=== PATIENT | female | born 1945 | race Caucasian/White ===

== ENCOUNTER 2019-07-07 13:04 | Emergency (ER) | payer MEDICARE ==
[~2019-07-07] VITALS: Ht 162.6 cm; Wt 90.7 kg
[~2019-07-07 13:04] MED LIST: ASPI325 PO; CLOP75 PO; Crestor20 MG PO; ENAL10 PO; FISH1000; GABA300 PO; Glucophage1000 MG PO; HYDCHL12.5 PO; MULVIT PO; Micro-K10 MEQ PO; Nitrostat0.4 MG SL; PROBIOTIC1 EAC1; Toprol Xl50 MG PO
[2019-07-07] MEDS ORDERED: Pantoprazole So20 MG PO (14:18)
== END 2019-07-07 14:40 | disposition home or self-care (01) ==
LOC: ER 13:04
DX: S60.222A Contusion of left hand, initial encounter (principal); S00.03XA Contusion of scalp, initial encounter; S90.02XA Contusion of left ankle, initial encounter; S00.33XA Contusion of nose, initial encounter; I25.10 Atherosclerotic heart disease of native coronary artery without angina pectoris; Z87.891 Personal history of nicotine dependence; Z88.2 Allergy status to sulfonamides; Z88.8 Allergy status to other drugs, medicaments and biological substances; Z79.899 Other long term (current) drug therapy; Z79.84 Long term (current) use of oral hypoglycemic drugs; Z79.82 Long term (current) use of aspirin; W01.10XA Fall on same level from slipping, tripping and stumbling with subsequent striking against unspecified object, initial encounter
CPT/HCPCS: 70450; 73130; 99284-25

== ENCOUNTER 2019-10-10 09:25 | Day surgery (SDC) | payer MEDICARE ==
[~2019-10-10] VITALS: Ht 160 cm; Wt 90.7 kg
[~2019-10-10 09:25] MED LIST changes: -ASPI325 PO; +ASPI81CH PO; +Pantoprazole So20 MG PO
[2019-10-10] MEDS ORDERED: ALLEGRA ALLERG180 MG PO (10:03)
[2019-10-10] MEDS ORDERED: ATOR20 PO (10:03)
[2019-10-10] MEDS ORDERED: TRULICITY1.5 MG/0.5 (10:05)
[2019-10-10] MEDS ORDERED: DULO60 PO (10:06)
[2019-10-10] MEDS ORDERED: BASAGLAR K100 UNIT/1 SC (10:06)
--- NOTE | 2019-10-10 12:17 | NUR ---
1215 DR. TRINIDAD AT THE BEDSIDE AND SPOKE WITH PATIENT REGARDING CATH RESULTS AND CHANGES IN MEDICATIONS. ALL QUESTIONS ANSWERED.
[2019-10-10] MEDS ORDERED: HYDRA25 PO (12:42)
--- NOTE | 2019-10-10 14:23 | NUR ---
1330 BEGAN REMOVEING AIR FROM THE TR BAND, PATIENT TOLERATING WILL. REMAINS IN THE RECLINER CHAIR WITH AT THE BEDSIDE. 1330- 3 CC REMOVED 1342- 3 CC REMOVED 1352- 5 CC REMOVED 1400 CONTINUE TO MONITOR, NO BLEEDING NOTED.
--- NOTE | 2019-10-10 15:06 | NUR ---
PT VERBALIZED UNDERSTANDING OF D/C INSTRUCTIONS. TR BAND REMOVED FROM RIGHT WRIST, RED CLOTH DOT APPLIED. WHITE ARM BOARD ON RIGHT WRIST FOR SUPPORT. SITE APPEARED SOFT NON TENDER WITH NO ACTIVE BLEEDING, OOZING, OR PAIN NOTED. IV REMOVED FROM LFA WITH CATH INTACT, PRESSURE DRESSING APPLIED. PT WAS ABLE TO GET SELF DRESSED WITH NO NEEDED ASSISTANCE, PT DENIES NEED FOR W/C RIDE OUT TO PRIVATE VEHICLE. PT AMBULATES OUT OF DEPARTMENT WITH STEADY GAIT, AT SIDE TO DRIVE PT HOME. DISCHARGE PAPERWORK PROVIDED IN [facility]. NADN AT TIME OF DISCHARGE, ENCOURAGED TO FOLLOW UP SCHEDULED WITH PROVIDER.
== END 2019-10-10 15:11 | disposition home or self-care (01) ==
LOC: MHTC 09:25 → EDSTATUS 15:00 → ECHO 15:00 → MHTC 15:11
PROC: 4A023N7 Measurement of Cardiac Sampling and Pressure, Left Heart, Percutaneous Approach (ICD-10-PCS; principal; 2019-10-10)
PROC: B201YZZ Plain Radiography of Multiple Coronary Arteries using Other Contrast (ICD-10-PCS; principal; 2019-10-10)
PROC: B205YZZ Plain Radiography of Left Heart using Other Contrast (ICD-10-PCS; principal; 2019-10-10)
DX: I25.119 Atherosclerotic heart disease of native coronary artery with unspecified angina pectoris (principal); E11.51 Type 2 diabetes mellitus with diabetic peripheral angiopathy without gangrene; I10 Essential (primary) hypertension; E78.5 Hyperlipidemia, unspecified; G47.33 Obstructive sleep apnea (adult) (pediatric); E66.9 Obesity, unspecified; I65.21 Occlusion and stenosis of right carotid artery; I70.8 Atherosclerosis of other arteries; Z95.5 Presence of coronary angioplasty implant and graft; Z99.89 Dependence on other enabling machines and devices; Z79.899 Other long term (current) drug therapy; Z79.82 Long term (current) use of aspirin; Z79.4 Long term (current) use of insulin; Z87.891 Personal history of nicotine dependence; Z88.2 Allergy status to sulfonamides
CPT/HCPCS: 93005; 93010; 93458; 99152; 99153; C1769; C1894; J1644; J2250; J3010; J7030; Q9967

== ENCOUNTER 2020-06-29 13:45 | Emergency (ER) | payer MEDICARE ==
[~2020-06-29] VITALS: Ht 160 cm; Wt 90.7 kg
[~2020-06-29 13:45] MED LIST changes: +ALLEGRA ALLERG180 MG PO; -ASPI81CH PO; -GABA300 PO; -Glucophage1000 MG PO; +HYDRA25 PO; -Micro-K10 MEQ PO; -Nitrostat0.4 MG SL; -Pantoprazole So20 MG PO
[2020-06-29] MEDS ORDERED: ATORVASTATIN CA80 M1 PO (14:40)
[2020-06-29] MEDS ORDERED: DULO60 PO (14:41)
[2020-06-29] MEDS ORDERED: BASAGLAR K100 UNIT/1 SC (14:41)
[2020-06-29] MEDS ORDERED: GABA300 PO (14:42)
[2020-06-29] MEDS ORDERED: ENALAPRIL MALEA PO (14:42)
[2020-06-29] MEDS ORDERED: Pantoprazole So20 MG PO (14:43)
[2020-06-29] MEDS ORDERED: METF500 PO (14:43)
[2020-06-29] MEDS ORDERED: Micro-K10 MEQ PO (14:44)
[2020-06-29] MEDS ORDERED: PRAMIPEXOLE0.125 M1 PO (14:44)
[2020-06-29] MEDS ORDERED: TRULICITY1.5 MG/0.1 SC (14:45)
[2020-06-29] MEDS ORDERED: FUROSEMIDE20 MG PO (14:46)
[2020-06-29] MEDS ORDERED: GLIP5 PO (14:47)
[2020-06-29] MEDS ORDERED: JARDIANCE10 MG PO (14:48)
[2020-06-29] MEDS ORDERED: Nitrostat0.4 MG SL (14:49)
[2020-06-29] MEDS ORDERED: INSULIN LI100 UNIT/6 SC (14:49)
[2020-06-29] MEDS ORDERED: Aspir 8181 MG PO (14:51)
[2020-06-29] MEDS ORDERED: MAGNESIUM OXID500 MG PO (17:05)
== END 2020-06-29 17:11 | disposition home or self-care (01) ==
LOC: ER 13:45
DX: R07.89 Other chest pain (principal); E11.65 Type 2 diabetes mellitus with hyperglycemia; E83.42 Hypomagnesemia; I25.10 Atherosclerotic heart disease of native coronary artery without angina pectoris; I10 Essential (primary) hypertension; Z95.5 Presence of coronary angioplasty implant and graft; Z88.2 Allergy status to sulfonamides; Z88.8 Allergy status to other drugs, medicaments and biological substances; Z79.4 Long term (current) use of insulin; Z79.899 Other long term (current) drug therapy; Z87.891 Personal history of nicotine dependence
CPT/HCPCS: 36415; 82947; 93005; 93010; 93931; 99285-25; J1815

== ENCOUNTER 2020-08-24 21:05 | Inpatient (IN) | payer MEDICARE ==
[~2020-08-24] VITALS: Ht 165.1 cm; Wt 93.9 kg
[~2020-08-24 21:05] MED LIST changes: +ATORVASTATIN CA80 M1 PO; +Aspir 8181 MG PO; +DULO60 PO; +ENALAPRIL MALEA PO; +FUROSEMIDE20 MG PO; +GABA300 PO; +GLIP5 PO; +INSULIN LI100 UNIT/6 SC; +JARDIANCE10 MG PO; +MAGNESIUM OXID500 MG PO; +METF500 PO; +Micro-K10 MEQ PO; +TRULICITY1.5 MG/0.1 SC
[2020-08-24 21:38] LABS: BASOPHILS PERCENT AUTO 1 % (0-2); EOSINOPHILS ABSOLUTE AUTO 0.22 K/mm3 (0.00-0.68); EOSINOPHILS PERCENT AUTO 1 % (0-6); Hemoglobin 15.2 g/dL (11.5-16.0); IMMATURE GRAN ABSOLUTE AUTO 0.49 K/mm3 (0.00-0.10); IMMATURE GRAN PERCENT AUTO 2 % (0-1); LYMPHOCYTES ABSOLUTE AUTO 11.33 K/mm3 (0.84-5.20); LYMPHOCYTES PERCENT AUTO 43 % (21-46); MONOCYTES ABSOLUTE AUTO 1.38 K/mm3 (0.16-1.47); MONOCYTES PERCENT AUTO 5 % (4-13); Mean Corpuscular HGB 29.7 pg (26.0-34.0); Mean Corpuscular HGB Conc 29.8 g/dL (31.5-36.5); Mean Corpuscular Volume 100 fL (80-100); Mean Platelet Volume 11.9 fL (9.1-12.4); NEUTROPHILS ABSOLUTE AUTO 13.05 K/mm3 (1.96-9.15); NEUTROPHILS PERCENT AUTO 49 % (41-73); Platelet Count 267 K/mm3 (150-400); Red Blood Cell Count 5.12 M/mm3 (3.80-5.20); White Blood Cell Count 26.67 K/mm3 (4.00-11.30)
[2020-08-24 21:40] LABS: Chloride (POC) 104 mmol/L (98-108); Creatinine (POC) 1.1 mg/dL (0.6-1.0); Glucose (ISTAT POC) 536 mg/dL (70-99); Hemoglobin (POC) 16.7 g/dL (12.0-16.0); Potassium (POC) 4.9 mmol/L (3.5-5.5); Sodium (POC) 137 mmol/L (135-148); Total CO2 (POC) 24 mmol/L (21-32)
[2020-08-24 21:54] LABS: PCO2 Arterial 46.9 mmHg (35-45); PO2 Arterial 102 mmHg (80-100); pH Blood Arterial 7.25 (7.35-7.45)
[2020-08-24 21:59] LABS: Albumin, Blood 3.5 g/dL (3.4-5.0); Albumin/Globulin Ratio 0.7 (0.8-1.8); Bilirubin, Total 0.7 mg/dL (0.1-1.0); Bun/Creatinine Ratio 19.2 (12.0-20.0); Calcium, Blood 9.4 mg/dL (8.5-10.1); Creatinine, Blood 0.99 mg/dL (0.40-1.00); Globulin, Blood 4.7 g/dL (2.2-4.0); Potassium, Blood 4.6 mmol/L (3.5-5.5); Total Protein, Blood 8.2 g/dL (6.4-8.2); Troponin I 0.125 ng/mL (0.000-0.040)
[2020-08-24 22:04] LABS: BAND PERCENT MAN 4 % (0-8); BASOPHILS PERCENT MAN 0 % (0-2); EOSINOPHILS ABSOLUTE MAN 0.26 K/mm3 (0.00-0.68); EOSINOPHILS PERCENT MAN 1 % (0-6); LYMPHOCYTES ABSOLUTE MAN 9.06 K/mm3 (0.84-5.20); LYMPHOCYTES PERCENT MAN 34 % (21-46); MONOCYTES ABSOLUTE MAN 0.26 K/mm3 (0.16-1.47); MONOCYTES PERCENT MAN 1 % (4-13); MYELOCYTE ABSOLUTE MAN 0.26 K/mm3 (0.00-0.00); MYELOCYTE PERCENT MAN 1 % (0-0); SEG NEUTROPHILS PERCENT MAN 59 % (41-73); TOTAL CELLS COUNTED 100
[2020-08-24 22:20] LABS: Influenza A, PCR Negative (NEGATIVE); Influenza B, PCR Negative (NEGATIVE); Resp Syncytial Virus, PCR Negative (NEGATIVE); SARS-Cov-2 (COVID-19) PCR, MMC Negative (NEGATIVE)
[2020-08-24 22:41] LABS: Source, Urine Catheter
[2020-08-24 22:43] LABS: Bilirubin, Urine Neg (Neg); Blood, Urine 2+ (Neg); Glucose Qualitative, Urine 4+ (Neg); Ketones, Urine Neg (Neg); Leukocyte Esterase, Urine Neg (Neg); Nitrite, Urine Neg (Neg); Protein, Urine 3+ (Neg); Specific Gravity, Urine 1.015 (1.003-1.022); Urobilinogen, Urine NORM (Normal)
[2020-08-24 22:53] LABS: Amorphous Heavy (0-Heavy); Appearance, Urine Hazy (Clear); Bacteria Few /hpf; Color, Urine Yellow (P-Yellow); Hyaline Casts 25-50 /lpf (0-2); Squamous Epithelial Cells Mod /hpf (Few); White Blood Cells, Urine 0-2 /hpf (0-5)
[2020-08-24] MEDS ORDERED: AMLO10 PO (23:13)
[2020-08-24] MEDS ORDERED: ALLEGRA ALLERG180 MG PO (23:20)
[2020-08-24] MEDS ORDERED: BASAGLAR K100 UNIT/6 SC (23:24)
[2020-08-24] MEDS ORDERED: NITR.4SL SL (23:27)
[2020-08-24] MEDS ORDERED: PANT20 PO (23:28)
[2020-08-24] MEDS ORDERED: PRAMIPEXOLE0.125 M1 PO (23:31)
--- NOTE | 2020-08-25 01:05 | NUR ---
ADMIT RECEIVED FROM ER VIA GURNEY. AWAKE AND ALERT. ATTEMPTS TO TALK AND REACHES FOR ETT WHEN RESTRAINTS LOOSENED. NODS HEAD YES/NO APPROPRIATELY. FOLLOWS SIMPLE COMMANDS. INTUBATED- 8.0 ETT, 22 AT LIP. AC 16, TV 450, PEEP 5, FIO2 40%. RR 20s. MONITOR SHOWS SR WITH BBB, RATE 90s. LAST BP 84/59. OG CLAMPED AT THIS TIME. REAL PATENT AND DRAINING CLEAR YELLOW URINE. PERIPHERAL IVs NOTED X 2, PATENT. COLOR PALE AND SKIN IS COOL. SEE ADMIT ASSESSMENT FOR FULL ASSESSMENT.
--- NOTE | 2020-08-25 01:20 | NUR ---
SEDATION PT WITH INCREASED RESTLESS AND AGITATION. KICKING LEGS AND MOVING RESTLESSLY. BP IS NOW 120/70- PROPOFOL RESTARTED AT 15MCG/KG/MIN.
[2020-08-25 02:47] LABS: BASOPHILS ABSOLUTE AUTO 0.08 K/mm3 (0.00-0.23); BASOPHILS PERCENT AUTO 0 % (0-2); EOSINOPHILS PERCENT AUTO 0 % (0-6); Hematocrit 45.5 % (33.0-51.0); Hemoglobin 14.1 g/dL (11.5-16.0); IMMATURE GRAN ABSOLUTE AUTO 0.11 K/mm3 (0.00-0.10); IMMATURE GRAN PERCENT AUTO 1 % (0-1); LYMPHOCYTES ABSOLUTE AUTO 1.23 K/mm3 (0.84-5.20); LYMPHOCYTES PERCENT AUTO 6 % (21-46); MONOCYTES ABSOLUTE AUTO 1.45 K/mm3 (0.16-1.47); MONOCYTES PERCENT AUTO 7 % (4-13); Mean Corpuscular HGB 29.9 pg (26.0-34.0); Mean Corpuscular Volume 96 fL (80-100); Mean Platelet Volume 11.7 fL (9.1-12.4); NEUTROPHILS ABSOLUTE AUTO 17.22 K/mm3 (1.96-9.15); NEUTROPHILS PERCENT AUTO 86 % (41-73); Platelet Count 202 K/mm3 (150-400); RDW Coefficient Variation 15.1 % (11.7-14.2); RDW Standard Deviation 54.2 fL (35.1-46.3); Red Blood Cell Count 4.72 M/mm3 (3.80-5.20); White Blood Cell Count 20.09 K/mm3 (4.00-11.30)
[2020-08-25 03:19] LABS: Albumin, Blood 3.1 g/dL (3.4-5.0); Albumin/Globulin Ratio 0.7 (0.8-1.8); Bilirubin, Total 0.7 mg/dL (0.1-1.0); Calcium, Blood 9.1 mg/dL (8.5-10.1); Globulin, Blood 4.2 g/dL (2.2-4.0); Magnesium, Blood 2.3 mg/dL (1.6-2.4); Phosphorus, Blood 4.3 mg/dL (2.5-4.9); Total Protein, Blood 7.3 g/dL (6.4-8.2)
[2020-08-25 03:21] LABS: Troponin I 1.04 ng/mL (0.000-0.040)
--- NOTE | 2020-08-25 04:00 | NUR ---
AGITATION CALL TO DR. CARROLL REGARDING CONTINUED AGITATION DESPITE PROPOFOL AND VERSED. NEW ORDER RECEIVED FOR ATIVAN IV. ALSO NOTIFIED MD OF CRITICAL TROPONIN LEVEL.
[2020-08-25 05:46] LABS: PCO2 Arterial 43.4 mmHg (35-45); PO2 Arterial 104 mmHg (80-100); pH Blood Arterial 7.39 (7.35-7.45)
--- NOTE | 2020-08-25 06:39 | NUR ---
SHIFT SUMMARY NO ACUTE CHANGES. REMAINS INTUBATED- AC 16, TV 450, PEEP 5, FIO2 35%. RR 16-20s. SEDATED WITH PROPOFOL BETWEEN 15-30MCG/KG/MIN. NOW INFUSING AT 30MCG/KG/MIN. ALSO MEDICATED WITH VERSED 1MG IV X 2 DOSES AND ATIVAN 2MG IV X 1 DOSE DURING NOC FOR AGITATION/RESTLESSNESS. BILATERAL SOFT WRIST RESTRAINTS IN PLACE TO PROTECT TUBES/LINES. PT DOES REACH FOR ETT WHEN RESTRAINTS OFF OR LOOSENED. FOLLOWS SIMPLE COMMANDS. NODS HEAD YES/NO AT TIMES. OCCASIONALLY HYPOTENSIVE, BUT MAP =/> 60. OG CLAMPED AT THIS TIME. REAL PATENT AND DRAINING CLEAR YELLOW URINE. TMAX 99.5F PER REAL TEMP PROBE. WILL REPORT TO ONCOMING RN WHEN AVAILABLE.
--- NOTE | 2020-08-25 07:41 | NUR ---
ASSUMED CARE BEDSIDE REPORT RECIEVED. PT IS LAYING IN BED, INTUBATED, AND SEDATED. VENT SETTINGS AC 16, TV 450, PEEP 5, FIO2 35%. PT SEDATED WITH PROPOFOL AT 30 MCG/KG/MIN. PT FURROWS BROW TO VOICE AND GRIMMACES TO NOXIOUS STIMULI. PT WITHDRAWS ALL EXTREMITIES TO NOXIOUS STIMULI. PT MAEW. SBW RESTRAINTS IN PLACE. OGT IN PLACE CLAMPED AT THIS TIME. REAL TEMP PROBE IN PLACE DRAINING CLEAR YELLOW URINE. VITAL SIGNS STABLE AT THIS TIME. WILL CONTINUE TO MONITOR.
--- NOTE | 2020-08-25 17:40 | NUR ---
SHIFT SUMMARY NO ACUTE CHANGES THIS SHIFT. PT REMAINS INTUBATED AND SEDATED. VENT SETTINGS UNCHANGED AT AC 16, TV 450, PEEP 5, FIO2 35%. PT WITH MINIMAL ETT SECRETIONS. PT SEDATED WITH PROPOFOL AT 15 MCG/KG/MIN AND PRECEDEX AT 0.5 MCG/KG/MIN. PT WITH PERIODS OF RESTLESSNESS, BUT OTHERWISE CALM THROUGHOUT THE SHIFT. SBW RESTRAINTS REMAIN IN PLACE. OGT REMAINS IN PLACE, CLAMPED AT THIS TIME. POWERGLIDE PLACED TO PÉREZ IS SALINE LOCKED. REAL TEMP PROBE IN PLACE WITH YELLOW URINE OUTPUT NOTED. VITAL SIGNS STABLE, PT WITH SBP 70-100'S WITH MAP >60. DR JACKSON AWARE AND OK WITH BP'S. PT SPOUSE CAME TO VISIT FOR SHORT TIME THIS AFTERNOON. WILL CONTINUE TO MONITOR AND REPORT OFF TO ONCOMING RN.
--- NOTE | 2020-08-25 21:27 | NUR ---
ASSUMED CARE @ 1900. REPORT FROM BRETT ADAMS. PT INTUBATED, SEDATED. PROPOFOL GTT @ 15mcg/kg/min, PRECEDEX GTT @ 0.5mcg/kg/hr. VENT: AC 16/450, 5/30%. PT GRIMACES, STIRS, & FLEXES LEGS W/ TACTILE STIMULI. UNABLE TO OPEN EYES OR FOLLOW COMMANDS. LS CLEAR THROUGHOUT. ABD SOFT, NONTENDER +BT x4. REAL PATENT & DRAINING YELLOW URINE W/ SOME BROWN SEDIMENT. +1 EDEMA TO BLE. SKIN IS PINK, COOL, DRY. WILL TITRATE MEDS TO EFFECT & REPORT APPROPRIATE.
[2020-08-26 04:51] LABS: BASOPHILS ABSOLUTE AUTO 0.03 K/mm3 (0.00-0.23); BASOPHILS PERCENT AUTO 0 % (0-2); EOSINOPHILS ABSOLUTE AUTO 0.11 K/mm3 (0.00-0.68); EOSINOPHILS PERCENT AUTO 1 % (0-6); Hematocrit 39.4 % (33.0-51.0); Hemoglobin 12.6 g/dL (11.5-16.0); IMMATURE GRAN ABSOLUTE AUTO 0.04 K/mm3 (0.00-0.10); IMMATURE GRAN PERCENT AUTO 0 % (0-1); LYMPHOCYTES ABSOLUTE AUTO 2.03 K/mm3 (0.84-5.20); LYMPHOCYTES PERCENT AUTO 17 % (21-46); MONOCYTES ABSOLUTE AUTO 0.77 K/mm3 (0.16-1.47); MONOCYTES PERCENT AUTO 7 % (4-13); Mean Corpuscular HGB 29.9 pg (26.0-34.0); Mean Corpuscular Volume 94 fL (80-100); Mean Platelet Volume 11.5 fL (9.1-12.4); NEUTROPHILS ABSOLUTE AUTO 8.69 K/mm3 (1.96-9.15); NEUTROPHILS PERCENT AUTO 75 % (41-73); Platelet Count 156 K/mm3 (150-400); RDW Coefficient Variation 14.9 % (11.7-14.2); RDW Standard Deviation 51.6 fL (35.1-46.3); Red Blood Cell Count 4.21 M/mm3 (3.80-5.20); White Blood Cell Count 11.67 K/mm3 (4.00-11.30)
[2020-08-26 05:22] LABS: Albumin, Blood 3.1 g/dL (3.4-5.0); Anion Gap 7 mmol/L (6-16); Blood Urea Nitrogen 22 mg/dL (8-24); Bun/Creatinine Ratio 20.4 (12.0-20.0); CO2, Blood 28 mmol/L (21-32); Calcium, Blood 9.1 mg/dL (8.5-10.1); Chloride, Blood 107 mmol/L (98-108); Creatinine, Blood 1.08 mg/dL (0.40-1.00); Glomerular Filtration Rate 53 (60-); Glucose, Blood 177 mg/dL (70-99); Phosphorus, Blood 3.1 mg/dL (2.5-4.9); Potassium, Blood 3.5 mmol/L (3.5-5.5); Sodium, Blood 142 mmol/L (136-145)
--- NOTE | 2020-08-26 05:47 | NUR ---
SHIFT SUMMARY: PT REMAINS INTUBATED, SEDATED. VENT: AC 16/450 5/30%. PROPOFOL GTT @ 15mcg/kg/min, PRECEDEX GTT @ 0.6mcg/kg/min. RESPONDS TO TACTILE STIMULI, PULLING @ RESTRAINS & MOVING LEGS. DOES NOT OPEN EYES OR FOLLOW COMMANDS. SEDATION TITRATED UP SLIGHTLY D/T INC AGITATION, HOWEVER ATIVAN IVP WAS MOST SUCCESSFUL W/ PT COMFORT & VENT TOLERANCE. LS DIMINISHED THROUGHOUT. HR 70s. SBP 100-70s. PRESSURES CONTINUE TO BE SOFT. 850cc OF DARK YELLOW URINE W/ RED/BROWN SEDIMENT OUT THIS SHIFT. BEDBATH COMPLETE. NO ACUTE NEG CHANGES THIS SHIFT. WILL CONTINUE TO MONITOR UNTIL REPORT OFF TO ONCOMING RN.
--- NOTE | 2020-08-26 07:30 | NUR ---
REPORT FROM [facility]. PT INTUBATED AND SEDATED. VENT SETTINGS AC 16/450/5/30%. PROPOFOL GTT 15 MCG/KG/MIN, PRECEDEXT 0.6 MCG/KG/HR. PT WAKES c PAINFUL STIMULI. PULLS ON RESTRAINTS. THRASHS EXTREMITIES. DOES NOT FOLLOW COMMANDS. LUNGS CLEAR, DIMINISHED IN BASES. MODERATE AMOUNT OF THIN CLEAR SECRETIONS THROUGH ETT. COUGH/GAG/SWALLOW REFLEX PRESENT. OGT CLAMPED. ABD ROUND, SOFT, NON TENDER. BT X 4. REAL PATENT, DRAINING CLEAR YELLOW URINE TO GRAVITY. VSS. WILL CONTINUE TO MONITOR.
--- NOTE | 2020-08-26 10:35 | NUR ---
EXTUBATION PROPOFOL PLACED ON STANDBY. PT CHANGED TO SPONT VENT SETTINGS 10/5 30%. TOLERATED WELL. OCCASIONALLY ANXIOUS, PULLING ON RESTRAINTS. ABLE TO REDIRECT AND CALM. PRECEDEX PLACED ON STANDBY. PT EXTUBATED AT 1015. RESTRAINTS REMOVED. PT c WEAK COUGH. ORIENTED TO SELF. FOLLOWS SIMPLE COMMANDS. PLACED ON 2L VIA NC. WILL CONTINUE TO MONITOR.
--- NOTE | 2020-08-26 17:46 | NUR ---
SHIFT SUMMARY PT EXTUBATED THIS SHIFT. ON RA AT THIS TIME. O2 SATS >94%. LUNGS COARSE. STRONG, WET COUGH. PT SPEAKING IN FULL SENTANCES. P/W/D. ABLE TO MANAGE SECRETIONS. PASSED BEDSIDE SWALLOW EVAL. TOLERATED FULL LIQUID DINNER s DIFFICULTIES. PT A&OX 2. FOLLOWS SIMPLE COMMANDS. OCCASIONALLY ASKS REPETITVE QUESTIONS OR HAS DIFFICULTY FINDING WORDS. REAL PATENT, DRAINING TO GRAVITY, 800 ML CLEAR YELLOW URINE OUT THIS SHIFT. VSS. INCREASED PACS AFTER PRECEDEX STOPPED AND PT EXTUBATED. PT CHANGED TO PCU STATUS. WILL CONTINUE TO MONITOR UNTIL REPORT TO ONCOMING NURSE.
[2020-08-27 04:38] LABS: BASOPHILS ABSOLUTE AUTO 0.06 K/mm3 (0.00-0.23); BASOPHILS PERCENT AUTO 1 % (0-2); EOSINOPHILS ABSOLUTE AUTO 0.16 K/mm3 (0.00-0.68); EOSINOPHILS PERCENT AUTO 1 % (0-6); Hematocrit 45.7 % (33.0-51.0); Hemoglobin 14.2 g/dL (11.5-16.0); IMMATURE GRAN ABSOLUTE AUTO 0.05 K/mm3 (0.00-0.10); IMMATURE GRAN PERCENT AUTO 0 % (0-1); LYMPHOCYTES ABSOLUTE AUTO 3.06 K/mm3 (0.84-5.20); LYMPHOCYTES PERCENT AUTO 26 % (21-46); MONOCYTES ABSOLUTE AUTO 0.89 K/mm3 (0.16-1.47); MONOCYTES PERCENT AUTO 7 % (4-13); Mean Corpuscular HGB 29.7 pg (26.0-34.0); Mean Corpuscular HGB Conc 31.1 g/dL (31.5-36.5); Mean Corpuscular Volume 96 fL (80-100); Mean Platelet Volume 11.2 fL (9.1-12.4); NEUTROPHILS ABSOLUTE AUTO 7.76 K/mm3 (1.96-9.15); NEUTROPHILS PERCENT AUTO 65 % (41-73); Platelet Count 245 K/mm3 (150-400); RDW Coefficient Variation 15.1 % (11.7-14.2); RDW Standard Deviation 54.1 fL (35.1-46.3); Red Blood Cell Count 4.78 M/mm3 (3.80-5.20); White Blood Cell Count 11.98 K/mm3 (4.00-11.30)
[2020-08-27 04:58] LABS: Albumin, Blood 3.3 g/dL (3.4-5.0); Anion Gap 7 mmol/L (6-16); Blood Urea Nitrogen 19 mg/dL (8-24); Bun/Creatinine Ratio 20.8 (12.0-20.0); CO2, Blood 28 mmol/L (21-32); Calcium, Blood 9.9 mg/dL (8.5-10.1); Chloride, Blood 109 mmol/L (98-108); Creatinine, Blood 0.92 mg/dL (0.40-1.00); Glomerular Filtration Rate >60 (60-); Glucose, Blood 153 mg/dL (70-99); Phosphorus, Blood 3.5 mg/dL (2.5-4.9); Potassium, Blood 3.6 mmol/L (3.5-5.5); Sodium, Blood 144 mmol/L (136-145)
--- NOTE | 2020-08-27 06:34 | NUR ---
PT MENTATION HAS CLEARED THROUGHOUT SHIFT, INITIAL WORD SEARCHING AND REPITITION WAS NOTED HOWEVER THIS WAS DECREASED AT MIDNOC ASSESSMENT AND NO LONGER PRESENT BY 0400 ASSESSMENT THIS AM. SHE HAS DENIED NEEDS THROUGHOUT NOC AND REPORTED THAT HER BREATHING CONTINUES TO FEEL IMPROVED WITH SATS MAINTAINING CURRENTLY ON ROOM AIR. SHE IS ABLE TO TOLERATE REPOSITIONING HERSELF WELL WITH OCCASIONAL ASSIST WITH PILLOW PLACEMENT FOR COMFORT. SHE CONTINUES TO HAVE BASELINE SINUS RHYTHM WITH FREQUENT PACS NOTED, PRESSURES HAVE MAINTAINED STABLE THROUGHOUT NOC.
--- NOTE | 2020-08-27 08:00 | NUR ---
ASSUMED CARE RECEIVED REPORT FROM BRETT WILSON. PT IS SITTING UP IN BED WAITING FOR BREAKFAST, SHE IS ALERT, AND ORIENTED TO SELF, SURROUNDINGS, AND THE MONTH. SHE ISN'T SURE OF WHAT ALL HAPPENED SINCE SHES BEEN HERE. HR IN THE 90-low 100s, DENIES CHEST PAIN AND SOB. C/O HEADACHE. REAL CATHETER PATENT AND DRAINING TO GRAVITY. ON ROOM AIR, SPO2 ~92%. BED LOW AND LOCKED. PT ABLE TO MOVE AROUND IN BED - OKAY, JUST NEEDS HELP OCCASSIONALY WITH PILLOWS. CALL LIGHT WITHIN REACH.
--- NOTE | 2020-08-27 17:53 | NUR ---
Pt sitting in chair upon arrival. Pt denies pain, nausea, and dyspnea at this time. Pt reports at baseline experiencing significant SOB with ambulation. Pt's present during visit. Engaged in therapeutic discussion regarding AD/POLST. Discussed current POLST on file. Educated on life sustaining treatment including risk factors and implications. Educated on AD and each section to complete. Offered therapeutic listening and answered questions. Dr Grossman arrives and discusses plan of care and potential for D/C tomorrow. Assisted with asking questions that were brought up prior to MD arrival. Dr Grossman answers questions with Pt and spouse agreeable with plan. Pt and spouse expresses appreciation of visit and report no other concerns at this time. Provided Palliative Care contact information and instructed to call with any questions or concerns. Spoke with Bedside BRETT Bishop and discussed case. Palliative Care will remain available.
--- NOTE | 2020-08-27 18:45 | NUR ---
ASSUMED CARE RECEIVED REPORT FROM BRETT FELIZ. ASSUMED CARE OF PT. PT RESTING COMFORTABLY, NO S/S ACUTE DISTRESS NOTED. RESPS E/U. DENIES NEEDS AT THIS TIME. CALL LIGHT, POSSESSIONS IN REACH, BED IN LOW POSITION. WCTM.
--- NOTE | 2020-08-27 19:02 | NUR ---
Received report from [facility] ICU-RN. Patient arrived from ICU 13 to Med 327 @ approximately 1845 via w/c. Patient settled to room, call light near by, bed in lowest position. CPAP at bedside. Report handed off to MECHE Ford NOC.
--- NOTE | 2020-08-27 19:55 | NUR ---
UPDATE PT TRANSFERRING TO MEDICAL FLOOR, ROOM 327. PT IS ALERT AND ORIENTED X 4, OCCASSIONALLY HAVING DIFFICULTY REMEMBERING DOCTORS' AND STAFFS' NAMES, AND IS SOMETIMES HAVING TROUBLE FINDING THE RIGHT WORD, BUT THAT IS SELDOM. AND HERSELF ARE SLIGHLTY CONCERNED ABOUT WHY THIS IS. THIS RN PASSED THAT ALONG TO [facility] FLOOR RN. SHE HAS HAD A GOOD DAY TODAY, NO CHEST PAIN, NO SHORTNESS OF BREATH, NO NAUSEA, ETC... SHE GOT UP TO THE COMMODE TWICE TODAY, AND SAT IN THE CHAIR FOR HALF THE DAY. HER REAL WAS REMOVED, AND SHE VOIDED SINCE THEN. HER APPETITE WAS NOT GREAT, SHE ATE VERY MINIMAL. WE DISCUSSED HEART FAILURE MANAGEMENT TODAY, WE HAD A LONG TALK REGARDING: MEDICATIONS (LIKE SPIRONALACTONE- A NEW ONE FOR HER), AND MEDICATION ADHERENCE, DAILY WEIGHTS (WITH SAME GENERAL CLOTHING, AND AT SAME TIME EACH MORNING IF POSSIBLE), LIMITING SALT INTAKE, GETTING SOME ACTIVITY T/O DAY (AKA NOT SITTING FOR LONG PERIODS OF TIME), THE SIGNS AND SYMPTOMS OF HEART FAILURE EXACERBATIONS AND PULMONARY EDEMA, AND WE TALKED ABOUT STRESS MANAGMENT. SHE MAY NOT HAVE THE BEST SHORT TERM MEMORY, BUT SHE SEEMED TO RETAIN THIS INFORMATION WELL - I TESTED HER ON IT LATER IN THE DAY AND SHE DID WELL. PT HAS HAD A HEADACHE, THAT HAS BEEN SUFFICIENTLY TAKEN CARE BY 650 MG TYLENOL. PT ON ROOM AIR, VITALS STABLE, AND PT HAS HAD NO MAJOR COMPLAINTS T/O DAY. AT BEDSIDE DURING VISITING HOURS, HE HAS BEEN UPDATED ON PLAN OF CARE. SUZY WAS TALKED TO LATE MORNING TODAY AND WAS UPDATED. THE WILL TELL THE DAUGHTER, SUZY, ABOUT THE TRANSFER TO MEDICAL FLOOR. PT AND OT WERE CONSULTED TODAY, THE PT AND HER ARE CONCERNED ABOUT HER NOT RETURNING TO BASELINE STRENGTH PRIOR TO BEING DISCHARGED. PT AND OT HAVE BEEN TOLD TO COME IN THE MORNING TOMORROW, SO THEIR EVALUATION CAN BE PUT IN CONSIDERATION IF THEY HAPPEN TO BE DISCHARGED TOMORROW.
[2020-08-28 05:47] LABS: BASOPHILS ABSOLUTE AUTO 0.08 K/mm3 (0.00-0.23); BASOPHILS PERCENT AUTO 1 % (0-2); EOSINOPHILS PERCENT AUTO 3 % (0-6); Hematocrit 46.5 % (33.0-51.0); Hemoglobin 14.5 g/dL (11.5-16.0); IMMATURE GRAN ABSOLUTE AUTO 0.06 K/mm3 (0.00-0.10); IMMATURE GRAN PERCENT AUTO 1 % (0-1); LYMPHOCYTES ABSOLUTE AUTO 2.41 K/mm3 (0.84-5.20); LYMPHOCYTES PERCENT AUTO 21 % (21-46); MONOCYTES ABSOLUTE AUTO 0.91 K/mm3 (0.16-1.47); MONOCYTES PERCENT AUTO 8 % (4-13); Mean Corpuscular HGB 29.7 pg (26.0-34.0); Mean Corpuscular HGB Conc 31.2 g/dL (31.5-36.5); Mean Corpuscular Volume 95 fL (80-100); Mean Platelet Volume 10.8 fL (9.1-12.4); NEUTROPHILS ABSOLUTE AUTO 7.88 K/mm3 (1.96-9.15); NEUTROPHILS PERCENT AUTO 68 % (41-73); Platelet Count 245 K/mm3 (150-400); RDW Coefficient Variation 14.9 % (11.7-14.2); RDW Standard Deviation 52.8 fL (35.1-46.3); Red Blood Cell Count 4.89 M/mm3 (3.80-5.20); White Blood Cell Count 11.64 K/mm3 (4.00-11.30)
[2020-08-28 06:13] LABS: Albumin, Blood 3.1 g/dL (3.4-5.0); Anion Gap 5 mmol/L (6-16); Blood Urea Nitrogen 20 mg/dL (8-24); Bun/Creatinine Ratio 19.4 (12.0-20.0); CO2, Blood 29 mmol/L (21-32); Calcium, Blood 9.9 mg/dL (8.5-10.1); Chloride, Blood 107 mmol/L (98-108); Creatinine, Blood 1.03 mg/dL (0.40-1.00); Glomerular Filtration Rate 56 (60-); Glucose, Blood 214 mg/dL (70-99); Phosphorus, Blood 4.8 mg/dL (2.5-4.9); Potassium, Blood 4.3 mmol/L (3.5-5.5); Sodium, Blood 141 mmol/L (136-145)
--- NOTE | 2020-08-28 07:05 | NUR ---
SHIFT SUMMARY PT RESTING COMFORTABLY, NO S/S ACUTE DISTRESS NOTED. WAS MONITORED EVERY 1-2 HOURS WITH NEEDS MET. VS REVIEWED, WNL, 02 SATS STABLE ON CPAP T/O NIGHT, 92-94%. PT DENIES SOB, DYSPNEA. UP TO BSC W/O DIFFICULTY, TOLERATED WELL. DENIES PAIN OR NEEDS AT THIS TIME. CALL LIGHT, POSSESSIONS IN REACH, BED IN LOW POSITION. REPORT GIVEN TO BRETT MCDUFFIE.
[2020-08-28] MEDS ORDERED: METO25 PO (14:20)
--- NOTE | 2020-08-28 16:13 | NUR ---
PERIPHERAL IV AND POWERGLIDE REMMOVED INTACT. NO TELE. DISCHARGE REVIEWED WITH PT AND SPOUSE. STATES IS ALLERGIC TO METOPROLOL NOT GOING TO TAKE. CALLED DR RODGERS. JAZMYN TO D/C METOPROLOL. JAZMYN TO SEND HOME. VSS.
== END 2020-08-28 16:21 | disposition home health service (06) | DRG 208 ==
LOC: ER 21:05 → ICUW 23:10 → ER 08-25 00:54 → ICUW 08-25 01:05 → MEDS 08-27 19:12
PROVIDERS: Emergency Medicine; Internal Medicine Critical Care Medicine; ADMIT Internal Medicine
PROC: 0BH17EZ Insertion of Endotracheal Airway into Trachea, Via Natural or Artificial Opening (ICD-10-PCS; principal; 2020-08-24)
PROC: 5A1945Z Respiratory Ventilation, 24-96 Consecutive Hours (ICD-10-PCS; 2020-08-24)
DX: J96.01 Acute respiratory failure with hypoxia (principal); I50.23 Acute on chronic systolic (congestive) heart failure; J18.9 Pneumonia, unspecified organism; I21.A1 Myocardial infarction type 2; I13.0 Hypertensive heart and chronic kidney disease with heart failure and stage 1 through stage 4 chronic kidney disease, or unspecified chronic kidney disease; I42.0 Dilated cardiomyopathy; G93.40 Encephalopathy, unspecified; Z20.828 Contact with and (suspected) exposure to other viral communicable diseases; I25.10 Atherosclerotic heart disease of native coronary artery without angina pectoris; F32.9 Major depressive disorder, single episode, unspecified; G47.33 Obstructive sleep apnea (adult) (pediatric); E66.01 Morbid (severe) obesity due to excess calories; E78.5 Hyperlipidemia, unspecified; I35.0 Nonrheumatic aortic (valve) stenosis; I34.0 Nonrheumatic mitral (valve) insufficiency; I73.9 Peripheral vascular disease, unspecified; E11.22 Type 2 diabetes mellitus with diabetic chronic kidney disease; N18.30 Chronic kidney disease, stage 3 unspecified; Z95.5 Presence of coronary angioplasty implant and graft; K21.9 Gastro-esophageal reflux disease without esophagitis; Z87.891 Personal history of nicotine dependence; I95.9 Hypotension, unspecified; Z68.34 Body mass index [BMI] 34.0-34.9, adult; E11.65 Type 2 diabetes mellitus with hyperglycemia; K75.81 Nonalcoholic steatohepatitis (NASH)
CPT/HCPCS: 0241U; 31500; 31720; 36415; 36600; 51702; 70450; 71045; 71046; 71260; 80047; 80053; 80069; 81001; 82803; 82947; 83605; 83735; 83880; 84100; 84145; 84484; 85014; 85025; 87040; 87070; 87205; 93005; 93010; 93306; 94002; 94003; 94660; 94762; 94770; 96374-59; 96375-59; 97116; 97161; 97165; 99285-25; A9270; A9270-GY; C1751; C9113; J0330; J0456; J0696; J1650; J1940; J2060; J2250; J2405; J2704; J3010; J7030; J7050; P9046; Q9967

== ENCOUNTER 2020-09-01 11:17 | Inpatient (IN) | payer MEDICARE ==
[~2020-09-01] VITALS: Ht 160 cm; Wt 90.0 kg
[~2020-09-01 11:17] MED LIST changes: +AMLO10 PO; +BASAGLAR K100 UNIT/6 SC; +METO25 PO; +NITR.4SL SL; +PANT20 PO; +PRAMIPEXOLE0.125 M1 PO
[2020-09-01 12:00] LABS: BASOPHILS ABSOLUTE AUTO 0.07 K/mm3 (0.00-0.23); BASOPHILS PERCENT AUTO 1 % (0-2); EOSINOPHILS ABSOLUTE AUTO 0.21 K/mm3 (0.00-0.68); EOSINOPHILS PERCENT AUTO 1 % (0-6); Hematocrit 47.6 % (33.0-51.0); Hemoglobin 14.3 g/dL (11.5-16.0); IMMATURE GRAN ABSOLUTE AUTO 0.08 K/mm3 (0.00-0.10); IMMATURE GRAN PERCENT AUTO 1 % (0-1); LYMPHOCYTES ABSOLUTE AUTO 2.75 K/mm3 (0.84-5.20); LYMPHOCYTES PERCENT AUTO 18 % (21-46); MONOCYTES ABSOLUTE AUTO 1.25 K/mm3 (0.16-1.47); MONOCYTES PERCENT AUTO 8 % (4-13); Mean Corpuscular HGB 29.4 pg (26.0-34.0); Mean Corpuscular Volume 98 fL (80-100); Mean Platelet Volume 10.9 fL (9.1-12.4); NEUTROPHILS ABSOLUTE AUTO 10.55 K/mm3 (1.96-9.15); NEUTROPHILS PERCENT AUTO 71 % (41-73); Platelet Count 268 K/mm3 (150-400); RDW Coefficient Variation 15.3 % (11.7-14.2); RDW Standard Deviation 55.1 fL (35.1-46.3); Red Blood Cell Count 4.87 M/mm3 (3.80-5.20); White Blood Cell Count 14.91 K/mm3 (4.00-11.30)
[2020-09-01 12:13] LABS: Albumin, Blood 3.2 g/dL (3.4-5.0); Albumin/Globulin Ratio 0.7 (0.8-1.8); Bilirubin, Total 0.6 mg/dL (0.1-1.0); Bun/Creatinine Ratio 10.4 (12.0-20.0); Calcium, Blood 9.6 mg/dL (8.5-10.1); Creatinine, Blood 7.48 mg/dL (0.40-1.00); Globulin, Blood 4.6 g/dL (2.2-4.0); Potassium, Blood 5.9 mmol/L (3.5-5.5); Total Protein, Blood 7.8 g/dL (6.4-8.2); Troponin I 0.024 ng/mL (0.000-0.040)
[2020-09-01] MEDS ORDERED: METOPROLOL TART25 MG PO (13:46)
[2020-09-01] MEDS ORDERED: LISI5 PO (13:47)
[2020-09-01] MEDS ORDERED: FURO40 PO (13:47)
[2020-09-01] MEDS ORDERED: AMOCLA875 PO (13:47)
[2020-09-01] MEDS ORDERED: BASAGLAR K100 UNIT/1 SC (13:48)
[2020-09-01] MEDS ORDERED: ATORVASTATIN CA80 M1 PO (13:48)
[2020-09-01] MEDS ORDERED: SPIR25 PO (13:48)
[2020-09-01] MEDS ORDERED: ENAL10 PO (13:49)
[2020-09-01] MEDS ORDERED: GABA300 PO (13:49)
[2020-09-01] MEDS ORDERED: CYMBALTA60 MG PO (13:49)
[2020-09-01] MEDS ORDERED: METFORMIN HCL500 M2 PO (13:50)
[2020-09-01] MEDS ORDERED: PRAMIPEXOLE0.125 M1 PO (13:50)
[2020-09-01] MEDS ORDERED: Pantoprazole So20 MG PO (13:50)
[2020-09-01] MEDS ORDERED: Klor-Con 1010 MEQ PO (13:51)
[2020-09-01] MEDS ORDERED: HUMALOG KW100 UNIT/1 SC (13:52)
[2020-09-01] MEDS ORDERED: TRULICITY1.5 MG/0.1 SC (13:52)
[2020-09-01] MEDS ORDERED: Nitrostat0.4 MG SL (13:53)
[2020-09-01] MEDS ORDERED: ASPIR 8181 M1 PO (13:53)
[2020-09-01] MEDS ORDERED: AMLO5 PO (15:56)
[2020-09-01] MEDS ORDERED: ALLEGRA ALLERG180 MG PO (15:57)
--- NOTE | 2020-09-01 16:00 | NUR ---
ADMISSION TO ICU / DR MACIAS: REPORT RECIEVED FROM YUSUF Collins RN IN ED. PT ARRIVED TO ICU-02 AT APPROX 1515. SHE IS A&O TO ALL ON ARRIVAL & RECOGNIZES STAFF FROM HER PRIOR ADMISSION LAST WEEK. LS CLEAR T/O. PT SNORING SLIGHTLY WHILE RESTING & HAS DESATS NOTED TO 87%, PLACED ON 2L NC W/ SATS IMPROVED > 92%. PT DOES NOT WEAR HOME O2. MONITOR SHOWS ST W/ BBB & FREQUENT PACs. HR 110s ON ARRIVAL, HYPOTENSIVE W/ SBP 80s. IVF INITIATED PER EMAR. PT CURRENTLY DENIES NAUSEA & STS HAVING NO BM SINCE ARRIVAL TO HOSPITAL. PRIOR TO THIS SHE HAS BEEN HAVING N/V/D x3-4 DAYS. ABD & BILAT FLANKS ARE NONTENDER TO PALPATION. RENAL US W/ BLADDER HAS BEEN COMPLETED & SHOWS APPROX 14 ML URINE IN BLADDER. PT STS NO VOID FOR APPROX 4 DAYS. SKIN CONDITION OVERALL CDI, SLIGHT REDNESS TO COCCYX IS BLANCHABLE & PT ENCOURAGED TO REPOSITION W/ ASSIST. DR MACIAS AT BEDSIDE TO EVAL PT & IS AWARE OF RENAL/ BLADDER US RESULTS. SHE WOULD LIKE REPEAT RENAL FUNCTION PANEL TO BE COMPLETED AT 1800 & FOR THE RESULTS TO BE CALLED TO HER CELLPHONE. SHE WOULD ALSO LIKE A REAL TO BE PLACED ACACIA FOR STRICT I&O MONITORING. ORDERS PLACED.
[2020-09-01 16:36] LABS: Source, Urine Catheter
[2020-09-01 16:40] LABS: Appearance, Urine Cloudy (Clear); Bilirubin, Urine Neg (Neg); Blood, Urine 1+ (Neg); Color, Urine Yellow (P-Yellow); Glucose Qualitative, Urine Neg (Neg); Ketones, Urine Neg (Neg); Leukocyte Esterase, Urine 2+ (Neg); Nitrite, Urine Neg (Neg); Protein, Urine 1+ (Neg); Specific Gravity, Urine 1.025 (1.003-1.022); Urobilinogen, Urine NORM (Normal)
[2020-09-01 16:52] LABS: Bacteria Mod /hpf; Squamous Epithelial Cells Many /hpf (Few)
[2020-09-01 16:53] LABS: Amorphous Mod (0-Heavy); Hyaline Casts 0-2 /lpf (0-2)
--- NOTE | 2020-09-01 19:16 | NUR ---
SHIFT SUMMARY: NO ACUTE CHANGES SINCE PRIOR UPDATES. PT STS FEELING "A LITTLE BETTER" AT THIS TIME. HYPOTENSION NOW RESOLVED W/ SBP 110-120s, HR TRENDING DOWN NOW APPROX 90 BPM. NO GI COMPLAINTS. 10 ML URINE EMPTIED FROM REAL FOR A TOTAL OF 20 ML URINE OUT SINCE ARRIVAL TO ICU. LABS NOT YET BACK TO NOTIFY DR MACIAS, ONCOMING RN AWARE OF NEED TO CALL PROVIDER W/ RESULTS. REPORT HAS BEEN GIVEN TO GABI June RN TO ASSUME CARE.
[2020-09-01 19:33] LABS: Anion Gap 20 mmol/L (6-16); Blood Urea Nitrogen 78 mg/dL (8-24); Bun/Creatinine Ratio 10.2 (12.0-20.0); CO2, Blood 16 mmol/L (21-32); Calcium, Blood 9.2 mg/dL (8.5-10.1); Chloride, Blood 98 mmol/L (98-108); Creatinine, Blood 7.61 mg/dL (0.40-1.00); Glomerular Filtration Rate 6 (60-); Glucose, Blood 113 mg/dL (70-99); Phosphorus, Blood 8.6 mg/dL (2.5-4.9); Potassium, Blood 6.6 mmol/L (3.5-5.5); Sodium, Blood 134 mmol/L (136-145)
--- NOTE | 2020-09-01 22:00 | NUR ---
CARE ASSUMED 1900 PT A/O X 4 AND CURRENTLY ON 2 L VIA NC TO KEEP SPO2 > 90%. WHEN PT IS SLEEPING SHE SNORES AND SPO2 DECREASES TO 80'S. PT APPEARS DROWSY AND FALLS ASLEEP QUICKLY. REAL CATH IN PLACE WITH 0 MLS OF URINE IN BAG. DR. MACIAS CALLED IN REGARDS TO CHEM RESULTS, CRITICAL POTASSIUM OF 6.6 AND PHOSPHATE 8.6 REPORTED. NEW ORDERS RECIEVED, SEE EMAR. PT REMAINS IN NSR WITH BBB, HR 90'S TO 110'S. SBP 130'S-150'S. PT HAS BICARB AND NS INFUSING VIA LEFT AND RIGHT WRIST IV'S. PT DENIES PAIN AND NO GI COMPLANITS.
[2020-09-01 22:31] LABS: Albumin, Blood 2.7 g/dL (3.4-5.0); Anion Gap 13 mmol/L (6-16); Blood Urea Nitrogen 79 mg/dL (8-24); CO2, Blood 20 mmol/L (21-32); Calcium, Blood 10.4 mg/dL (8.5-10.1); Chloride, Blood 101 mmol/L (98-108); Creatinine, Blood 7.18 mg/dL (0.40-1.00); Glomerular Filtration Rate 6 (60-); Glucose, Blood 153 mg/dL (70-99); Potassium, Blood 5.4 mmol/L (3.5-5.5); Sodium, Blood 134 mmol/L (136-145)
[2020-09-01 22:33] LABS: Phosphorus, Blood 8.2 mg/dL (2.5-4.9)
--- NOTE | 2020-09-01 23:40 | NUR ---
UPDATE - DR. MACIAS CALLED FOR CRITICAL RESULTS DR. MACIAS CALLED WITH RENAL FUNCTION LAB RESULTS AND TO UPDATE ON PTS URINE OUTPUT. CRITICAL PHOSPHATE OF 8.2 AND LACTIC ACID OF 5.4 REPORTED. ORDERS RECIEVED TO DECREASE BICARB RATE TO 50ML/HR. PT CONTINUES TO BE DROWSY. URINE OUTPUT IS DARK RED/BLOOD TINGED, 75 MLS. PTS HR IS 110-120'S, SINUS TACHY. BP REMAINS THE SAME (SBP 130-150'S). PT PLACED ON CPAP, PT STATES USING A CPAP MACHINE AT HOME, SPO2 > 90%.
--- NOTE | 2020-09-02 00:36 | NUR ---
UPDATE PT SLEEPING IN BED WITH CPAP, TOLERATING WELL, O2 SATS 93%. PT APPEARS TO HAVE RESTLESS LEGS. CHANGING POSITIONS IN BED WITH MINIAL ASSISTANCE. 175 MLS OF DARK BRIDGET URINE IN BAG. PT IN NSR WITH BBB AND OCCASIONAL PVC'S, HR 100-120'S. SBP 130'S AND DBP 60'S.
[2020-09-02 01:58] LABS: Eosinophils-Raw #,Urine 0
[2020-09-02 03:22] LABS: BASOPHILS ABSOLUTE AUTO 0.04 K/mm3 (0.00-0.23); BASOPHILS PERCENT AUTO 0 % (0-2); EOSINOPHILS ABSOLUTE AUTO 0.14 K/mm3 (0.00-0.68); EOSINOPHILS PERCENT AUTO 1 % (0-6); Hematocrit 40.7 % (33.0-51.0); Hemoglobin 12.6 g/dL (11.5-16.0); IMMATURE GRAN ABSOLUTE AUTO 0.07 K/mm3 (0.00-0.10); IMMATURE GRAN PERCENT AUTO 1 % (0-1); LYMPHOCYTES ABSOLUTE AUTO 2.39 K/mm3 (0.84-5.20); LYMPHOCYTES PERCENT AUTO 20 % (21-46); MONOCYTES PERCENT AUTO 11 % (4-13); Mean Corpuscular HGB 29.4 pg (26.0-34.0); Mean Corpuscular Volume 95 fL (80-100); Mean Platelet Volume 10.6 fL (9.1-12.4); NEUTROPHILS ABSOLUTE AUTO 7.76 K/mm3 (1.96-9.15); NEUTROPHILS PERCENT AUTO 66 % (41-73); Platelet Count 234 K/mm3 (150-400); RDW Coefficient Variation 15.3 % (11.7-14.2); RDW Standard Deviation 52.7 fL (35.1-46.3); Red Blood Cell Count 4.28 M/mm3 (3.80-5.20)
[2020-09-02 03:48] LABS: Albumin, Blood 2.6 g/dL (3.4-5.0); Albumin/Globulin Ratio 0.6 (0.8-1.8); Bilirubin, Total 0.6 mg/dL (0.1-1.0); Bun/Creatinine Ratio 10.5 (12.0-20.0); Creatinine, Blood 7.7 mg/dL (0.40-1.00); Magnesium, Blood 2.5 mg/dL (1.6-2.4); Potassium, Blood 5.5 mmol/L (3.5-5.5); Total Protein, Blood 6.6 g/dL (6.4-8.2)
[2020-09-02 04:07] LABS: Phosphorus, Blood 8.7 mg/dL (2.5-4.9)
--- NOTE | 2020-09-02 07:25 | NUR ---
SHIFT SUMMARY PT REMAINS ON BICARB DRIP AT 50 ML/HR. DR. MACIAS CALLED IN REGARDS TO PTS LOW BLOOD SUGAR OF 61. PT GIVEN ENSURE AND JUICE TO DRINK WITH LITTLE EFFECT. DR. MACIAS TO PUT IN NEW ORDERS AND ASKED [employer] TO BE CONSULTED IN REGARDS TO BLOOD SUGARS. PT REMAINS ON CPAP, TOLERATED WELL T/O NIGHT. PT REMAINS A/O X 4 AND ABLE TO TURN SELF IN BED. PT REMAINS IN NSR TO SINUS TACH, 110-120'S. SBP 100-130'S. PT DENIES CP, NAUSEA, DIARRHEA. ABLE TO MAKE NEEDS KNOWN. REAL DRAINING TO GRAVITY WITH 400 MLS OF DARK BRIDGET URINE. IMPROVEMENT IN COLOR FROM DARK BLOOD TINGED URINE.
--- NOTE | 2020-09-02 07:35 | NUR ---
CARE ASSUMED CARE AND REPORT ASSUMED FROM [facility] WE[facility]. PT SLEEPING BUT EASILY AROUSES TO VERBAL STIMULI. A/O X 3, CALM AND COOPERATIVE. WAS WEARING CPAP WHILE SLEEPING. BLOOD SUGAR 115 AT START OF SHIFT. BICARB INFUSING AT 50 ML/HR PER ORDER. IRREGULAR RHYTHM, WITH BBB, HR 105-120. BP WNL. LASIX GIVEN THIS AM. REAL CATH SECURED AND PATENT; CLEAR, YELLOW URINE; WILL MONITOR. TEMP 99.3; WILL MONITOR. WILL CONTINUE TO MONITOR.
--- NOTE | 2020-09-02 11:12 | NUR ---
CHANGED ROOMS PT MOVED FROM ICU ROOM 2 TO ICU ROOM 10. TOLERATED MOVEMENT WELL.
--- NOTE | 2020-09-02 12:18 | NUR ---
REASSESSMENT PT HAS SLEPT MOST OF MORNING. WEARING CPAP OFF/ON WHEN SLEEPING. IRREGULAR RHYTHM WITH BBB, HR 95-120. LUNG SOUNDS CLEAR. AFEBRILE. PT RECEIVED LINEN CHANGE AND COMPLETE BEDBATH. LAB NOTIFIED FOR DRAW. PT INCONTINENT OF STOOL. SHE IS DROWSY AND WANTING TO SLEEP. WILL CONTINUE TO MONITOR.
[2020-09-02 13:06] LABS: Albumin, Blood 2.8 g/dL (3.4-5.0); Anion Gap 12 mmol/L (6-16); Blood Urea Nitrogen 80 mg/dL (8-24); Bun/Creatinine Ratio 10.7 (12.0-20.0); CO2, Blood 28 mmol/L (21-32); Chloride, Blood 95 mmol/L (98-108); Creatinine, Blood 7.46 mg/dL (0.40-1.00); Glomerular Filtration Rate 6 (60-); Glucose, Blood 210 mg/dL (70-99); Potassium, Blood 4.9 mmol/L (3.5-5.5); Sodium, Blood 135 mmol/L (136-145)
[2020-09-02 13:08] LABS: Phosphorus, Blood 8.3 mg/dL (2.5-4.9)
[2020-09-02 15:23] LABS: Source, Urine Catheter
[2020-09-02 15:31] LABS: Appearance, Urine Clear (Clear); Bilirubin, Urine Neg (Neg); Blood, Urine 4+ (Neg); Color, Urine Yellow (P-Yellow); Glucose Qualitative, Urine Neg (Neg); Ketones, Urine Neg (Neg); Leukocyte Esterase, Urine 1+ (Neg); Nitrite, Urine Neg (Neg); Protein, Urine 1+ (Neg); Urobilinogen, Urine NORM (Normal)
[2020-09-02 15:48] LABS: Bacteria Not Seen /hpf; Squamous Epithelial Cells Few /hpf (Few)
[2020-09-02 15:49] LABS: Yeast/Fungi Urine Rare /hpf
--- NOTE | 2020-09-02 16:17 | NUR ---
REASSESSMENT PT REMAINS IN BED, SLEEPING OFF/ON THROUGHOUT AFTERNOON. VISITING AT BEDSIDE. PT IS DROWSY BUT DOES RESPOND TO LOUD AROUSAL. REMAINS A/O X 3, BUT IS SLOW TO RESPOND. BICARB GTT INFUSING AT 50 ML/HR PER ORDER; TO BE STOPPED AFTER THIS BAG. LUNG SOUNDS REMAIN CLEAR THROUGHOUT; SPO2 94% ON RA. REFUSING TO WEAR CPAP THIS AFTERNOON FOR HER NAPS. REMAINS IN IRREGULAR RHYTHM, WITH BBB, HR 100-120. SBP 85-105 THIS AFTERNOON. PT HAS VOIDED APPROX 1600 ML SINCE 0600. MD MACIAS UPDATED ON 1200 RENAL PANEL. AFEBRILE. WILL CONTINUE TO MONITOR.
--- NOTE | 2020-09-02 17:29 | NUR ---
SHIFT SUMMARY PT SLEPT MOST OF DAY AND REMAINED IN BED. BEDBATH AND LINEN CHANGE COMPLETED. PT RECEIVED LASIX 80 MG IN AM. DIURESED 2400 ML URINE FROM REAL CATH. RENAL PANEL DRAWN AT 1200 AND RESULTS TO MD MACIAS; NO NEW ORDERS. PT HAD 1 INCONTINENT BOWEL MOVEMENT. ATE SMALL AMOUNTS OF FOOD AT MEALS. NO NAUSEA AND NO VOMITING. TOLERATING DRINKING FLUIDS. HAS REMAINED IN IRREGULAR RHYTHM WITH BBB, HR 95-120. SBP HAS SLOWLY TRENDED DOWN THROUGHOUT SHIFT, RANGING FROM 85-110. AT BEDSIDE THIS AFTERNOON. REPORT TO KEELEY WEST FOR REST OF SHIFT. PT SITTING UPRIGHT IN BED EATING DINNER AT THIS TIME.
--- NOTE | 2020-09-02 19:05 | NUR ---
ASSUMED CARE: REPORT TAKEN FROM BRETT MINA. PT LAYING SUPINE ON GURNEY. AWAKES TO VERBAL STIMULI, ABLE TO FOLLOW SIMPLE COMMANDS. ORIENTED TO SELF & SITUATION, UNSURE OF THE DAY, BELIEVES IT IS WEDNESDAY. PT CALM & COOPERATIVE. MONITOR INDICATES HR IRREGULARLY IRREGULAR, 120s-110bpm. SBP LOW 100s. SEE SHIFT ASSESSMENT. PT BOOSTED IN BED, DISPLAYS ABILITY TO REPOSITION SELF IN BED. CALL LIGHT W/IN REACH.
--- NOTE | 2020-09-02 20:12 | NUR ---
HYPOTENSION PTS BP TRENDING DOWN, DR DUMONT CALLED AFTER BP 63/48, PT REMAINS AROUSABLE TO VERBAL STIMULI, ORIENTED TO SELF, LOCATION, EVENT AND FOLLOWING DIRECTIONS, BUT IS VERY TIRED AND FALLS ASLEEP DURING ASSESSMENT. LUNG SOUNDS CLEAR. NEW ORDER FOR 500ml NS BOLUS.
--- NOTE | 2020-09-03 02:50 | NUR ---
HYPOTENSION: BP FOUND TO BE TRENDING DOWN SHORTLY AFTER NS BOLUS W/ MAPs 60-40. SPOKE W/ [facility] [place], VERBAL ORDERS GIVEN FOR 250 NS BOLUS. BP REMAINED UNCHANGED, DIFF OBTAINING READINGS. MANUAL BPs TAKEN W/ SBPs 60s-80s. [place] UPDATED ON PT STATUS, VERBAL ORDERS GIVEN FOR LEVOPHED DRIP TO BE TITRATED TO EFFECT. LFA 20g IV ASSESSED FOR PATENTCY, FLUSHES & DRAWS WELL. MED STARTED PERIPHERALLY PER [place] OK. WILL MONITOR SITE FREQUENTLY. -PT REMAINED ASYMPTOMATIC THROUGHOUT THIS EPISODE. PT AWAKES EASILY TO VERBAL STIMULI, FOLLOWS COMMANDS, ABLE TO SHIFT SELF UP IN BED. SKIN REMAINS PWD. PPP.
[2020-09-03 04:03] LABS: Hematocrit 40.7 % (33.0-51.0); Hemoglobin 12.8 g/dL (11.5-16.0)
[2020-09-03 04:25] LABS: Albumin, Blood 2.7 g/dL (3.4-5.0); Anion Gap 7 mmol/L (6-16); Blood Urea Nitrogen 73 mg/dL (8-24); Bun/Creatinine Ratio 10.9 (12.0-20.0); CO2, Blood 32 mmol/L (21-32); Calcium, Blood 8.5 mg/dL (8.5-10.1); Chloride, Blood 99 mmol/L (98-108); Creatinine, Blood 6.67 mg/dL (0.40-1.00); Glomerular Filtration Rate 6 (60-); Glucose, Blood 134 mg/dL (70-99); Magnesium, Blood 2.5 mg/dL (1.6-2.4); Phosphorus, Blood 6.5 mg/dL (2.5-4.9); Potassium, Blood 4.3 mmol/L (3.5-5.5); Sodium, Blood 138 mmol/L (136-145)
--- NOTE | 2020-09-03 06:13 | NUR ---
SHIFT SUMMARY: PT SLEEPS, AWAKES EASILY TO VERBAL STIMULI & ABLE TO FOLLOW COMMANDS, QUICKLY RETURNS TO SLEEP. PT SLEPT FOR THE MAJORITY OF THE NIGHT W/ CPAP, TOLERATED WELL. SATS REMAINED >90%. SEVERAL EPISODES OF HYPOTENSION LAST NIGHT. PT RECEIVED x2 BOLUSES W/ NO SUSTAINED IMPROVEMENT. HOSPITALIST [place] AWARE & PT RECEIVED LEVOPHED FOR APPROX 2hrs UNTIL MAP SUSTAINED >65. LEVOPHED CONTINUES TO BE ON STANDBY & BP STABLE W/ MAP OF 93. WILL CONTINUE TO MONITOR UNTIL REPORT OFF TO ONCOMING RN.
--- NOTE | 2020-09-03 09:41 | NUR ---
AM NOTE... ASSUMED CARE OF PT APROX 0700. PT WAKES EASILY TO VERBAL STIMULI BUT FALLS BACK ASLEEP QUICKLY. PT DENIES ANY CHEST PAIN/PRESURE N/V OR SOB AT THIS TIME. PT IS ON 2L NC WITH O2 SATS >90% PT USES CPAP WHEN SLEEPING. L/S CLEAR T/O DIM IN THE BASES. PT IS IN SR/ST W/BBB AND PACS. PT WAS ON LEVOPHED DURING NOC SHIFT D/T HYPOTENSION, LEVOPHED WAS STOPPED AT 0500 PER NOC SHIFT RN REPORT PT'S BP HAVE BEEN ON THE SOFT SIDE BUT MAPS HAVE BEEN >60. NO EDEMA NOTED NOTED ON ASSESSMENT. CALL LIGHT IN REACH WILL CONTINUE TO MONITOR.
--- NOTE | 2020-09-03 13:37 | NUR ---
PT UPDATE... LEVOPHED WAS STARTED PER DR. BAIRD AT 1200 TO KEEP MAP >60. LEVOPHED WAS STARTED AT 3MCG/KG/MIN. DR. BOLAND CONSULTED FOR THE PT FOR HER HYPOTENSION AND EF OF 20%. PER DR. BOLAND ATTEMPT TO TITRATE THE LEVOPHED OFF SOON POSSIBLE. WILL CONTINUE TO MONITOR.
--- NOTE | 2020-09-03 14:30 | NUR ---
Echocardiogram completed.
--- NOTE | 2020-09-03 14:50 | NUR ---
PT UPDATE.... PT'S AT THE BEDSIDE, HE WAS FULLY UPDATED ON THE EVENTS OF TODAY AND THE PLAN OF CARE. DURING THIS TIME THE PT'S TOLD THIS RN THAT HER BP IS ALWAYS LOW ON THE LEFT ARM AND "NORMAL" ON HER RIGHT SIDE. THIS RN HAS BEEN TAKING HER BP ALL SHIFT FROM THE RIGHT ARM. CURRENTLY THE BP ON THE PT'S RIGHT ARM IS 113/56, THE BP ON THE LEFT SIDE WAS 57/37. THIS WILL BE PASSED ON TO THE ONCOMING RN TO MAKE THEM AWARE. WILL CONTINUE TO MONITOR.
--- NOTE | 2020-09-03 17:52 | NUR ---
SHIFT SUMMARY... PT HAS BEEN OFF OF LEVOPHED SINCE 1530, PER DR. BOLAND PT GOT A 500MLS BOLUS AND HE WANTS 50MLS PER HOUR FOR 12 HOURS THEN STOP. PT'S BP HAS BEEN SOFT BUT MAPS HAVE BEEN >60 SINCE THE 500MLS BOLUS. PT'S OTHER VS STABLE AT THIS TIME. PT'S HAS BEEN AT THE BEDSIDE SINCE 1400. PT HAD 1 EPISODE OF INCONT OF THE BOWELS AND LINEN CHANGE WAS DONE. PT GOT UP TO A CHAIR FOR DINNER WITH 1P ASSIST AND SAT UP FOR APROX 45 MINS THEN GOT BACK INTO BED. PT CONTINUES TO BE IN SINUS TACH W/ BBB AND PACS. PT'S VERBALIZED HIS CONCERNS ABOUT THE PT'S POOR APPETITE, PROVIDER IS AWARE. CALL LIGHT IN REACH WILL CONTINUE TO MONITOR UNTIL REPORT IS GIVEN TO ONCOMING RN.
--- NOTE | 2020-09-03 19:05 | NUR ---
ASSUMED CARE: PT SITTING UP IN SEMI-FOWLERS, WATCHING TV. A&O, PLEASANTLY INTERACTIVE. HR IRREGULAR, 120s-90s. SBP LOW 100s, MAP >65. LEVOPHED GTT REMAINS ON STANDBY. LS HAVE MILD INSPIRATORY WHEEZES IN THE BASES. REAL PATENT, DRAINING TO GRAVITY W/ ORANGE OUTPUT. PT HAS SEVERAL BEVERAGES ON TABLE, ENCOURAGED TO DRINK TOLERATED. CALL LIGHT W/ IN REACH.
[2020-09-04 03:11] LABS: BASOPHILS ABSOLUTE AUTO 0.04 K/mm3 (0.00-0.23); BASOPHILS PERCENT AUTO 0 % (0-2); EOSINOPHILS ABSOLUTE AUTO 0.19 K/mm3 (0.00-0.68); EOSINOPHILS PERCENT AUTO 2 % (0-6); Hematocrit 37.5 % (33.0-51.0); Hemoglobin 11.9 g/dL (11.5-16.0); IMMATURE GRAN ABSOLUTE AUTO 0.03 K/mm3 (0.00-0.10); IMMATURE GRAN PERCENT AUTO 0 % (0-1); LYMPHOCYTES ABSOLUTE AUTO 1.79 K/mm3 (0.84-5.20); LYMPHOCYTES PERCENT AUTO 18 % (21-46); MONOCYTES ABSOLUTE AUTO 0.84 K/mm3 (0.16-1.47); MONOCYTES PERCENT AUTO 9 % (4-13); Mean Corpuscular HGB 30.1 pg (26.0-34.0); Mean Corpuscular HGB Conc 31.7 g/dL (31.5-36.5); Mean Corpuscular Volume 95 fL (80-100); Mean Platelet Volume 10.5 fL (9.1-12.4); NEUTROPHILS ABSOLUTE AUTO 6.87 K/mm3 (1.96-9.15); NEUTROPHILS PERCENT AUTO 71 % (41-73); Platelet Count 203 K/mm3 (150-400); RDW Coefficient Variation 15.1 % (11.7-14.2); RDW Standard Deviation 52.9 fL (35.1-46.3); Red Blood Cell Count 3.95 M/mm3 (3.80-5.20); White Blood Cell Count 9.76 K/mm3 (4.00-11.30)
[2020-09-04 03:26] LABS: Albumin, Blood 2.7 g/dL (3.4-5.0); Anion Gap 6 mmol/L (6-16); Blood Urea Nitrogen 47 mg/dL (8-24); Bun/Creatinine Ratio 11.5 (12.0-20.0); CO2, Blood 31 mmol/L (21-32); Calcium, Blood 8.7 mg/dL (8.5-10.1); Chloride, Blood 105 mmol/L (98-108); Creatinine, Blood 4.07 mg/dL (0.40-1.00); Glomerular Filtration Rate 11 (60-); Glucose, Blood 144 mg/dL (70-99); Phosphorus, Blood 4.2 mg/dL (2.5-4.9); Potassium, Blood 4.1 mmol/L (3.5-5.5); Sodium, Blood 142 mmol/L (136-145)
--- NOTE | 2020-09-04 06:43 | NUR ---
SHIFT SUMMARY: PT SLEPT INTERMITTENLY LAST NOC; AWAKENING TO SHIFT LEG POSITIONS D/T RLS. NO ACUTE CHANGES IN MENTATION. BP REMAINS STABLE W/ MAP >65. LEVOPHED ON STANDBY SINCE 1529 YESTERDAY. 1500ml DARK ORANGE, RED URINE OUTPUT. NO ACUTE CHANGES THIS SHIFT. WILL MONITOR UNTIL REPORT OFF TO ONCOMING RN.
--- NOTE | 2020-09-04 07:00 | NUR ---
PT RECEIVED FROM [facility]. IN BED, VERBALLY ENGAGING. STATES SHE IS FEELING GOOD, HER DIET PEPSI IS "HEALING". DENIES ANY NEED FOR ANYTHING, NO COMPLAINTS. SALINE LOCK BILATERAL WRISTS. MONITOR IN SINUS RHYTHM WITH BBB AND PAC'S.
--- NOTE | 2020-09-04 09:00 | NUR ---
PT STATES, "I HAVEN'T TOLD ANYONE ABOUT THIS, BUT I AM HAVING DOUBLE VISION" WHEN QUESTIONED ABOUT IT, SHE STATES IT HAS BEEN ONGOING FOR A COUPLE OF DAYS, AND HER HAD ALSO TAKEN HER IN TO THE DOCTOR FOR C/O DOUBLE VISION A COUPLE OF WEEKS BACK. SHE STATED THAT THEY DIDN'T OFFER ANY TREATMENT.
--- NOTE | 2020-09-04 13:20 | NUR ---
PT STATES SHE HAS NOTICED HOW TIRED SHE IS AFTER JUST A LITTLE BIT OF ACTIVITY. REASSURED. REAL DISCONTINUED PER ORDERS, TOLERATED WELL. WITH 900 CC'S OUT. PT UP TO THE SIDE OF THE BED FOR HER LUNCH. HELPING REPOSITION HERSELF AND MOVE HERSELF IN THE BED. PT TO MOVE TO THE PCU WHEN THEY ARE AVAILABLE.
--- NOTE | 2020-09-04 15:26 | NUR ---
RECEVIED REPORT FROM BRETT CARRILLO IN ICU. PT TO ROOM AT 1458 VIA WHEELCHAIR. PT UP IN RECLINE. VSS. PT REPORTS SRINIVASAN 5/10 PAIN, WILL MEDICATE PER EMAR. PT A&Ox4; CALM AND COOPERATIVE WITH CARE. PT DENIES SOB, CHEST PAIN, NAUSEA, AND DIZZINESS/LIGHTHEADED. LS COARSE WITH DIM BASES. BS HYPOACTIVE x4 QUAD, NONTENDER. PER ANEL IN TELE HR SINUS TACH 120;S WITH BBB AND PAC. NO OTHER ACUTE CHAGNES. WILL CONTINUE TO MONITOR.
--- NOTE | 2020-09-04 17:34 | NUR ---
SHIFT SUMMARY NO CHANGES SINCE TRANSFER TO BED. VSS. TYLENOL ADMINISTERED FOR HEADACHE, WITH RELIEFE NOTED. WILL CONTINUE TO MONITOR UNTIL REPORT GIVEN TO ONCOMING RN.
--- NOTE | 2020-09-05 07:54 | NUR ---
SHIFT SUMMARY PATIENT PLEASENT AND COOPERATIVE THROUGHOUT THE NIGHT, PATIENT VERY CHEERFUL. PATIENT APPEARED TO SLEEP WELL LAST NIGHT. PATIENT USED HER CPAP FOR MOST OF THE NIGHT. PATIENT APPEARED TO BE ABLE TO TURN SELF IN BED. PATIENT UP TO THE BATHROOM WITH ONE ASSIST AND THE FWW SEVERAL TIMES. REPORT GIVEN TO ONCOMING RN.
[2020-09-05 09:01] LABS: BASOPHILS ABSOLUTE AUTO 0.04 K/mm3 (0.00-0.23); BASOPHILS PERCENT AUTO 0 % (0-2); EOSINOPHILS ABSOLUTE AUTO 0.34 K/mm3 (0.00-0.68); EOSINOPHILS PERCENT AUTO 3 % (0-6); Hematocrit 40.8 % (33.0-51.0); IMMATURE GRAN ABSOLUTE AUTO 0.05 K/mm3 (0.00-0.10); IMMATURE GRAN PERCENT AUTO 1 % (0-1); LYMPHOCYTES ABSOLUTE AUTO 2.17 K/mm3 (0.84-5.20); LYMPHOCYTES PERCENT AUTO 22 % (21-46); MONOCYTES ABSOLUTE AUTO 0.64 K/mm3 (0.16-1.47); MONOCYTES PERCENT AUTO 6 % (4-13); Mean Corpuscular HGB Conc 31.9 g/dL (31.5-36.5); Mean Corpuscular Volume 94 fL (80-100); Mean Platelet Volume 10.6 fL (9.1-12.4); NEUTROPHILS ABSOLUTE AUTO 6.81 K/mm3 (1.96-9.15); NEUTROPHILS PERCENT AUTO 68 % (41-73); Platelet Count 213 K/mm3 (150-400); RDW Coefficient Variation 14.9 % (11.7-14.2); RDW Standard Deviation 51.7 fL (35.1-46.3); Red Blood Cell Count 4.33 M/mm3 (3.80-5.20); White Blood Cell Count 10.05 K/mm3 (4.00-11.30)
[2020-09-05 09:33] LABS: Albumin, Blood 2.9 g/dL (3.4-5.0); Anion Gap 5 mmol/L (6-16); Blood Urea Nitrogen 31 mg/dL (8-24); Bun/Creatinine Ratio 13.4 (12.0-20.0); CO2, Blood 28 mmol/L (21-32); Calcium, Blood 9.5 mg/dL (8.5-10.1); Chloride, Blood 108 mmol/L (98-108); Creatinine, Blood 2.32 mg/dL (0.40-1.00); Glomerular Filtration Rate 22 (60-); Glucose, Blood 206 mg/dL (70-99); Phosphorus, Blood 3.3 mg/dL (2.5-4.9); Potassium, Blood 4.1 mmol/L (3.5-5.5); Sodium, Blood 141 mmol/L (136-145)
--- NOTE | 2020-09-05 14:51 | NUR ---
PT HAD A CHANGE ON TELEMETERY OF CHANGE TO BBB WITH INCREASED RATE TO 100'S-120'S. DURING EPISODE PT WAS ASYMPTOMATIC, VITALS STABLE. DR LEMON MADE AWARE AND ORDERS RECEIVED TO PROCEDE WITH DISCHARGE.
[2020-09-05] MEDS ORDERED: Aspir 8181 MG PO (15:43)
--- NOTE | 2020-09-05 16:25 | NUR ---
discharge instructions gone over with pt. instructed pt on new medications and medicatoins to stop taking. belongings and discharge papers given to pt. pt escorted out via wheelchair by pct.
== END 2020-09-05 16:25 | disposition home or self-care (01) | DRG 682 ==
LOC: ER 11:17 → ICUW 13:38 → ICUE 13:38 → ICUW 09-02 11:28 → ICUE 09-02 17:32 → PCU 09-04 14:13
PROVIDERS: Emergency Medicine; Family Medicine; Internal Medicine; Student in an Organized Health Care Education/Training Program; ADMIT Family Medicine
PROC: 5A09357 Assistance with Respiratory Ventilation, Less than 24 Consecutive Hours, Continuous Positive Airway Pressure (ICD-10-PCS; principal; 2020-09-01)
DX: N17.0 Acute kidney failure with tubular necrosis (principal); I50.23 Acute on chronic systolic (congestive) heart failure; I42.0 Dilated cardiomyopathy; I13.0 Hypertensive heart and chronic kidney disease with heart failure and stage 1 through stage 4 chronic kidney disease, or unspecified chronic kidney disease; I25.10 Atherosclerotic heart disease of native coronary artery without angina pectoris; Z87.891 Personal history of nicotine dependence; Z68.34 Body mass index [BMI] 34.0-34.9, adult; E11.21 Type 2 diabetes mellitus with diabetic nephropathy; I44.7 Left bundle-branch block, unspecified; N18.30 Chronic kidney disease, stage 3 unspecified; E87.5 Hyperkalemia; I35.0 Nonrheumatic aortic (valve) stenosis; E78.5 Hyperlipidemia, unspecified; Z79.82 Long term (current) use of aspirin; I65.29 Occlusion and stenosis of unspecified carotid artery; K75.81 Nonalcoholic steatohepatitis (NASH); F32.9 Major depressive disorder, single episode, unspecified; Z98.61 Coronary angioplasty status; I34.0 Nonrheumatic mitral (valve) insufficiency; Z79.4 Long term (current) use of insulin; E83.39 Other disorders of phosphorus metabolism
CPT/HCPCS: 36415; 51703; 76770; 80053; 80069; 81001; 82550; 82947; 83605; 83690; 83735; 84100; 84484; 85014; 85018; 85025; 87086; 87205; 93005; 93010; 93308; 93321; 94660; 94762; 96361; 96374; 96375; 97110; 97116; 97161; 97166; 97530; 97535; 99285-25; A9270; A9270-GY; J1650; J1815; J1940; J2405; J3010; J7030; J7040; J7050; J7060; J7070

== ENCOUNTER 2020-10-16 05:45 | Day surgery (SDC) | payer MEDICARE ==
[~2020-10-16] VITALS: Ht 160 cm; Wt 94.0 kg
[~2020-10-16 05:45] MED LIST changes: +AMLO5 PO; +AMOCLA875 PO; +ASPIR 8181 M1 PO; +BASAGLAR K100 UNIT/1 SC; +CENTRUM SILVER1 EAC2 PO; +CETI5 PO; +CYMBALTA60 MG PO; +FURO40 PO; +HUMALOG KW100 UNIT/1 SC; +Klor-Con 1010 MEQ PO; +LISI5 PO; +MAGONATE54 MG/5 ML PO; +METFORMIN HCL500 M2 PO; +METOPROLOL TART25 MG PO; +Nitrostat0.4 MG SL; +Pantoprazole So20 MG PO; +RANO500T PO; +ROSU5 PO; +SPIR25 PO
[2020-10-16] MEDS ORDERED: ATOR80 PO (06:26)
[2020-10-16] MEDS ORDERED: TRULICITY4.5 MG/0.5 SC (06:27)
--- NOTE | 2020-10-16 08:05 | NUR ---
PT TO RECOVERY ROOM POST PROCEDURE. PT AWAKE AND CONVERSING APPROPRIATELY; DENIES CHEST PAIN POST PROCEDURE. MONITOR SR WITH IVCD 80'S, B/P 103/65, AFEBRILE, SPO2 95% RA. R RADIAL SITE NO SWELLING/HEMATOMA, TR BAND IN PLACE; RUE POSITIVE PLUETH. PT TAKING SIPS OF FLUIDS WITHOUT ISSUE.
--- NOTE | 2020-10-16 09:00 | NUR ---
RRAD TR BAND FULLY DEFLATED, REMAINS ON WRIST, WITH ARM BOARD FOR SUPPORT. NO ACTIVE BLEEDING, OOZING, OR PAIN NOTED. PT CALLED TO INFORM HIM OF PLAN FOR DISCHARGE, AWAITING CALL BACK.
--- NOTE | 2020-10-16 09:50 | NUR ---
PT AMB TO BATHROOM, GAIT STEADY-SITE UNCHANGED WITH ACTIVITY. PT DRESSED SELF WITHOUT ISSUE, SITE UNCHANGED.
--- NOTE | 2020-10-16 09:55 | NUR ---
TR BAND REMOVED CLOTH DOT AND WRIST IMMOBILIZER PLACED. PT INSTRUCTED ON SITE MANAGEMENT AND WHAT TO DO IF SITE BLEEDS; VERBALIZED GOOD UNDERSTANDING.
--- NOTE | 2020-10-16 10:03 | NUR ---
PT RECEIVED DISCHARGE INSTRUCTIONS, MED LIST AND AFTER CARE INSTRUCTIONS; VERBALIZED GOOD UNDERSTANDING. PT LEFT FACILITY VIA W/C, CONDITION STABLE.
== END 2020-10-16 10:03 | disposition home or self-care (01) ==
LOC: MHTC 05:45
DX: I35.0 Nonrheumatic aortic (valve) stenosis (principal); I25.10 Atherosclerotic heart disease of native coronary artery without angina pectoris; I10 Essential (primary) hypertension; E11.9 Type 2 diabetes mellitus without complications; E78.5 Hyperlipidemia, unspecified; E66.9 Obesity, unspecified; Z88.2 Allergy status to sulfonamides; Z88.8 Allergy status to other drugs, medicaments and biological substances; Z87.891 Personal history of nicotine dependence; Z79.4 Long term (current) use of insulin; Z86.79 Personal history of other diseases of the circulatory system
CPT/HCPCS: 76937; 93454; 99152; C1769; C1894; J1644; J2250; J3010; J7030; J7050; Q9967

== ENCOUNTER 2020-11-18 21:01 | Emergency (ER) | payer MEDICARE ==
[~2020-11-18] VITALS: Ht 160 cm; Wt 90.7 kg
[~2020-11-18 21:01] MED LIST changes: +ATOR80 PO; +TRULICITY4.5 MG/0.5 SC
[2020-11-18 22:30] LABS: BASOPHILS ABSOLUTE AUTO 0.06 K/mm3 (0.00-0.23); BASOPHILS PERCENT AUTO 1 % (0-2); EOSINOPHILS ABSOLUTE AUTO 0.23 K/mm3 (0.00-0.68); EOSINOPHILS PERCENT AUTO 2 % (0-6); Hematocrit 48.2 % (33.0-51.0); IMMATURE GRAN ABSOLUTE AUTO 0.06 K/mm3 (0.00-0.10); IMMATURE GRAN PERCENT AUTO 1 % (0-1); LYMPHOCYTES ABSOLUTE AUTO 3.28 K/mm3 (0.84-5.20); LYMPHOCYTES PERCENT AUTO 26 % (21-46); MONOCYTES ABSOLUTE AUTO 1.02 K/mm3 (0.16-1.47); MONOCYTES PERCENT AUTO 8 % (4-13); Mean Corpuscular HGB 30.4 pg (26.0-34.0); Mean Corpuscular HGB Conc 33.2 g/dL (31.5-36.5); Mean Corpuscular Volume 92 fL (80-100); Mean Platelet Volume 10.6 fL (9.1-12.4); NEUTROPHILS ABSOLUTE AUTO 7.81 K/mm3 (1.96-9.15); NEUTROPHILS PERCENT AUTO 63 % (41-73); Platelet Count 222 K/mm3 (150-400); RDW Standard Deviation 51.4 fL (35.1-46.3); Red Blood Cell Count 5.27 M/mm3 (3.80-5.20); White Blood Cell Count 12.46 K/mm3 (4.00-11.30)
[2020-11-18 22:49] LABS: Alanine Aminotransfer (ALT/SGP 50 U/L (12-78); Albumin, Blood 3.6 g/dL (3.4-5.0); Albumin/Globulin Ratio 0.9 (0.8-1.8); Alk Phos 263 U/L (50-136); Anion Gap 6 mmol/L (6-16); Aspartate Aminotrans (AST/SGOT 21 U/L (12-37); Bilirubin, Total 0.5 mg/dL (0.1-1.0); Blood Urea Nitrogen 24 mg/dL (8-24); Bun/Creatinine Ratio 25.3 (12.0-20.0); CO2, Blood 30 mmol/L (21-32); Calcium, Blood 9.7 mg/dL (8.5-10.1); Chloride, Blood 99 mmol/L (98-108); Creatinine, Blood 0.95 mg/dL (0.40-1.00); Globulin, Blood 4.2 g/dL (2.2-4.0); Glomerular Filtration Rate >60 (60-); Glucose, Blood 346 mg/dL (70-99); Potassium, Blood 4.4 mmol/L (3.5-5.5); Sodium, Blood 135 mmol/L (136-145); Total Protein, Blood 7.8 g/dL (6.4-8.2)
== END 2020-11-19 01:39 | disposition home or self-care (01) ==
LOC: ER 21:01
PROVIDERS: Physician Assistant
DX: E11.65 Type 2 diabetes mellitus with hyperglycemia (principal); I11.0 Hypertensive heart disease with heart failure; N18.30 Chronic kidney disease, stage 3 unspecified; I50.9 Heart failure, unspecified; Z88.2 Allergy status to sulfonamides; Z88.8 Allergy status to other drugs, medicaments and biological substances
CPT/HCPCS: 36415; 80048; 80053; 82947; 85025; 85610; 99283; J7030

== ENCOUNTER → 2021-12-22 | Outpatient (CLI) | payer MEDICARE ==
[~2021-12-22] MED LIST changes: +FARXIGA10 MG PO; +FURO20 PO; +INSULANI; +NEOPOLHCSU LEFTEAR; +SERT50 PO; +TRULICITY3 MG/0.5 M
[2021-12-22 14:45] LABS: BASOPHILS ABSOLUTE AUTO 0.05 K/mm3 (0.00-0.23); BASOPHILS PERCENT AUTO 1 % (0-2); EOSINOPHILS ABSOLUTE AUTO 0.11 K/mm3 (0.00-0.68); EOSINOPHILS PERCENT AUTO 1 % (0-6); Hemoglobin 15.4 g/dL (11.5-16.0); IMMATURE GRAN ABSOLUTE AUTO 0.04 K/mm3 (0.00-0.10); IMMATURE GRAN PERCENT AUTO 1 % (0-1); LYMPHOCYTES ABSOLUTE AUTO 1.73 K/mm3 (0.84-5.20); LYMPHOCYTES PERCENT AUTO 22 % (21-46); MONOCYTES ABSOLUTE AUTO 0.51 K/mm3 (0.16-1.47); MONOCYTES PERCENT AUTO 7 % (4-13); Mean Corpuscular HGB 29.9 pg (26.0-34.0); Mean Corpuscular HGB Conc 31.4 g/dL (31.5-36.5); Mean Corpuscular Volume 95 fL (80-100); Mean Platelet Volume 10.7 fL (9.1-12.4); NEUTROPHILS PERCENT AUTO 69 % (41-73); Platelet Count 198 K/mm3 (150-400); RDW Standard Deviation 59.7 fL (35.1-46.3); Red Blood Cell Count 5.15 M/mm3 (3.80-5.20); White Blood Cell Count 7.74 K/mm3 (4.00-11.30)
[2021-12-22 15:40] LABS: Alanine Aminotransfer (ALT/SGP 109 U/L (12-78); Albumin, Blood 3.4 g/dL (3.4-5.0); Albumin/Globulin Ratio 0.8 (0.8-1.8); Alk Phos 263 U/L (50-136); Anion Gap 7 mmol/L (6-16); Aspartate Aminotrans (AST/SGOT 64 U/L (12-37); Bilirubin, Total 0.7 mg/dL (0.1-1.0); Blood Urea Nitrogen 22 mg/dL (8-24); Bun/Creatinine Ratio 27.1 (12.0-20.0); CO2, Blood 26 mmol/L (21-32); Calcium, Blood 9.8 mg/dL (8.5-10.1); Chloride, Blood 107 mmol/L (98-108); Creatinine, Blood 0.81 mg/dL (0.40-1.00); Globulin, Blood 4.2 g/dL (2.2-4.0); Glomerular Filtration Rate >60 (60-); Glucose, Blood 258 mg/dL (70-99); Potassium, Blood 4.7 mmol/L (3.5-5.5); Sodium, Blood 140 mmol/L (136-145); Total Protein, Blood 7.6 g/dL (6.4-8.2)
== END ==
LOC: LAB SHORT 14:40
PROVIDERS: Physician Assistant Medical
DX: R07.9 Chest pain, unspecified (principal); R06.09 Other forms of dyspnea
CPT/HCPCS: 80053; 83880; 84484; 85025

== ENCOUNTER 2022-01-10 10:59 | Inpatient (IN) | payer MEDICARE ==
[~2022-01-10] VITALS: Ht 160 cm; Wt 85.5 kg
[2022-01-10 11:52] LABS: BASOPHILS ABSOLUTE AUTO 0.03 K/mm3 (0.00-0.23); BASOPHILS PERCENT AUTO 0 % (0-2); EOSINOPHILS ABSOLUTE AUTO 0.03 K/mm3 (0.00-0.68); EOSINOPHILS PERCENT AUTO 0 % (0-6); Hematocrit 51.3 % (33.0-51.0); IMMATURE GRAN ABSOLUTE AUTO 0.04 K/mm3 (0.00-0.10); IMMATURE GRAN PERCENT AUTO 1 % (0-1); LYMPHOCYTES ABSOLUTE AUTO 1.34 K/mm3 (0.84-5.20); LYMPHOCYTES PERCENT AUTO 16 % (21-46); MONOCYTES ABSOLUTE AUTO 0.57 K/mm3 (0.16-1.47); MONOCYTES PERCENT AUTO 7 % (4-13); Mean Corpuscular HGB 29.6 pg (26.0-34.0); Mean Corpuscular HGB Conc 31.2 g/dL (31.5-36.5); Mean Corpuscular Volume 95 fL (80-100); Mean Platelet Volume 10.4 fL (9.1-12.4); NEUTROPHILS ABSOLUTE AUTO 6.44 K/mm3 (1.96-9.15); NEUTROPHILS PERCENT AUTO 76 % (41-73); Platelet Count 155 K/mm3 (150-400); RDW Standard Deviation 59.6 fL (35.1-46.3); Red Blood Cell Count 5.41 M/mm3 (3.80-5.20); White Blood Cell Count 8.45 K/mm3 (4.00-11.30)
[2022-01-10 12:13] LABS: Alanine Aminotransfer (ALT/SGP 61 U/L (12-78); Albumin, Blood 3.5 g/dL (3.4-5.0); Albumin/Globulin Ratio 0.9 (0.8-1.8); Alk Phos 242 U/L (50-136); Anion Gap 8 mmol/L (6-16); Aspartate Aminotrans (AST/SGOT 44 U/L (12-37); Bilirubin, Total 0.7 mg/dL (0.1-1.0); Blood Urea Nitrogen 23 mg/dL (8-24); Bun/Creatinine Ratio 26.5 (12.0-20.0); CO2, Blood 26 mmol/L (21-32); Calcium, Blood 9.4 mg/dL (8.5-10.1); Chloride, Blood 106 mmol/L (98-108); Creatinine, Blood 0.87 mg/dL (0.40-1.00); Glomerular Filtration Rate >60 (60-); Glucose, Blood 340 mg/dL (70-99); Potassium, Blood 4.1 mmol/L (3.5-5.5); Sodium, Blood 140 mmol/L (136-145); Total Protein, Blood 7.5 g/dL (6.4-8.2)
[2022-01-10 12:54] LABS: Influenza A, PCR NEGATIVE (NEGATIVE); Influenza B, PCR NEGATIVE (NEGATIVE); Resp Syncytial Virus, PCR NEGATIVE (NEGATIVE); SARS-Cov-2 (COVID-19) PCR, MMC NEGATIVE (NEGATIVE)
[2022-01-10] MEDS ORDERED: PRED20 PO (13:27)
[2022-01-10] MEDS ORDERED: ALBU90OI INH (13:27)
[2022-01-10 15:49] LABS: Source, Urine Foley catheter
[2022-01-10 15:52] LABS: Bilirubin, Urine Neg (Neg); Blood, Urine Neg (Neg); Color, Urine Yellow (P-Yellow); Glucose Qualitative, Urine 4+ (Neg); Ketones, Urine 1+ (Neg); Leukocyte Esterase, Urine Neg (Neg); Nitrite, Urine Neg (Neg); Protein, Urine 2+ (Neg); Specific Gravity, Urine 1.025 (1.003-1.022); Urobilinogen, Urine NORM (Normal)
[2022-01-10 16:07] LABS: Appearance, Urine Hazy (Clear); Yeast/Fungi Urine Many /hpf
[2022-01-10 16:09] LABS: Bacteria Mod /hpf; Red Blood Cells, Urine Rare /hpf (0-2); Squamous Epithelial Cells Rare /hpf (Few); White Blood Cells, Urine Rare /hpf (0-5)
[2022-01-10] MEDS ORDERED: ASPI81CH PO (17:39)
[2022-01-10] MEDS ORDERED: ATORVASTATIN CA80 M1 PO (17:40)
[2022-01-10] MEDS ORDERED: FARXIGA10 MG PO (17:41)
[2022-01-10] MEDS ORDERED: TRULICITY3 MG/0.5 M SC (17:42)
[2022-01-10] MEDS ORDERED: ENALAPRIL MALEA10 M2 PO (17:43)
[2022-01-10] MEDS ORDERED: ALLEGRA ALLERG180 MG PO (17:45)
[2022-01-10] MEDS ORDERED: FURO20 PO (17:48)
[2022-01-10] MEDS ORDERED: GABA300 PO (17:49)
[2022-01-10] MEDS ORDERED: Glucophage 500 mg PO (17:50)
[2022-01-10] MEDS ORDERED: KLOR-CON 1010 ME1 PO (17:51)
[2022-01-10] MEDS ORDERED: MIRAPEX0.125 MG PO (17:53)
--- NOTE | 2022-01-10 18:26 | NUR ---
SUMMARY PT ADMITTED FROM THE ER FOR CHF, PT ABLE TO STAND AND TRANSFER SELF FROM [facility] TO THE BED, PT ALERT AND ORIENTED, ON 2L NC, PT REPORTS NO OXYGEN AT HOME, SHE DOES WEAR A CPAP AT HOME, RT DID BRING A CPAP TO THE ROOM, PT DENIES ANY CHEST PAIN, REAL CATH DRAINING CLEAR YELLOW URINE, VSS, WILL CONT TO MONITOR
--- NOTE | 2022-01-10 21:25 | NUR ---
CONTACTED DR ARMAS REGARDING PT CBG OF 374. INFORMED HER OF PT TAKING METFORMIN, LONG ACTING INSULIN, AND NOVOLOG. NO OTHER ORDERS AT THIS TIME. CBG TO BE TAKEN IN THE AM.
--- NOTE | 2022-01-11 04:03 | NUR ---
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 PT IS A DNR. SHE HAS BEEN USING 2L BY NC DURING THE DAY AND SLEEPING WITH CPAP AT NIGHT. PT NORMALLY NOT ON OXYGEN AT HOME. SHE HAS HAD DECREASED SOB AND REPORTS IMPROVEMENT WITH HER BREATHING. SLIGHT EXPIRATORY WHEEZE HEARD IN ALL LUNG HDZ. REAL PATENT AND DRAINING LARGE AMOUNT OF CLEAR YELLOW URINE. SHE IS ALERT AND ORIENTED X4. PLAN TO DC TODAY IF BREATHING HAS IMPROVED.
[2022-01-11 07:24] LABS: BASOPHILS ABSOLUTE AUTO 0.02 K/mm3 (0.00-0.23); BASOPHILS PERCENT AUTO 0 % (0-2); EOSINOPHILS ABSOLUTE AUTO 0.01 K/mm3 (0.00-0.68); EOSINOPHILS PERCENT AUTO 0 % (0-6); Hematocrit 48.3 % (33.0-51.0); Hemoglobin 15.2 g/dL (11.5-16.0); IMMATURE GRAN ABSOLUTE AUTO 0.03 K/mm3 (0.00-0.10); IMMATURE GRAN PERCENT AUTO 0 % (0-1); LYMPHOCYTES ABSOLUTE AUTO 1.32 K/mm3 (0.84-5.20); LYMPHOCYTES PERCENT AUTO 15 % (21-46); MONOCYTES ABSOLUTE AUTO 0.65 K/mm3 (0.16-1.47); MONOCYTES PERCENT AUTO 8 % (4-13); Mean Corpuscular HGB Conc 31.5 g/dL (31.5-36.5); Mean Corpuscular Volume 95 fL (80-100); NEUTROPHILS ABSOLUTE AUTO 6.62 K/mm3 (1.96-9.15); NEUTROPHILS PERCENT AUTO 77 % (41-73); Platelet Count 161 K/mm3 (150-400); RDW Coefficient Variation 16.9 % (11.7-14.2); RDW Standard Deviation 59.7 fL (35.1-46.3); Red Blood Cell Count 5.07 M/mm3 (3.80-5.20); White Blood Cell Count 8.65 K/mm3 (4.00-11.30)
[2022-01-11 07:27] LABS: Albumin, Blood 3.2 g/dL (3.4-5.0); Anion Gap 6 mmol/L (6-16); Blood Urea Nitrogen 27 mg/dL (8-24); Bun/Creatinine Ratio 28.1 (12.0-20.0); CO2, Blood 27 mmol/L (21-32); Calcium, Blood 8.9 mg/dL (8.5-10.1); Chloride, Blood 106 mmol/L (98-108); Creatinine, Blood 0.96 mg/dL (0.40-1.00); Glomerular Filtration Rate 57 (60-); Glucose, Blood 257 mg/dL (70-99); Magnesium, Blood 2.1 mg/dL (1.6-2.4); Phosphorus, Blood 3.8 mg/dL (2.5-4.9); Potassium, Blood 4.3 mmol/L (3.5-5.5); Sodium, Blood 139 mmol/L (136-145)
[2022-01-11 09:34] LABS: Base Excess Venous -0.5 mmol/L; Bicarbonate Venous 23.5 mmol/L (24.0-30.0); PO2 Venous 98.4 mmHg (38-42); pH Blood Venous 7.35 (7.34-7.37)
--- NOTE | 2022-01-11 10:36 | NUR ---
RESPIRATORY DISTRESS ROUNDED ON PT AT APPROXIMATELY 0830 AND FOUND HER ATTEMPTING TO GET UP BY HERSELFT REPORTING SHE HAD TO HAVE A BM. PT WAS ON CPAP/BIOX/TELE SO ASSISTED PT TO BSC THOUGH PT WAS WEAK ON HER FEET/UNSTABLE WITH SOME STOOL COMING OUT MID TRANSFER. PT WAS VISUALY STRUGGLING TO BREATH, O2 TURNED UP AND INSTRUCTED PT TO TAKE A FEW FOCUSED DEEP BREATHS IN WHICH AFTER DOING SO SHE REPORTED SOME IMPROVEMENT. DR AT BEDSIDE AND EVALUATED HER LUNGS/BREATHING. CLEANED UP HER BED/FLOOR WHILE MONITORING HER BREATHING AND OXYGEN LEVELS WITH ASSISTANCE OF ANOTHER RN. GOT PT CLEANED UP AND BACK IN BED WITH 2 PERSON ASSIST, PERFORMED ORDERED EKG, LAB ONEAL VBG, O2 BLEED IN CRANKED UP TO 15L. PT REPORTED FEELING NAUSEATED AND STARTED DRY HEAVING, NEW ORDER FOR ZOFRAN FROM WHICH WAS GIVEN IMMEDIATELY. PT REPORTED FEELING LIKE SHE WAS GOING TO HAVE ANOTHER BM SO SHE WAS ASSISTED ONTO A BEDPAN D/T HER INSTABILITY DURING THE PREVIOUS BSC TRANSFER AND HER CURRENT RESPIRATORY STATUS. PT SAT UP ON EDGE OF BED WITH MULTIPLE RN'S AT BEDSIDE. PT SATS STARTED TO IMPROVE, HR HAD ALSO BEEN TACHY IN LOW TO MID 140'S WHICH WAS ALSO STARTING TO IMPROVE. PT REPORTED STARTING TO FEEL BETTER WELL. THIS RN STAYED IN PT ROOM UNTIL SHE WAS STABILIZED. PT ABLE TO GO DOWN TO 6L NC AT AROUND 0935 AND WAS GIVEN HER MORNING MEDS BY STUDENT RN. PT ABLE TO TAKE ALL HER MEDS WITH EVEN UNLABORED BREATHING. ATTENDING CONSULTED CARDIOLOGY AND UPDATED PT ON PLAN OF CARE MOVING FORWARD, ALSO CONFIRMED CODE STATUS WITH PATIENT OF DNR. NEW DNR BAND PLACED ON PT WRIST. AT BEDSIDE, PT IN NO ACUTE DISTRESS. WILL CTM.
--- NOTE | 2022-01-11 18:00 | NUR ---
SHIFT SUMMARY AT THE BEGINNING OF SHIFT, PT EXPRESSED A WISH TO STAND AND AMBULATE TO THE BATHROOM WITH ASSISTANCE. UPON MILD EXERTION, PT EXPERIENCED SUDDEN AND SEVERE INCREASE IN DYSPNEA, REQUIRING INTERVENTION FROM DR MARQUEZ AND RESPIRATORY THERAPY. PT WAS GIVEN 15LPM O2 VIA CPAP WHICH HELPED PT'S OXYGEN SATURATION INCREASE AND HEART RATE DECREASE. PT WAS ABLE TO ESTABLISH A BASELILNE AT 6LPM O2 VIA NC, MAINTAINING SPO2 IN THE 90S BUT QUICKLY DESATURATES UPON ANY FORM OF EXERTION. SEE RN NOTE BY CHRISTINE PIERCE FOR MORE DETAILS. PER CARDIOLOGY, PT IS AWAITING TRANSFER PLACEMENT FOR A VALVE REPLACEMENT. BLOOD GLUCOSE CHECKED AND MEDICATIONS ADMINISTERED ORDERED THROUGHOUT THE SHIFT. PT NOTED TO HAVE A MINIMAL APPETITE. PT IS RESTING IN HER ROOM W/ PRESENT AT THIS TIME.
--- NOTE | 2022-01-11 18:11 | NUR ---
STUDENT RN REVIEWED ALL DOCUMENTATION MADE BY STUDENT RN AND AGREE WITH ALL HIS CHARTING.
--- NOTE | 2022-01-12 05:19 | NUR ---
SHIFT SUMMARY: PATIENT REMAINS ON 6L VIA NC. WITH LABORED WORK OF BREATHING AND TACYPNEA. AFTER EVENING MEDPASS PATINET PLACED ON CPAP WITH 6L BLEED IN. WORK OF BREATHING IMPROVED ALTHOUGH REMAINS WITH ACCESSORY MUSCLE USE. RT AT BEDSIDE TO EVALUATE. COARSE WHEEZES T/O. PATIENT ATTEMPTED TO EXIT BED TWICE ON NOC SHIFT, SHE WAS EASILY REDIRECTED WHEN REMINDED OF RESPRIATORY STATUS. TELE= ST 100-120S HR ELEVATES WHEN REPOSITIONG SELF IN BED. REAL IN PLACE CLEAR URINE DRAINING. HAD REMAINED ON BED REST DUE TO FRAGILE RESPRIATORY STATUS.
--- NOTE | 2022-01-12 08:00 | NUR ---
Pt laying in bed with cpap in place with 6liter bleed in, is on 6 liters n/c when off cpap, spouce at bedside, he was concerned about her having metoprolol because of how he responded to it, Dr. Rivera answered those concerns, pt is a/ox 2-3, cooperative with care, follows commands well, denies pain, lungs are course with exp wheezing t/o, resp even and unlabored, has a productive cough of yellow sputum, hrr, tele in place running sr to st per monitor, see strip, trace edema noted to b/l le, pp faint, cap refill <3sec, vs stable, afebrile, iv site is clear and patent, s.l. btx4, abd round soft nontender, abraham cath draining clear yellow urine, skin c/w/d, vlad byers, call light in reach.
--- NOTE | 2022-01-12 15:04 | NUR ---
Pt has been tx to pcu 2 via bed with all belongings. RT in attendence, to manage o2 and take cpap, spouce in attendence. report was given to Carroll WEST. medications went with her.
--- NOTE | 2022-01-12 16:58 | NUR ---
TRANSFER/ASSUMPTION OF CARE/END OF SHIFT PATIENT ARRIVED TO PCU ON 6L VIA NC AND SWITCHED OVER TO BIPAP 15 6 LITER BLEED IN. SR TO [facility]. PLAN FOR TAVR WITH COBRA TRANSFER CD AND PACKET FILLED OUT DR. Wills IS WORKING ON PEER TO PEER. ALERT AND ORIENTED, ABLE TO MAKE NEEDS KNOWN AND USES CALL LIGHT APPROPRIATELY THIS SHOULF BE DAY NUMBER TWO. LUNG SOUNDS ARE COARSE, WITH EXP WHEEZES/ CRACKLES. THROUGHOUT. EF IS 30-35. REAL CATHETER IN PLACE. PATIENT IS CLAMMY, AFEBRILE, NOW HAS TWO IV'S ONE IN THE RIGHT UPPER ARM, AND RIGHT HAND. PER PROVIDER STILL CONTINUE GLUCOPHAGE. BNP ON ADMISSION 437. January COVID -. WILL CONTINUE TO MONITOR UNTIL SHIFT CHANGE.
--- NOTE | 2022-01-12 18:16 | NUR ---
SPOKE WITH ONCOMING RN AT [facility]ARD[facility] ICU ROOM 2 AT [phone]. ONCOMING NURSE HAD COMPLETE UNDERSTANDING AND CONCERN. CNA INSTRUCTOR LEADING EFFORT TO ARRANGE AIR TRANSPORT ONCOMING PHYSICIAN DR. BETHEA (PACKAGING COORDINATOR) REQUESTED SUCH. REACH DENIED DUE TO WEATHER BUT IS TRYING TO OUTSOURCE TO OTHER FACUCILITIES. WILL NEED TO CALL WHEN ETA OF TRANSPORT TO BED CONTROL AT THE SAME NUMBER ABOVE.
--- NOTE | 2022-01-12 19:30 | NUR ---
ASSUMPTION OF CARE CRISTIAN KERNS AND JC RN ASSUMED CARE OF PATIENT AT 1900. REPORT TAKEN FROM PRABHJOT WEST. PATIENT'S VSS. ON BIPAP 20/03 WITH 4L O2 BLEED IN. DENIES SOB/CP. AT BEDSIDE. DISCUSSED PLAN TO TRANSFER VIA REACH HELICOPTER TO [facility] FOR VALVE REPLACEMENT. PATIENT AND AGREE TO PLAN. WILL CONTINUE TO MONITOR FOR CHANGES PRIOR TO TRANSFER.
--- NOTE | 2022-01-12 23:04 | NUR ---
PT TRANSFER ONCE CONFIRMATION THAT PT WAS TO BE TRANFERRED [facility]IA [facility] TO [facility], REPORT GIVEN TO RECIEVING NURSE BRETT AMBROSE. PT TO BE TRANSPORTED TO ICU, ROOM 2. REPORT GIVEN TO BRETT CALVILLO AT BEDSIDE. RAJINDER RN PROVIDED WITH COBRA PACKET. PT'S PROVIDED WITH DIRECTIONS TO HOSPITAL AND PHONE NUMBER TO ICU. THIS RN AND CRISTIANSTUDENT RN ASSISTED IN TRANSPORT OF PT TO HELICOPTER. PT HAS ALL BELONGINGS.
== END 2022-01-12 22:18 | disposition short-term general hospital (02) | DRG 291 ==
LOC: ER 10:59 → MEDS 11:00 → ER 14:37 → EDBEDREQ 17:19 → MEDS 17:39 → PCU 01-12 15:40
PROVIDERS: Emergency Medicine; ADMIT Family Medicine
PROC: 5A09357 Assistance with Respiratory Ventilation, Less than 24 Consecutive Hours, Continuous Positive Airway Pressure (ICD-10-PCS; principal; 2022-01-11)
DX: I11.0 Hypertensive heart disease with heart failure (principal); I50.23 Acute on chronic systolic (congestive) heart failure; Z66 Do not resuscitate; I25.10 Atherosclerotic heart disease of native coronary artery without angina pectoris; E11.9 Type 2 diabetes mellitus without complications; E66.9 Obesity, unspecified; Z20.822 Contact with and (suspected) exposure to COVID-19; E11.51 Type 2 diabetes mellitus with diabetic peripheral angiopathy without gangrene; I65.21 Occlusion and stenosis of right carotid artery; G47.33 Obstructive sleep apnea (adult) (pediatric); F32.A Depression, unspecified; G25.81 Restless legs syndrome; F41.9 Anxiety disorder, unspecified; I08.0 Rheumatic disorders of both mitral and aortic valves; E78.5 Hyperlipidemia, unspecified; Z68.35 Body mass index [BMI] 35.0-35.9, adult; Z87.891 Personal history of nicotine dependence; Z90.49 Acquired absence of other specified parts of digestive tract; Z98.890 Other specified postprocedural states; Z88.2 Allergy status to sulfonamides; Z88.8 Allergy status to other drugs, medicaments and biological substances; Z79.4 Long term (current) use of insulin; Z79.82 Long term (current) use of aspirin; Z79.899 Other long term (current) drug therapy
CPT/HCPCS: 0241U; 36415; 51702; 71045; 80053; 80069; 81001; 82803; 82947; 83036; 83735; 83880; 84145; 84484; 85025; 87086; 93005; 93010; 94640; 94644; 94645; 94660; 94664; 94762; 96361; 96372; 96374; 96375; 96376; 99285-25; A9270; G0378; J1650; J1815; J1940; J2405; J2930; J7030

== ENCOUNTER 2023-02-20 19:47 | Inpatient (IN) | payer OTHER, MEDICARE ==
[~2023-02-20] VITALS: Ht 160 cm; Wt 92.7 kg
[~2023-02-20 19:47] MED LIST changes: +ALBU90OI INH; +ASPI81CH PO; +ENALAPRIL MALEA10 M2 PO; +KLOR-CON 1010 ME1 PO; +MIRAPEX0.125 MG PO; +PRED20 PO; +TRULICITY3 MG/0.5 M SC
[2023-02-20 21:11] LABS: BASOPHILS ABSOLUTE AUTO 0.06 K/mm3 (0.00-0.23); BASOPHILS PERCENT AUTO 0 % (0-2); EOSINOPHILS ABSOLUTE AUTO 0.31 K/mm3 (0.00-0.68); EOSINOPHILS PERCENT AUTO 2 % (0-6); Hematocrit 49.5 % (33.0-51.0); Hemoglobin 15.6 g/dL (11.5-16.0); IMMATURE GRAN ABSOLUTE AUTO 0.16 K/mm3 (0.00-0.10); IMMATURE GRAN PERCENT AUTO 1 % (0-1); LYMPHOCYTES ABSOLUTE AUTO 3.35 K/mm3 (0.84-5.20); LYMPHOCYTES PERCENT AUTO 25 % (21-46); MONOCYTES PERCENT AUTO 6 % (4-13); Mean Corpuscular HGB 29.8 pg (26.0-34.0); Mean Corpuscular HGB Conc 31.5 g/dL (31.5-36.5); Mean Corpuscular Volume 95 fL (80-100); Mean Platelet Volume 11.1 fL (9.1-12.4); NEUTROPHILS PERCENT AUTO 65 % (41-73); Platelet Count 205 K/mm3 (150-400); RDW Coefficient Variation 14.6 % (11.7-14.2); RDW Standard Deviation 50.7 fL (35.1-46.3); Red Blood Cell Count 5.24 M/mm3 (3.80-5.20); White Blood Cell Count 13.48 K/mm3 (4.00-11.30)
[2023-02-20 21:20] LABS: Calcium, Ionized (POC) 1.24 mmol/L (1.10-1.46); Chloride (POC) 103 mmol/L (98-108); Creatinine (POC) 1.2 mg/dL (0.6-1.0); Glucose (ISTAT POC) 237 mg/dL (70-99); Hemoglobin (POC) 15.3 g/dL (12.0-16.0); Potassium (POC) 4.6 mmol/L (3.5-5.5); Sodium (POC) 139 mmol/L (135-148); Total CO2 (POC) 28 mmol/L (21-32)
[2023-02-20 21:23] LABS: Alanine Aminotransfer (ALT/SGP 47 U/L (12-78); Albumin, Blood 3.6 g/dL (3.4-5.0); Alk Phos 196 U/L (50-136); Anion Gap 7 mmol/L (6-16); Aspartate Aminotrans (AST/SGOT 33 U/L (12-37); Bilirubin, Total 0.4 mg/dL (0.1-1.0); Blood Urea Nitrogen 27 mg/dL (8-24); CO2, Blood 27 mmol/L (21-32); Calcium, Blood 9.6 mg/dL (8.5-10.1); Chloride, Blood 108 mmol/L (98-108); Creatinine, Blood 1.04 mg/dL (0.40-1.00); Globulin, Blood 3.6 g/dL (2.2-4.0); Glomerular Filtration Rate 56 (60-); Glucose, Blood 214 mg/dL (70-99); Potassium, Blood 4.7 mmol/L (3.5-5.5); Sodium, Blood 142 mmol/L (136-145); Total Protein, Blood 7.2 g/dL (6.4-8.2)
[2023-02-20 21:23] LABS: Base Excess Venous 2.7 mmol/L; Bicarbonate Venous 24.6 mmol/L (24.0-30.0); PCO2 Venous 61.1 mmHg (38-42); pH Blood Venous 7.29 (7.34-7.37)
[2023-02-20 22:37] LABS: Ethanol (Alcohol), Blood, Med <3 mg/dL
[2023-02-21] VITALS (11 sets, daily range): BP systolic 82–160; BP diastolic 55–85
[2023-02-21 00:25] LABS: International Normalized Ratio 1.07; Prothrombin Time Results 11.2 Sec (9.7-11.5)
--- NOTE | 2023-02-21 02:30 | NUR ---
HOSPITALIST NOTIFIED STUDY ABROAD ADVISOR REPORTED ST ELEVATION, PT REPORTING CP 3/10 BUT SHE WAS UNSURE IF IT WAS THE RIB PAIN RADIATING TO THE FRONT, STAT EKG WAS DONE, 1 TAB PO NITRO GIVEN, EKG RESULTS REPORTED TO , NO SIGNIFICANT CHANGES NOTED, NO FURTHER ORDERS GIVEN. PT'S PAIN ELEVATED TO A 5/10, RELIEVED BY 1 NITRO TAB, WCTM AT THIS TIME, CHARGE NURSE NOTIFIED. CALL LIGHT IN REACH
--- NOTE | 2023-02-21 02:46 | NUR ---
TELE/CHEST PAIN PER PRIMARY NURSE ANTONIO Yates, PT REPORTS 2-11/13 CP & STATES SHE NORMALLY TAKES NITRO @HOME. TELE REPORTS SINCE [address] ELEVATION SINCE TELE WAS PLACED, OTHERWISE NSR HR 91. INFORMED DR CARROLL OF CP & ST ELEVATION. HE ORDERED REPEAT EKG & NITRO.
[2023-02-21 05:02] LABS: BASOPHILS ABSOLUTE AUTO 0.05 K/mm3 (0.00-0.23); BASOPHILS PERCENT AUTO 0 % (0-2); EOSINOPHILS ABSOLUTE AUTO 0.01 K/mm3 (0.00-0.68); EOSINOPHILS PERCENT AUTO 0 % (0-6); Hematocrit 42.3 % (33.0-51.0); Hemoglobin 13.5 g/dL (11.5-16.0); IMMATURE GRAN PERCENT AUTO 1 % (0-1); LYMPHOCYTES PERCENT AUTO 11 % (21-46); MONOCYTES PERCENT AUTO 8 % (4-13); Mean Corpuscular HGB 30.3 pg (26.0-34.0); Mean Corpuscular HGB Conc 31.9 g/dL (31.5-36.5); Mean Corpuscular Volume 95 fL (80-100); Mean Platelet Volume 10.7 fL (9.1-12.4); NEUTROPHILS ABSOLUTE AUTO 12.14 K/mm3 (1.96-9.15); NEUTROPHILS PERCENT AUTO 80 % (41-73); Platelet Count 155 K/mm3 (150-400); RDW Coefficient Variation 14.6 % (11.7-14.2); RDW Standard Deviation 51.6 fL (35.1-46.3); Red Blood Cell Count 4.46 M/mm3 (3.80-5.20)
[2023-02-21 05:43] LABS: Albumin, Blood 3.2 g/dL (3.4-5.0); Albumin/Globulin Ratio 1.1 (0.8-1.8); Bilirubin, Total 0.4 mg/dL (0.1-1.0); Bun/Creatinine Ratio 25.4 (12.0-20.0); Calcium, Blood 9.2 mg/dL (8.5-10.1); Creatinine, Blood 1.38 mg/dL (0.40-1.00); Potassium, Blood 5.1 mmol/L (3.5-5.5); Total Protein, Blood 6.2 g/dL (6.4-8.2)
--- NOTE | 2023-02-21 07:26 | NUR ---
SHIFT SUMMARY PT REMAINS A&O X4, ON 2L O2 VIA NC, SPO2 >95%, LUNG SOUNDS UNCHANGED FROM INITIAL ASSESSMENT, BRUISING TO THE BACK HAS DARKENED BUT HAS NOT GROWN PAST TRACED BORDERS, FIRM TO TOUCH, SWELLING HAS INCREASED SIGNIFICANTLY, REPORT GIVEN AT BEDSIDE WITH DAY RN, SWELLING/BRUISING SHOWN, PAIN MANAGED PER EMAR PRN WITH IV MORPHINE, PLEASE SEE NOTE REGARDING EKG/CP, PT HAS DENIED CP/PRESSURE SINCE, VSS, NPO, CALL LIGHT IN REACH
[2023-02-21 08:54] LABS: BASOPHILS ABSOLUTE AUTO 0.05 K/mm3 (0.00-0.23); BASOPHILS PERCENT AUTO 0 % (0-2); EOSINOPHILS ABSOLUTE AUTO 0.03 K/mm3 (0.00-0.68); EOSINOPHILS PERCENT AUTO 0 % (0-6); Hematocrit 42.2 % (33.0-51.0); Hemoglobin 13.4 g/dL (11.5-16.0); IMMATURE GRAN ABSOLUTE AUTO 0.06 K/mm3 (0.00-0.10); IMMATURE GRAN PERCENT AUTO 1 % (0-1); LYMPHOCYTES ABSOLUTE AUTO 1.79 K/mm3 (0.84-5.20); LYMPHOCYTES PERCENT AUTO 14 % (21-46); MONOCYTES ABSOLUTE AUTO 1.12 K/mm3 (0.16-1.47); MONOCYTES PERCENT AUTO 9 % (4-13); Mean Corpuscular HGB 29.8 pg (26.0-34.0); Mean Corpuscular HGB Conc 31.8 g/dL (31.5-36.5); Mean Corpuscular Volume 94 fL (80-100); Mean Platelet Volume 10.8 fL (9.1-12.4); NEUTROPHILS ABSOLUTE AUTO 9.81 K/mm3 (1.96-9.15); NEUTROPHILS PERCENT AUTO 76 % (41-73); Platelet Count 158 K/mm3 (150-400); RDW Coefficient Variation 14.7 % (11.7-14.2); RDW Standard Deviation 51.1 fL (35.1-46.3); Red Blood Cell Count 4.49 M/mm3 (3.80-5.20); White Blood Cell Count 12.86 K/mm3 (4.00-11.30)
[2023-02-21 10:32] LABS: Source, Urine Clean Catch
[2023-02-21 10:39] LABS: Appearance, Urine Hazy (Clear); Bilirubin, Urine Neg (Neg); Blood, Urine Neg (Neg); Color, Urine Yellow (P-Yellow); Glucose Qualitative, Urine 4+ (Neg); Ketones, Urine Neg (Neg); Leukocyte Esterase, Urine 3+ (Neg); Nitrite, Urine Neg (Neg); Protein, Urine Neg (Neg); Urobilinogen, Urine NORM (Normal)
[2023-02-21 10:48] LABS: Bacteria Many /hpf; Squamous Epithelial Cells Mod /hpf (Few); White Blood Cells, Urine 25-50 /hpf (0-5)
[2023-02-21 10:50] LABS: Red Blood Cells, Urine 0-2 /hpf (0-2); Transitional Epithelial Cells Rare /hpf (0-Rare); Yeast/Fungi Urine Rare /hpf
--- NOTE | 2023-02-21 15:05 | NUR ---
SHIFT SUMMARY: LEFT SIDE RIB FX PATIENT IS A&OX4. PATIENT IS ON 2L NC WITH >90% OXYGEN SATS. VS OTHERWISE ARE WNL. PAIN IS MANAGED WITH PO PERCOCET AT THIS TIME. PATIENT HAS A BRUISE ON HER LEFT SIDE WITH IT OUTLINED IN MARKER BUT NO INCREASE IN BRUISING SINCE THIS MORNING. PATIENT ALSO HAS SWELLING ABOVE THE BRUISE BUT AFTER ANOTHER CHEST X-RAY IT SHOWED SWELLING OF TISSUE NO INTERNAL BLEEDING NOTED. PATIENT DENIES SOB OR CHEST PAIN THROUGHOUT SHIFT. SHE IS A SBA TO THE [id number]. SHE IS TOLERATING PO INTAKE AND IS VOIDING. SHE IS LAYING IN BED WITH AT BEDSIDE AND CALL LIGHT IN REACH.
--- NOTE | 2023-02-21 21:32 | NUR ---
CALL TO HOSPITALIST INFORMED DR STORY OF PT ST ELEVATION INCREASE PER DATA WAREHOUSE SPECIALIST. PT REPORTS NO CHEST PAIN OR SOB. VITALS STABLE. V/O FOR REPEAT EKG. WILL CONTINUE TO MONITOR FOR CHANGES.
--- NOTE | 2023-02-22 01:08 | NUR ---
CALL TO HOSPITALIST CALL PLACED TO HOSPITALIST TO INFORM OF ST ELEVATIONS, INCREASE IN TROPONIN, AND RECENT EKG. PER DR. BREANNA GARCÍA TO ORDER REPEAT TROPONIN LABS.
[2023-02-22 01:49] LABS: Albumin, Blood 3.2 g/dL (3.4-5.0); Bilirubin, Total 0.6 mg/dL (0.1-1.0); Bun/Creatinine Ratio 30.5 (12.0-20.0); Calcium, Blood 8.9 mg/dL (8.5-10.1); Creatinine, Blood 1.05 mg/dL (0.40-1.00); Globulin, Blood 3.2 g/dL (2.2-4.0); Potassium, Blood 4.7 mmol/L (3.5-5.5); Total Protein, Blood 6.4 g/dL (6.4-8.2)
[2023-02-22 01:58] LABS: BASOPHILS ABSOLUTE AUTO 0.03 K/mm3 (0.00-0.23); BASOPHILS PERCENT AUTO 0 % (0-2); EOSINOPHILS ABSOLUTE AUTO 0.11 K/mm3 (0.00-0.68); EOSINOPHILS PERCENT AUTO 1 % (0-6); Hematocrit 39.5 % (33.0-51.0); Hemoglobin 12.9 g/dL (11.5-16.0); IMMATURE GRAN ABSOLUTE AUTO 0.15 K/mm3 (0.00-0.10); IMMATURE GRAN PERCENT AUTO 1 % (0-1); LYMPHOCYTES ABSOLUTE AUTO 1.82 K/mm3 (0.84-5.20); LYMPHOCYTES PERCENT AUTO 14 % (21-46); MONOCYTES ABSOLUTE AUTO 1.12 K/mm3 (0.16-1.47); MONOCYTES PERCENT AUTO 8 % (4-13); Mean Corpuscular HGB 30.3 pg (26.0-34.0); Mean Corpuscular HGB Conc 32.7 g/dL (31.5-36.5); Mean Corpuscular Volume 93 fL (80-100); Mean Platelet Volume 10.7 fL (9.1-12.4); NEUTROPHILS ABSOLUTE AUTO 10.11 K/mm3 (1.96-9.15); NEUTROPHILS PERCENT AUTO 76 % (41-73); Platelet Count 152 K/mm3 (150-400); RDW Coefficient Variation 14.9 % (11.7-14.2); RDW Standard Deviation 50.9 fL (35.1-46.3); Red Blood Cell Count 4.26 M/mm3 (3.80-5.20); White Blood Cell Count 13.34 K/mm3 (4.00-11.30)
[2023-02-22 05:32] VITALS: BP 147/74
--- NOTE | 2023-02-22 06:11 | NUR ---
SHIFT SUMMARY PT ADMIT FOR L SIDE RIB FX W/ SWELLING, BRUISING, AND LUMP TO SOFT TISSURE ON LEFT. PT ON 2L O2 NC, NO CURRENT HOME O2. HX OF CARDIAC VALVE REPLACEMENTS AND STENTS. TELE IN PLACE /. PER SENIOR TAX MANAGER ST ELEVATION INCREASED T/O NIGHT. PCP NOTIFIED, V/O FOR REPEAT EKG, TROPONIN W/ INCREASED RESULTS. PT DENIES CP, SOB, N/V, N/T OTHER THAN LEFT FLANK PAIN R/T FALL/ RIB FX. PT MEDICATED W/ NITRO X1 PRIOR TO PAIN MEDS W/ NO RELIEF. MINIMAL RELIEF FROM PERCOCET 5MG, THEN SUPPLEMENTED W/ 0.5MG DILAUDID W/ SHORT TERM RELIEF, FOLLOWED BY NEXT ADMIN OF 2-5MG PERCOCET W/ MOST RELIEF. PT REPORTS THIS MORNING FEELING "MUCH BETTER" SBA TO BATHROOM, UP TO CHAIR THIS MORNING, USING INCENTIVE SPIR. PLANS FOR POSS DC TODAY.
[2023-02-22 07:16] VITALS: BP 134/78
[2023-02-22] MEDS ORDERED: AMOCLA875 PO (12:15)
[2023-02-22] MEDS ORDERED: NAPR500 PO (12:16)
[2023-02-22] MEDS ORDERED: Percocet 5-3251 EACH PO (12:17)
--- NOTE | 2023-02-22 14:57 | NUR ---
AMBULATING DOWN THE BURNETT W/ RT FOR HOME O2 EVAL.
[2023-02-22 15:25] VITALS: BP 102/74
--- NOTE | 2023-02-22 15:48 | NUR ---
DC'D HOME,DC INSTRUCTIONS GIVEN BY BRETT COLEY, PT DC'D WITH MIGDALIA SIDDIQUIC WILL BE DELIVERED TO PT'S HOME.
--- NOTE | 2023-02-22 16:00 | NUR ---
DISCHARGE NOTE: PATIENT AND WERE EDUCATED ON DISCHARGE INSTRUCTIONS. BOTH VERBALIZED UNDERSTANDING OF INSTRUCTIONS AND HAD NO FURTHER QUESTIONS AT THIS TIME. DR. BAILON IS SENDING PATIENTS HARD PERSCRIPTIONS TO [facility]. IV WAS TAKEN OUT AND WNL. PAIN IS MANAGED WITH ORAL PAIN MEDS. PATIENT HAS HER PERSONAL FWW WITH HER. PATIENT IS ON RA WITH >90% OXYGEN SATS AND DENIES SOB OR CHEST PAIN. OTHER VS ARE WNL. SHE IS TOLERATING PO INTAKE AND IS VOIDING. ENCOURAGED PATIENT TO USE INCENTIVE SPIROMETER AT HOME OFTEN. SHE IS DRESSED AND HAS PERSONAL ITEMS IN THE ROOM GATHERED. SHE IS BEING WHEELCHAIRED OUT TO HER HUSBANDS CAR TO BE TAKEN HOME.
== END 2023-02-22 16:03 | disposition home or self-care (01) | DRG 183 ==
LOC: ER 19:47 → SURS 23:48
PROVIDERS: Emergency Medicine; Family Medicine; ADMIT Internal Medicine
DX: S22.42XA Multiple fractures of ribs, left side, initial encounter for closed fracture (principal); J96.01 Acute respiratory failure with hypoxia; E87.29 Other acidosis; I13.0 Hypertensive heart and chronic kidney disease with heart failure and stage 1 through stage 4 chronic kidney disease, or unspecified chronic kidney disease; I50.20 Unspecified systolic (congestive) heart failure; E66.9 Obesity, unspecified; Z51.5 Encounter for palliative care; Z66 Do not resuscitate; E11.22 Type 2 diabetes mellitus with diabetic chronic kidney disease; E11.65 Type 2 diabetes mellitus with hyperglycemia; G25.81 Restless legs syndrome; F41.9 Anxiety disorder, unspecified; J44.9 Chronic obstructive pulmonary disease, unspecified; N18.30 Chronic kidney disease, stage 3 unspecified; I25.10 Atherosclerotic heart disease of native coronary artery without angina pectoris; M54.50 Low back pain, unspecified; G89.29 Other chronic pain; G47.33 Obstructive sleep apnea (adult) (pediatric); K21.9 Gastro-esophageal reflux disease without esophagitis; I35.0 Nonrheumatic aortic (valve) stenosis; K75.81 Nonalcoholic steatohepatitis (NASH); W01.0XXA Fall on same level from slipping, tripping and stumbling without subsequent striking against object, initial encounter; Y92.009 Unspecified place in unspecified non-institutional (private) residence as the place of occurrence of the external cause; D72.829 Elevated white blood cell count, unspecified; Z88.2 Allergy status to sulfonamides; Z88.8 Allergy status to other drugs, medicaments and biological substances; Z79.82 Long term (current) use of aspirin; Z79.899 Other long term (current) drug therapy; Z79.4 Long term (current) use of insulin; Z79.51 Long term (current) use of inhaled steroids; Z95.5 Presence of coronary angioplasty implant and graft; Z90.49 Acquired absence of other specified parts of digestive tract; Z98.890 Other specified postprocedural states; Z99.81 Dependence on supplemental oxygen; Z68.35 Body mass index [BMI] 35.0-35.9, adult
CPT/HCPCS: 36415; 71045; 71046; 71260; 80047; 80053; 81001; 82803; 82947; 83036; 83880; 84145; 84484; 85014; 85025; 85610; 87086; 93005; 93010; 94760; 94761; 96374-59; 96375; 96376; 97116; 97161; 97166; 97530; 97535; 99285-25; A9270; C9113; G0480; J1170; J1815; J1885; J2270; Q9967

== ENCOUNTER 2023-02-26 10:35 | Inpatient (IN) | payer MEDICARE ==
[~2023-02-26] VITALS: Ht 170.2 cm; Wt 98.7 kg
[2023-02-26] VITALS (9 sets, daily range): BP systolic 67–111; BP diastolic 36–99
[~2023-02-26 10:35] MED LIST changes: -INSULANI; +INSULANI SC; +MAGNESIUM COMP300 MG PO; -MAGONATE54 MG/5 ML PO; +NAPR500 PO; +Percocet 5-3251 EACH PO
[2023-02-26 11:25] LABS: Hematocrit 32.3 % (33.0-51.0); Hemoglobin 10.4 g/dL (11.5-16.0); Mean Corpuscular HGB 29.7 pg (26.0-34.0); Mean Corpuscular HGB Conc 32.2 g/dL (31.5-36.5); Mean Corpuscular Volume 92 fL (80-100); Mean Platelet Volume 10.5 fL (9.1-12.4); NRBC ABSOLUTE 0.04 K/mm3 (0.00-0.02); NRBC Auto 0.3 /100 WBC (0.0-0.2); Platelet Count 218 K/mm3 (150-400); RDW Coefficient Variation 15.9 % (11.7-14.2); White Blood Cell Count 14.95 K/mm3 (4.00-11.30)
[2023-02-26 11:49] LABS: Albumin, Blood 2.1 g/dL (3.4-5.0); Albumin/Globulin Ratio 0.5 (0.8-1.8); Bilirubin, Total 1.4 mg/dL (0.1-1.0); Bun/Creatinine Ratio 40.6 (12.0-20.0); Calcium, Blood 8.5 mg/dL (8.5-10.1); Creatinine, Blood 1.8 mg/dL (0.40-1.00); Magnesium, Blood 2.9 mg/dL (1.6-2.4); Total Protein, Blood 6.1 g/dL (6.4-8.2)
[2023-02-26 11:51] LABS: BAND PERCENT MAN 20 % (0-8); BASOPHILS ABSOLUTE MAN 0.14 K/mm3 (0.00-0.23); BASOPHILS PERCENT MAN 1 % (0-2); EOSINOPHILS ABSOLUTE MAN 0.14 K/mm3 (0.00-0.68); EOSINOPHILS PERCENT MAN 1 % (0-6); LYMPHOCYTES ABSOLUTE MAN 1.49 K/mm3 (0.84-5.20); LYMPHOCYTES PERCENT MAN 10 % (21-46); MONOCYTES ABSOLUTE MAN 1.04 K/mm3 (0.16-1.47); MONOCYTES PERCENT MAN 7 % (4-13); SEG NEUTROPHILS PERCENT MAN 61 % (41-73); TOTAL CELLS COUNTED 100
[2023-02-26 22:24] LABS: PCO2 Arterial 45.2 mmHg (35-45); PO2 Arterial 64.3 mmHg (80-100)
[2023-02-26 22:25] LABS: pH Blood Arterial 7.25 (7.35-7.45)
[2023-02-26 22:44] LABS: pH Blood Venous 7.29 (7.34-7.37)
[2023-02-26 22:45] LABS: Base Excess Venous -8.7 mmol/L; PCO2 Venous 36.9 mmHg (38-42)
[2023-02-26] MEDS ORDERED: ENAL10 PO (22:59)
[2023-02-27] VITALS (63 sets, daily range): BP systolic 57–164; BP diastolic 39–135
--- NOTE | 2023-02-27 00:23 | NUR ---
PT ARRIVED ON UNIT AROUND 2124. REPORT RECEIVED AT BEDSIDE. PT VERY LETHARGIC AND DROWSY. OREINTED TO SELF ONLY. ACCORDING TO PATIENTS AT BEDSIDE PATIENT IS NORMALLY ALERT, ORIENTED, AND INDEPENDENT AND DRIVING. STATED SHE HAD BEEN INSTRUCTED TO STOP WEARING HER CPAP THE LAST SEVERAL DAYS DUE TO HER LUNGS AND SHE GRADUALY HAS BECOME MORE CONFUSED, WEAK, AND LETHARGIC OVER THE PAST 3 DAYS. PT VERY DIAPHORETIC REQURING A WHOLE BED CHANGE, BUT COLD TO THE TOUCH, BG OBTAINED OF 261. REDNESS UNDER R BREAST NOTED, BLANCHABLE REDNESS ON COCCYX, AND A LARGE ABDOMINAL HEMATOMA NOTED ON L SIDE EXTENDING ONTO HER BACK. PT UNABLE TO KEEP EYES OPEN AND FINISH STATEMENTS. PT ON OXYGEN 5L NC. BP 84/60, HR 130. NO TELEMETRY ORDERED. PT ALREADY RECEIVED 2L VIA BOLUSES IN THE ED AND MAINTENANCE FLUIDS AT 100ML/HR WITH A HISTORY OF CHF. NOTIFIED JENNIFER ADAMS OF CONCERNS FOR LOW BP WITH POSSIBLE FLUID OVERLOAD, MENTAL STATUS IS A DRASTIC CHANGE FROM BASELINE AND REQUESTED AN ABG, PT HAVING HIGH HR WITH NO TELEMETRY ORDERED. ORDERS OBTAINED TO TRANSFER PT TO ICU, STAT ABG, STAT LACTIC ACID, AND TO START LEVOPHED FOR A GOAL MAP OF 65. DR. NESBITT EVALUATED PATIENT AT BEDSIDE. SBP REMAINS IN LOW 80'S WITH NO IMPROVEMENT. DR. NESBITT ALSO ORDERED A CHEST XRAY AND INSTRUCTED TO STOP MAINTENANCE IVF. IVF STOPPED, CHEST XRAY, ABG AND LACTIC ACID COLLECTED PRIOR TO PATIENT TRANSFER. BP 80/51 PRIOR TO TRANSFERRING PATIENT, REPORT CALLED. CRITICAL LAB OF PH 7.[address] NESBITT NOTIFIED.
[2023-02-27 02:03] LABS: Hematocrit 29.5 % (33.0-51.0); Hemoglobin 9.4 g/dL (11.5-16.0); Mean Corpuscular HGB 30.3 pg (26.0-34.0); Mean Corpuscular HGB Conc 31.9 g/dL (31.5-36.5); Mean Corpuscular Volume 95 fL (80-100); Mean Platelet Volume 10.4 fL (9.1-12.4); NRBC ABSOLUTE 0.05 K/mm3 (0.00-0.02); NRBC Auto 0.3 /100 WBC (0.0-0.2); Platelet Count 208 K/mm3 (150-400); RDW Coefficient Variation 16.2 % (11.7-14.2); RDW Standard Deviation 56.4 fL (35.1-46.3); White Blood Cell Count 15.23 K/mm3 (4.00-11.30)
[2023-02-27 02:25] LABS: BAND PERCENT MAN 5 % (0-8); BASOPHILS PERCENT MAN 0 % (0-2); EOSINOPHILS PERCENT MAN 0 % (0-6); LYMPHOCYTES ABSOLUTE MAN 1.82 K/mm3 (0.84-5.20); LYMPHOCYTES PERCENT MAN 12 % (21-46); METAMYELOCYTE ABSOLUTE MAN 0.15 K/mm3 (0.00-0.00); METAMYELOCYTE PERCENT MAN 1 % (0-0); MONOCYTES ABSOLUTE MAN 1.67 K/mm3 (0.16-1.47); MONOCYTES PERCENT MAN 11 % (4-13); NEUTROPHILS ABSOLUTE MAN 11.57 K/mm3 (1.96-9.15); SEG NEUTROPHILS PERCENT MAN 71 % (41-73); TOTAL CELLS COUNTED 100
--- NOTE | 2023-02-27 06:33 | NUR ---
PATIENT ARRIVED FROM MEDICAL FLOOR AT 2235. PATIENT IS DROWSY BUT A&O X4. AT BEDSIDE. PATIENT ON 5L NC SWITCHED TO 7L SIMPLE MASK OVER NIGHT D/T MOUTH BREATHING. LEVO STARTED D/T HYPOTENSION, MAP GOAL >65. PATIENT WITH VERY LARGE HEMATOMA/BRUISING TO ABD AND BACK ON LEFT SIDE. MORPHINE FOR PAIN NEEDED Q2.
[2023-02-27 08:27] LABS: Albumin, Blood 1.8 g/dL (3.4-5.0); Albumin/Globulin Ratio 0.4 (0.8-1.8); Bilirubin, Total 0.8 mg/dL (0.1-1.0); Bun/Creatinine Ratio 40.2 (12.0-20.0); Calcium, Blood 7.9 mg/dL (8.5-10.1); Creatinine, Blood 1.64 mg/dL (0.40-1.00); Globulin, Blood 4.3 g/dL (2.2-4.0); Potassium, Blood 4.7 mmol/L (3.5-5.5); Total Protein, Blood 6.1 g/dL (6.4-8.2)
--- NOTE | 2023-02-27 10:26 | NUR ---
ASSUMED CARE OF FREDDIE AT 0700 FROM DANI AT BEDSIDE REPORT. FREDDIE HAS BEEN A/O AND ABLE COMMUNICATE HER NEEDS ADEQUATELY. SHE IS ON OXYMIZER @ 6L SO SHE CAN DRINK HER FLUIDS. SHE IS COMPLAINING OF INABILITY TO VOID. PUREWICK IS IN PLACE, NO URINE OUT SINCE NOC SHIFT. RETURN IS TEA COLORED. PT IS ENCOURAGED TO DRINK FLUIDS. SHE IS TAUGHT THE INCENTIVE SPIROMETER AND ENCOURAGED TO SLOW HER BREATHING AND TAUGHT ABOUT LUNG INFLATION AND NECESSITY FOR CLEARING PNEU- MONIA.
[2023-02-27 16:05] LABS: Hematocrit 28.6 % (33.0-51.0)
[2023-02-27 18:16] LABS: Source, Urine Foley catheter
[2023-02-27 18:20] LABS: Appearance, Urine Hazy (Clear); Bilirubin, Urine Neg (Neg); Blood, Urine Neg (Neg); Color, Urine Amber (P-Yellow); Glucose Qualitative, Urine 4+ (Neg); Ketones, Urine Neg (Neg); Leukocyte Esterase, Urine 1+ (Neg); Nitrite, Urine Neg (Neg); Protein, Urine 2+ (Neg); Urobilinogen, Urine NORM (Normal)
[2023-02-27 18:30] LABS: Bacteria Mod /hpf; Hyaline Casts 0-2 /lpf (0-2); Red Blood Cells, Urine 0-2 /hpf (0-2); Squamous Epithelial Cells Few /hpf (Few)
[2023-02-27 18:31] LABS: Amorphous Light (0-Heavy); Renal Epithelial Rare /hpf (0-Rare); Transitional Epithelial Cells Mod /hpf (0-Rare)
--- NOTE | 2023-02-27 18:37 | NUR ---
FREDDIE HAS CONTINUED TO HAVE LABORED BREATHING WITH COARSE BREATH SOUNDS. SHE IS UNABLE TO TAKE A FULL BREATH IT CAUSES HER PAIN. SHE HAS A WEAK COUGH WITH MINIMAL TO SCANT RETURN, WITH CLAIMS "I CAN'T GET ANYTHING UP!" PUREWICK HAS BEEN IN PLACE ALL DAY AND FREDDIE HAS SAID SHE HAS FELT LIKE SHE CANNOT URINATE. WAS IN TO ROUND ON HER AND AGREED TO BLADDER SCAN AND REAL IF NECESSARY. PT WAS SCANNED, THE TWO IMAGES REPORTED ZERO. STRAIGHT CATH WITH 700 RETURN, REAL CATHETER IS NOW IN PLACE. MORE ACCURATE I/O'S FOR HER. HER NOREPINEPHRINE IS CURRENTLY ON SB. HER MAP IS 73. SHE IS ON OXYMIZER WHILE VISITING WITH HER . SATS 99%. PT WITH NO APPETITE, ENCOURAGEMENT GIVEN. IV FLUIDS CONTINUE @ 150ML/HR.
--- NOTE | 2023-02-27 22:32 | NUR ---
ASSUMED CARE ASSUMED CARE AT 1900. PT A/O X 4, ANSWERING QUESTIONS APPROPRIATELY. RESTLESS IN BED, SWINGING LEGS OVER SIDE RAIL. FORGETFUL, NEEDS FREQUENT DIRECTION. LEVOPHED ON SB SINCE DAYSHIFT. NS AT 150ML/HR. DR JACKSON AT BEDSIDE AND ORDERED FLUIDS TO BE DECREASED TO 40ML/HR. VSS. MAP GREATER THEN 65. ON CPAP 14/8 3L. PT C/O PAIN IN RIBS. CALL TO HOSP AND PAIN MEDICATION SWITCHED FROM IV TO PO D/T PT BECOMING VERY NAUSEOUS WITH MORPHINE. PT TOLERATED PO MEDICATIONS WELL. PT CONTINUED TO C/O OF PAIN. HOSP CALLED AND ORDERS RECEIVED. REAL PATENT AND DRAINING TO GRAVITY. TEA COLORED. BED ALARM ON AND CALL LIGHT IN REACH.
[2023-02-28] VITALS (45 sets, daily range): BP systolic 92–157; BP diastolic 51–103
--- NOTE | 2023-02-28 02:25 | NUR ---
UPDATE PT VERY RESTLESS IN BED, PULLING OF CPAP AND YELLING "HELP ME". PT ABLE TO CORRECTLY ANSWER ORIENTATION QUESTIONS, BUT SHE HAD TO BE ASKED SEVERAL TIMES SHE WOULD FORGET THE QUESTION. WHEN PT ASKED IF SHE WAS IN PAIN, SHE STATED YES AND IT WAS "PRESSURE ON MY CHEST". EKG DONE. HOSP CALLED. ORDER TO D/C PO PAIN MEDS.
[2023-02-28 04:20] LABS: Hematocrit 28.1 % (33.0-51.0); Hemoglobin 8.7 g/dL (11.5-16.0); Mean Corpuscular HGB 29.6 pg (26.0-34.0); Mean Corpuscular Volume 96 fL (80-100); Mean Platelet Volume 10.5 fL (9.1-12.4); NRBC ABSOLUTE 0.04 K/mm3 (0.00-0.02); NRBC Auto 0.2 /100 WBC (0.0-0.2); Platelet Count 214 K/mm3 (150-400); RDW Coefficient Variation 16.2 % (11.7-14.2); RDW Standard Deviation 56.7 fL (35.1-46.3); Red Blood Cell Count 2.94 M/mm3 (3.80-5.20); White Blood Cell Count 18.32 K/mm3 (4.00-11.30)
[2023-02-28 05:06] LABS: Albumin, Blood 2.5 g/dL (3.4-5.0); Anion Gap 11 mmol/L (6-16); Blood Urea Nitrogen 87 mg/dL (8-24); Bun/Creatinine Ratio 46.5 (12.0-20.0); CO2, Blood 18 mmol/L (21-32); Calcium, Blood 8.6 mg/dL (8.5-10.1); Chloride, Blood 103 mmol/L (98-108); Creatinine, Blood 1.87 mg/dL (0.40-1.00); Glomerular Filtration Rate 28 (60-); Glucose, Blood 211 mg/dL (70-99); Phosphorus, Blood 5.4 mg/dL (2.5-4.9); Potassium, Blood 4.7 mmol/L (3.5-5.5); Sodium, Blood 132 mmol/L (136-145)
[2023-02-28 05:43] LABS: BAND PERCENT MAN 6 % (0-8); BASOPHILS PERCENT MAN 0 % (0-2); EOSINOPHILS PERCENT MAN 0 % (0-6); LYMPHOCYTES ABSOLUTE MAN 1.09 K/mm3 (0.84-5.20); LYMPHOCYTES PERCENT MAN 6 % (21-46); METAMYELOCYTE ABSOLUTE MAN 0.91 K/mm3 (0.00-0.00); METAMYELOCYTE PERCENT MAN 5 % (0-0); MONOCYTES ABSOLUTE MAN 0.18 K/mm3 (0.16-1.47); MONOCYTES PERCENT MAN 1 % (4-13); MYELOCYTE ABSOLUTE MAN 0.18 K/mm3 (0.00-0.00); MYELOCYTE PERCENT MAN 1 % (0-0); NEUTROPHILS ABSOLUTE MAN 15.75 K/mm3 (1.96-9.15); PROMYELOCYTE ABSOLUTE MAN 0.18 K/mm3 (0.00-0.00); PROMYELOCYTE PERCENT MAN 1 % (0-0); SEG NEUTROPHILS PERCENT MAN 80 % (41-73); TOTAL CELLS COUNTED 100
--- NOTE | 2023-02-28 06:04 | NUR ---
SHIFT SUMMARY NO ACUTE EVENTS T/O NIGHT. PT C/O OF PAIN IN RIBS/ABD/CHEST T/O NIGHT AND MEDICATED PER EMAR. VSS. PT WORE CPAP MOST OF THE NIGHT. PT ABLE TO COUGH UP THICK YELLOW SPUTUM. LUNG SOUNDS REMAIN VERY COARSE. REAL PATENT AND DRAINING TO GRAVITY. NO BM THIS SHIFT. WILL REPORT OFF TO ONCOMING NURSE.
--- NOTE | 2023-02-28 15:13 | NUR ---
FREDDIE HAD AN EPISODE OF EMESIS, QUITE LARGE AMOUNT, VOLATILE WHILE WEARIG THE CPAP MASK. THE MASK WAS IMMEDIATELY REMOVED AND YANKAUER SUCTION WAS USED, SHE LOST SATS TO MID 70'S. AN ENTIRE BED BATH AND LINEN CHANGE WAS DONE, ALSO SHE WAS GIVEN ONDANSETRON IV. SHE IS NOW RESTING ON HER RIGHT SIDE, CPAP BACK ON. SHE WAS SOUNDING VERY WET DURING HER EPISODE, SHE WAS ABLE TO COUGH AND CLEAR QUITE A BIT.
--- NOTE | 2023-02-28 18:24 | NUR ---
FREDDIE HAS BEEN VERY SLEEPY MOST OF TODAY. SHE HAS SWITCHED BETWEEN CPAP AND NC @ 4L. HER LUNGS HAVE BEEN CONGESTED T/O THE DAY, INTERMITTENTLY WHEEZING. SHE HAD THE EPISODE OF VOMITING NOTED EARLIER. SHE HAS BEEN ABLE TO COUGH UP QUITE A BIT OF GREEN/BROWN THICK TENACIOUS RETURN. SPECIMEN SENT TO LAB. SHE HAS BEEN DOWNGRADED TO PCU STATUS, SHE CONTINUES TO COMPLAIN OF PAIN AND IS MEDICATED REGULARLY. CONTINUE TO TRY TO WEAN TO ORAL PAIN MEDICATION WHEN TOLERATED. BP REMAINS STABLE, NO PRESSOR SUPPORT REQUIRED. REAL CONTINUES WITH GOOD URINE OUTPUT.
[2023-02-28 20:25] LABS: Vancomycin, Trough 15.7 ug/mL (5.0-10.0)
--- NOTE | 2023-02-28 22:46 | NUR ---
ASSUMED CARE ASSUMED CARE AT 1900. PT A/O X 4 BUT LETHARGIC AND DROWSY. PT DENIED N/V AT BEGINNING OF SHIFT, PREMEDICATED WITH ZOFRAN PRIOR TO HS MEDICATION D/T PT N/V EPISODES T/O DAY. VSS. SR/ST W/ BBB 90-100'S. NS AT 40ML/HR. PT WORE CPAP APPROX [phone]. PT THEN BEGAN TO C/O NAUSEA. PLACED ON NC, SAT UPRIGHT, AND COLD WASHCLOTH APPLIED. APPROX 10 MINS LATER PT HAD 13 BEAT RUN OF SVT. PT DENIED CHEST PAIN. DR JACKSON CALLED. NO NEW ORDERS. REAL PATENT AND DRAINING TO GRAVITY.
[2023-03-01] VITALS (21 sets, daily range): BP systolic 65–148; BP diastolic 48–102
[2023-03-01 03:18] LABS: Hematocrit 29.5 % (33.0-51.0); Hemoglobin 9.4 g/dL (11.5-16.0); Mean Corpuscular HGB Conc 31.9 g/dL (31.5-36.5); Mean Corpuscular Volume 94 fL (80-100); Mean Platelet Volume 9.9 fL (9.1-12.4); NRBC ABSOLUTE 0.03 K/mm3 (0.00-0.02); NRBC Auto 0.2 /100 WBC (0.0-0.2); Platelet Count 215 K/mm3 (150-400); RDW Coefficient Variation 16.4 % (11.7-14.2); RDW Standard Deviation 56.3 fL (35.1-46.3); Red Blood Cell Count 3.13 M/mm3 (3.80-5.20); White Blood Cell Count 19.16 K/mm3 (4.00-11.30)
[2023-03-01 03:36] LABS: Albumin, Blood 2.1 g/dL (3.4-5.0); Anion Gap 8 mmol/L (6-16); Blood Urea Nitrogen 62 mg/dL (8-24); Bun/Creatinine Ratio 47.3 (12.0-20.0); CO2, Blood 22 mmol/L (21-32); Calcium, Blood 8.6 mg/dL (8.5-10.1); Chloride, Blood 109 mmol/L (98-108); Creatinine, Blood 1.31 mg/dL (0.40-1.00); Glomerular Filtration Rate 42 (60-); Glucose, Blood 165 mg/dL (70-99); Phosphorus, Blood 3.1 mg/dL (2.5-4.9); Potassium, Blood 4.8 mmol/L (3.5-5.5); Sodium, Blood 139 mmol/L (136-145)
[2023-03-01 03:54] LABS: BAND PERCENT MAN 7 % (0-8); BASOPHILS PERCENT MAN 0 % (0-2); EOSINOPHILS ABSOLUTE MAN 0.76 K/mm3 (0.00-0.68); EOSINOPHILS PERCENT MAN 4 % (0-6); LYMPHOCYTES ABSOLUTE MAN 1.53 K/mm3 (0.84-5.20); LYMPHOCYTES PERCENT MAN 8 % (21-46); METAMYELOCYTE ABSOLUTE MAN 0.76 K/mm3 (0.00-0.00); METAMYELOCYTE PERCENT MAN 4 % (0-0); MONOCYTES ABSOLUTE MAN 1.72 K/mm3 (0.16-1.47); MONOCYTES PERCENT MAN 9 % (4-13); MYELOCYTE ABSOLUTE MAN 0.57 K/mm3 (0.00-0.00); MYELOCYTE PERCENT MAN 3 % (0-0); NEUTROPHILS ABSOLUTE MAN 13.79 K/mm3 (1.96-9.15); SEG NEUTROPHILS PERCENT MAN 65 % (41-73); TOTAL CELLS COUNTED 100
--- NOTE | 2023-03-01 05:27 | NUR ---
SHIFT SUMMARY NO ACUTE EVENTS T/O NIGHT. PT MORE ALERT THIS AM, ABLE TO HAVE FULL CONVERSATION. C/O PAIN IN LEFT SIDE. MEDICATED WITH PRN PAIN MEDS TWICE THIS SHIFT. MEDICATED WITH ZOFRAN TWICE THIS SHIFT. NO EPISODES OF EMESIS THIS SHIFT. VSS. WORE CPAP MOST OF THE NIGHT EXCEPT WHEN NAUSEATED. 3.5L NC OTHERWISE. PT COUGH STRONGER THIS SHIFT THEN PREVIOUS NIGHT. ABLE TO COUGH UP THICK BROWN/FRANCES SPUTUM. REAL PATENT AND DRAINING TO GRAVITY.
--- NOTE | 2023-03-01 07:02 | NUR ---
Assumed care. Report received from nightshift RN. Pt sleeping in bed, on 02 via NC at 3 L/min. NS infusing at 40 ml/hr. Randall catheter in place. No acute needs at this time, continue to monitor.
--- NOTE | 2023-03-01 18:41 | NUR ---
Shift summary. Pt up to recliner this shift until approximately 1300. Pt alert and oriented all shift, able to work with PT/OT although she is weak and deconditioned. Pt c/o pain in left side, medicated per EMAR. No acute events this shift. See chart for further details. Will continue to monitor and report off to nightshift RN.
[2023-03-02] VITALS (62 sets, daily range): BP systolic 56–125; BP diastolic 42–90
[2023-03-02 04:32] LABS: Hemoglobin 9.3 g/dL (11.5-16.0); Mean Corpuscular HGB 29.8 pg (26.0-34.0); Mean Corpuscular Volume 96 fL (80-100); NRBC ABSOLUTE 0.04 K/mm3 (0.00-0.02); NRBC Auto 0.2 /100 WBC (0.0-0.2); Platelet Count 247 K/mm3 (150-400); RDW Coefficient Variation 16.6 % (11.7-14.2); RDW Standard Deviation 57.8 fL (35.1-46.3); Red Blood Cell Count 3.12 M/mm3 (3.80-5.20); White Blood Cell Count 21.45 K/mm3 (4.00-11.30)
[2023-03-02 04:55] LABS: Anion Gap 3 mmol/L (6-16); Blood Urea Nitrogen 57 mg/dL (8-24); Bun/Creatinine Ratio 52.8 (12.0-20.0); CO2, Blood 23 mmol/L (21-32); Calcium, Blood 8.8 mg/dL (8.5-10.1); Chloride, Blood 112 mmol/L (98-108); Creatinine, Blood 1.08 mg/dL (0.40-1.00); Glomerular Filtration Rate 53 (60-); Glucose, Blood 155 mg/dL (70-99); Phosphorus, Blood 2.9 mg/dL (2.5-4.9); Potassium, Blood 5.3 mmol/L (3.5-5.5); Sodium, Blood 138 mmol/L (136-145)
[2023-03-02 05:18] LABS: BAND PERCENT MAN 7 % (0-8); BASOPHILS PERCENT MAN 0 % (0-2); EOSINOPHILS ABSOLUTE MAN 0.64 K/mm3 (0.00-0.68); EOSINOPHILS PERCENT MAN 3 % (0-6); LYMPHOCYTES ABSOLUTE MAN 1.28 K/mm3 (0.84-5.20); LYMPHOCYTES PERCENT MAN 6 % (21-46); METAMYELOCYTE ABSOLUTE MAN 0.85 K/mm3 (0.00-0.00); METAMYELOCYTE PERCENT MAN 4 % (0-0); MONOCYTES ABSOLUTE MAN 1.28 K/mm3 (0.16-1.47); MONOCYTES PERCENT MAN 6 % (4-13); MYELOCYTE ABSOLUTE MAN 1.28 K/mm3 (0.00-0.00); MYELOCYTE PERCENT MAN 6 % (0-0); NEUTROPHILS ABSOLUTE MAN 16.08 K/mm3 (1.96-9.15); SEG NEUTROPHILS PERCENT MAN 68 % (41-73); TOTAL CELLS COUNTED 100
--- NOTE | 2023-03-02 06:54 | NUR ---
SHIFT SUMMARY PATIENT ALERT AND ORIENTED X4. TRANSFERRED TO PCU 18 FROM ICU 3 THIS MORNING. MEDICATED PER EMAR FOR PAIN FROM HER RIB FRACTURES. PATIENT ON 2 LITERS O2 VIA NC WITH SPO2 >90%. PATIENT DENIES SHORTNESS OF BREATH. VITAL SIGNS STABLE WITH SBP IN 110'S. NO ACUTE ISSUES NOTED OVERNIGHT. WILL CONTINUE TO MONITOR. CALL LIGHT WITHIN REACH.
--- NOTE | 2023-03-02 11:24 | NUR ---
AM NOTE/TRANSFER SUMMARY: ASSUMED CARE OF PT THIS AM APPROX 0715 AFTER RECEIVING REPORT FROM BRETT TANNER. INITIAL VS HYPOTENSIVE, PROVIDER NOTIFIED W/ORDERS FOR FLUID BOLUS AND MAINTENANCE RATE CARRIED OUT, NO IMPROVEMENT TO BLOOD PRESSURE. PT ALSO BECOMES MORE SOB WITH INCREASED WOB T/OUT THE AM, EVENTUALLY PLACED ON BIPAP VIA V30, RESPIRATIONS BECAME LESS LABORED W/O2 SATS >93%. PT CONTINUED HYPOTENSIVE AND WAS TRANSFERED TO ICU. REPORT GIVEN TO BRETT LOAIZA IN ICU TO ASSUME CARE OF PT. PT TRANSFERED AT APPROX 1010 TO ICU.
[2023-03-02 14:13] LABS: Hematocrit 30.5 % (33.0-51.0); Hemoglobin 9.4 g/dL (11.5-16.0)
--- NOTE | 2023-03-02 16:33 | NUR ---
INCREASED PAIN PATIENT COMPLAINING OF INCREASED LT RIB AND ABD PAIN DESPITE MEDICATING WITH 50MCG FENTANYL IV AND HYDROCODONE 5MG/325MG PO. CALL MADE TO DR. LEMON AND ORDER RECEIVED FOR ONE ADDITIONAL DOSE OF HYDROCODONE 5MG/325MG PO AND INCREASING HYDROCODONE TO 10MG/325MG PO Q6H.
--- NOTE | 2023-03-02 17:00 | NUR ---
IPAD PATIENT TOOK IPAD AND PLANNING ASSISTANT HOME DUE TO PATIENT NOT USING IT.
--- NOTE | 2023-03-02 18:29 | NUR ---
SHIFT SUMMARY PATIENT REMAINS ON BIPAP 19/04 WITH 3LPM BLEED IN. SPO2 HIGH 90'S. A&O X 4. DIFFICULT TO CONTROL PAIN, SEE PREVIOS PAIN NOTE. PATIENT HAD MULTIPLE MAROON BM AND GOOD URINE OUTPUT. LASIX 20MG IV X 1 GIVEN. NO OTHER EVENTS THIS SHIFT.
[2023-03-02 20:43] LABS: Hematocrit 29.1 % (33.0-51.0); Hemoglobin 9.1 g/dL (11.5-16.0)
[2023-03-02 21:09] LABS: Vancomycin, Trough 15.7 ug/mL (5.0-10.0)
--- NOTE | 2023-03-02 22:00 | NUR ---
PATIENT VALUABLES PATIENT TRANSFER TO ICU 14 WITH BELONGINGS. ONLY PERSONAL ITEMS FOUND IN ROOM WAS GLASSES AND DENTURES. CALL PLACED TO PCU TO SEE IF THEY HAD HER IPAD AND NUTRITION TECH THAT WERE MOVED WITH PATIENT WHEN SHE WENT FROM ICU 3 TO PCU 18. ITEMS NOT FOUND MESSAGE LEFT WITH PATIENTS TO SEE IF HE TOOK THEM HOME.
--- NOTE | 2023-03-02 22:18 | NUR ---
PATIENT SLEEPING WITH BIPAP 19/04 WITH 3L BLEED IN. AWAKENS TO SLIGHT STIMULI. VERBALIZED CONTINUED PAIN TO HER LEFT SIDE. PATIENT MOVED TO ICU 14 ON 3L/NC PATIENT C/O NAUSEA AND INCREASE IN LEFT SIDE PAIN AFTER CHANGING ROOMS. MEDICATED PER EMAR. TAKING ONLY 2 BITES OF PUDDING WITH PILLS. ICE PACK PLACED TO LEFT SIDE AND BIPAP REPLACED WHEN NAUSEA RESOLVED. ATTEMPT TO CALL PATIENTS TO NOTIFY OF CHANGE IN ROOM, MESSAGE LEFT ON VOICE MAIL
[2023-03-03] VITALS (21 sets, daily range): BP systolic 84–136; BP diastolic 50–94
[2023-03-03 05:27] LABS: Hematocrit 28.4 % (33.0-51.0); Hemoglobin 8.8 g/dL (11.5-16.0); Mean Corpuscular HGB 29.8 pg (26.0-34.0); Mean Corpuscular Volume 96 fL (80-100); Mean Platelet Volume 10.1 fL (9.1-12.4); NRBC ABSOLUTE 0.04 K/mm3 (0.00-0.02); NRBC Auto 0.3 /100 WBC (0.0-0.2); Platelet Count 212 K/mm3 (150-400); RDW Coefficient Variation 16.8 % (11.7-14.2); Red Blood Cell Count 2.95 M/mm3 (3.80-5.20); White Blood Cell Count 15.73 K/mm3 (4.00-11.30)
[2023-03-03 06:06] LABS: Bun/Creatinine Ratio 50.2 (12.0-20.0); Calcium, Blood 8.8 mg/dL (8.5-10.1); Creatinine, Blood 0.94 mg/dL (0.40-1.00); Potassium, Blood 5.4 mmol/L (3.5-5.5)
--- NOTE | 2023-03-03 06:16 | NUR ---
PATIENT AWAKE MOIST COUGH WITH SMALL AMT OF WHITE SPUTUM SUCTIONED FROM MOUTH. C/O INCREASED LEFT SIDE PAIN. BIOX DOWN TO 80% BIPAP MASK ADJUSTED OXYGEN INCREASED TO FLUSH AND PATIENT REPOSITIONED. RT CALLED. FENTANYL IV GIVEN. PATIENT NOW ON BIPAP 19/04 10L BLEED IN.
--- NOTE | 2023-03-03 06:38 | NUR ---
SUMMARY PATIENT SLEEPING WITH BIPAP 19/[address] OXYGEN INCREASED TO 10L BLEED IN EARLY THIS MORNING. PATIENT CONTINUES TO HAVE PAIN TO LEFT SIDE, BECOMING SOMNOLENT WITH PAIN MEDICATIONS. ICE PACK PLACED TO LEFT SIDE TWICE DURING THE NIGHT WITH SOME RELIEF. C/O NAUSEA WHEN INCREASED PAIN. ZOFRAN GIVEN X1 LAST NIGHT. VOIDING ONCE ON BEDPAN YELLOW URINE, NO BM DURING THE NIGHT, PASSING FLATUS.
--- NOTE | 2023-03-03 09:49 | NUR ---
ASSUMED CARE I ASSUMED CARE OF THIS PATIENT AT 0700. PATIENT SLEEPING AT THE TIME OF REPORT WITH NO FAMILY AT BEDSIDE. PATIENT IS NOW AWAKE WITH AT BEDSIDE VISITING. ANTIBIOTIC INF CURRENTLY TO LEILA COWART. BIPAP IN PLACE 14/8 W/ 3LPM BLEED IN. SPO2 GREATER THAN 90%. SHORT BIPAP BREAK THIS AM FOR MEDICATION ADMINISTRATION WHICH PATIENT DID NOT TOLERATE WELL. COMPLAINED OF DYSPNEA AND SPO2 DROPPED TO 88% ON ROOM AIR. 3LPM VIA NC APPLIED AND SPO2 IMPROVED TO MID TO HIGH 90'S STILL WITH COMPLAINTS OF DYSPNEA. BIPAP PLACED BACK ON PATIENT AFTER MEDICATION ADMINISTRATION. ATTENDS IN PLACE. REPORT COMPLETED WITH BRETT VALENCIA.
--- NOTE | 2023-03-03 15:02 | NUR ---
DC HEPARIN PATIENT HAD MAROON/TARRY BM. CALL MADE TO DR. LEMON AND ORDER RECEIVED TO LUDMILA HEPARIN.
--- NOTE | 2023-03-03 17:03 | NUR ---
SHIFT SUMMARY PATIENT FENTANYL DC'D AND DILAUDID STARTED FOR BETTER PAIN CONTROL. ENCOURAGED PATIENT TO DEEP BREATHE AND COUGH T/O SHIFT. PATIENT WAS UP TO CHAIR FOR LUNCH AND APPROXIMATELY 2 HOURS AFTER THAT. PATIENT PARTICIPATED IN PT. PG REMAINS SL. SAIRA RESTARTED THIS AFTERNOON. CALL MADE TO DR. LEMON AND HEPARIN DC'D WITH SCD'S PLACED INSTEAD. INTERMITTENT PERIODS OF CONFUSION AND DIFFICULTY TO VERBALIZE THOUGHTS, BUT REMAINED ORIENTED X 4.
[2023-03-04] VITALS (13 sets, daily range): BP systolic 100–138; BP diastolic 46–88
[2023-03-04 03:57] LABS: Hematocrit 27.4 % (33.0-51.0); Hemoglobin 8.4 g/dL (11.5-16.0); Mean Corpuscular HGB 29.7 pg (26.0-34.0); Mean Corpuscular HGB Conc 30.7 g/dL (31.5-36.5); Mean Corpuscular Volume 97 fL (80-100); NRBC ABSOLUTE 0.03 K/mm3 (0.00-0.02); NRBC Auto 0.2 /100 WBC (0.0-0.2); Platelet Count 220 K/mm3 (150-400); RDW Coefficient Variation 16.8 % (11.7-14.2); RDW Standard Deviation 58.4 fL (35.1-46.3); Red Blood Cell Count 2.83 M/mm3 (3.80-5.20); White Blood Cell Count 16.54 K/mm3 (4.00-11.30)
[2023-03-04 04:51] LABS: Bun/Creatinine Ratio 42.4 (12.0-20.0); Calcium, Blood 8.6 mg/dL (8.5-10.1); Creatinine, Blood 0.97 mg/dL (0.40-1.00); Potassium, Blood 5.5 mmol/L (3.5-5.5)
--- NOTE | 2023-03-04 05:13 | NUR ---
PATIENT IS A&O X4. PERIODS OF LETHARGY. PATIENT IS WEAK AND WITHDRAWN. PATIENT NOT WANTING TO PERFORM ADL'S ON HER OWN. HR AND BLOOD PRESSURE HAVE REMAINED STABLE. PATIENT ON AIRVO 45L 30% SATURATIONS >92% LUNGS SOUND COURSE/DIM. PATIENT WITH SEVERE BRUISING TO L SIDE TORSO. INCONTINET OF BOWEL/URINE.
--- NOTE | 2023-03-04 07:30 | NUR ---
ASSUMED CARE: PT RESTING IN BED, AIRVO IN PLACE AT 45L, 30% FIO2. SENIOR CIVIL ENGINEER AND RN ASSISTING WITH LIFT UP TO CHAIR FOR BREAKFAST. NSR WITH BBB IN 90S. ASKING WHEN PAIN MEDICATION IS DUE. DENIES FURTHER NEEDS OR CONCERNS AT THIS TIME.
--- NOTE | 2023-03-04 11:02 | NUR ---
PT GOT BACK TO BED AFTER BREAKFAST. ADMINISTERED ORAL PAIN MEDICATION. PT WAS MOANING AN HOUR LATER AND STATED SHE WAS IN SO MUCH PAIN AND JUST WANTED IT TO BE OVER. UPON CLARIFYING, PT STATED SHE JUST WANTED TO . DR LEMON AND DR العراقي AWARE AND DISCUSSED WITH HER THAT HER DIAGNOSIS IS SOMETHING SHE CAN GET BETTER FROM AND IT WILL JUST TAKE TIME. DR LEMON ADJUSTED PT'S PAIN MANAGEMENT AND ENCOURAGED HER TO CONTINUE WORKING WITH THERAPY AND AMBULATING TO PREVENT DEBILITATION. RT AWARE OF ORDER FOR PERCUSSION.
--- NOTE | 2023-03-04 11:44 | NUR ---
Spiritual Care Consult: ordered by Dr. Indra Jones Pt. is awake in bed and welcomes my visit. Spouse is present. Pt. and spouse had just finished meeting with the CM. Facilitated a life review and sought to focus on Pts. emotional concerns about her prognosis. Pt. is engaged and aware. Pt. verbalized that she "did want to get better." This hotel maid encouraged the spouse that he is and should be the Pts. primary advocate. Both Pt. and spouse displayed evidence of being motivated to progress with treatments at one of our local SNFs. Pt. and spouse verbalize gratitude for the spiritual care visit and welcomed this hotel maid to return.
--- NOTE | 2023-03-04 14:41 | NUR ---
WHILE WORKING WITH PHYSICAL THERAPY PT HAD BOWEL MOVEMENT THAT WAS MAROON AND TARRY. DISCUSSED WITH DR العراقي WHO STATED WE ARE MONITORING LABS FOR NOW. H AND H REMAINS STABLE.
--- NOTE | 2023-03-04 17:48 | NUR ---
Spoke with Primary BRETT Coon and discussed case. Pt resting in bed and on AIRVO. Pt spouse Robinson at bedside. Pt reports 9/10 pain in her ribs. She denies nausea at this time. Some mild anxiety noted. Brief discussion regarding code status. Attempted to educate on life sustaining treatments with spouse appearing apprehensive with discussion and states she wants CPR. Listened as spouse also requesting that Pt not be D/C from the hospital until "the pneumonia is completing gone". Primary BRETT Coon in to offer Pt's dinner and pain medication. Ended visit. Palliative Care will remain available
--- NOTE | 2023-03-04 18:32 | NUR ---
SHIFT SUMMARY: PT REMAINS IN NSR WITH BBB IN THE 90S. AIRVO IN PLACE AT 45L, 35% FIO2. UP IN CHAIR X2 THIS SHIFT. FREQUENTLY REQUIRING ENCOURAGEMENT TO DO ACTIVITIES ON HER OWN. IS AT BEDSIDE AND TRIES TO BE VERY HELPFUL. PALLIATIVE CARE DISCUSSED CODE STATUS AND WISHES FOR PT TO REMAIN FULL CODE. KRISTA DISCUSSED PLAN WITH PT AND INFORMED HER THAT HER SITUATION IS TREATABLE BUT IS A LONG ROAD FOR RECOVERY. PLAN IS FOR SNF WHEN STABLE FOR DC.
--- NOTE | 2023-03-04 21:07 | NUR ---
ASSUMED CARE AT 1900 PATIENT IS ALERT AND ORIENTED X4. 02 SATS 98%ON AIRVO, CPAP WHILE SLEEPING. PATIENT COUGHING UP GREEN SPUTUM WITH RED STREAKS. HR SR 91. BP STABLE. 1 PERSON ASSIST WITH REPOSITIONING. CALL LIGHT IN REACH
[2023-03-05] VITALS (24 sets, daily range): BP systolic 83–141; BP diastolic 45–94
[2023-03-05 03:43] LABS: Hematocrit 29.5 % (33.0-51.0); Hemoglobin 9.2 g/dL (11.5-16.0); Mean Corpuscular HGB Conc 31.2 g/dL (31.5-36.5); Mean Corpuscular Volume 96 fL (80-100); Mean Platelet Volume 9.8 fL (9.1-12.4); NRBC ABSOLUTE 0.08 K/mm3 (0.00-0.02); NRBC Auto 0.4 /100 WBC (0.0-0.2); Platelet Count 262 K/mm3 (150-400); RDW Coefficient Variation 16.9 % (11.7-14.2); RDW Standard Deviation 57.3 fL (35.1-46.3); Red Blood Cell Count 3.07 M/mm3 (3.80-5.20); White Blood Cell Count 17.84 K/mm3 (4.00-11.30)
[2023-03-05 04:12] LABS: Bun/Creatinine Ratio 38.6 (12.0-20.0); Calcium, Blood 8.7 mg/dL (8.5-10.1); Creatinine, Blood 0.75 mg/dL (0.40-1.00); Phosphorus, Blood 2.5 mg/dL (2.5-4.9); Potassium, Blood 5.4 mmol/L (3.5-5.5)
--- NOTE | 2023-03-05 06:07 | NUR ---
SHIFT SUMMARY PATIENT IS ALERT AND ORIENTED X4, CAN BE FORGETFUL AT TIMES. 02 SATS 97% ON AIRVO 45L 30% FI02. PATIENT DID WEAR BIPAP WHILE SLEEPING. COUGHING UP THICK GREEN SECRETIONS. HR SR 90s, BP STABLE THROUGH THE NIGHT. MEDICATED FOR LEFT RIB/ABDOMINAL PAIN PRN PER EMAR. ENCOURAGED PATIENT TO HELP WITH CARE AND REPOSITIONING. INCONTINENT, ATTENDS IN PLACE. NO BOWEL MOVEMENT THIS SHIFT. CALL LIGHT IN REACH.
--- NOTE | 2023-03-05 10:17 | NUR ---
PATIENT AND FAMILY EDUCATED RE: IGNITION SOURCES AND RISK OF INJURY WHILE OXYGEN IS IN USE. PATIENT AND FAMILY VERBALIZED UNDERSTANDING OF INSTRUCTIONS AND HAD NO FURTHER QUESTIONS AT THIS TIME.
--- NOTE | 2023-03-05 10:58 | NUR ---
AT 1000 PT WANTED TO USE BEDPAN TO VOID. PT BECAME SOB AND HAVING SHARP CP MIDSTERNUM WITH NAUSEA. EKG DONE, DILAUDID AND ZOFRAN GIVEN. CALLED DR. ARAUJO. TROPONIN PENDING. ONE DOSE OF SL NITRO GIVEN WITHOUT MUCH RELIEF. CXR DONE, DR. AGUILAR REVIEWING. PT HAS BEEN ON AND OFF BIPAP, AIRVO, AND NC ALL MORNING TRYING TO GET COMFORTABLE. SPO2 IN THE 90'S NO MATTER WHICH FORM OF O2 SHE IS ON.
--- NOTE | 2023-03-05 17:43 | NUR ---
SUMMARY PT A/O X4. HAS PAIN IN RIBS FROM FRACTURES. HAD AN EPISODE OF CP TODAY THAT EVENTUALLY RESOLVED. PT HAS BEEN ON 4L NC FOR MOST OF THE DAY WITHOUT SOB. LS COARSE AND PT IS COUGHING UP LARGE AMT OF GREEN SPUTUM. USING FLUTTER VALVE INDEP. SAT AT THE SIDE OF BED TODAY WITH MINIMAL ASSIST. DR. AGUILAR ATTEMPTED THORACENTESIS BUT UNSUCCESSFUL. PT RESTING IN BED NO SIGN OF DISTRESS.
--- NOTE | 2023-03-05 20:30 | NUR ---
ASSUMED CARE AT 1900 PATIENT IS ALERT AND ORIENTED X4. PAIN 8/10 IN RIBS, MEDICATED PRN PER EMAR. 02 SATS 98% ON 4L VIA NC, LS COARSE, LEFT SIDE MORE DIMINISHED. HR SR 95, BP STABLE. PATIENT DENIES CP/PRESSURE AT THIS TIME. PUREWICK IN PLACE. HELP WITH REPOSITIONING. PATIENT EDUCATED ON RISK OF OXYGEN USE, DENIES SMOKING AT THIS TIME AND VERBALIZED UNDERSTANDING
[2023-03-05 20:49] LABS: Vancomycin, Trough 12.1 ug/mL (5.0-10.0)
[2023-03-06] VITALS (18 sets, daily range): BP systolic 81–150; BP diastolic 39–91
--- NOTE | 2023-03-06 06:08 | NUR ---
SHIFT SUMMARY PATIENT ALERT AND ORIENTED X4. 02 SATS 96% ON 4L NC. PATIENT WORE BIPAP MOST THE NIGHT WHILE SLEEPING. BP STABLE. DENIED CP/PRESSURE THIS SHIFT. MEDICATED FOR LEFT RIB PAIN PER EMAR. PUREWICK REMAINS IN PLACE. CALL LIGHT IN REACH
--- NOTE | 2023-03-06 07:23 | NUR ---
IGNITION RISK: PT DENIES SMOKING OR HAVING ANY SOURCE OF IGNITION IN BELONGINGS.
[2023-03-06 07:54] LABS: Hematocrit 29.8 % (33.0-51.0); Hemoglobin 9.2 g/dL (11.5-16.0); Mean Corpuscular HGB 29.7 pg (26.0-34.0); Mean Corpuscular HGB Conc 30.9 g/dL (31.5-36.5); Mean Corpuscular Volume 96 fL (80-100); Mean Platelet Volume 9.5 fL (9.1-12.4); NRBC ABSOLUTE 0.05 K/mm3 (0.00-0.02); NRBC Auto 0.3 /100 WBC (0.0-0.2); Platelet Count 287 K/mm3 (150-400); RDW Coefficient Variation 17.2 % (11.7-14.2); RDW Standard Deviation 58.8 fL (35.1-46.3); White Blood Cell Count 15.51 K/mm3 (4.00-11.30)
[2023-03-06 08:12] LABS: Bun/Creatinine Ratio 27.4 (12.0-20.0); Creatinine, Blood 0.77 mg/dL (0.40-1.00); Magnesium, Blood 1.5 mg/dL (1.6-2.4); Phosphorus, Blood 2.4 mg/dL (2.5-4.9); Potassium, Blood 5.1 mmol/L (3.5-5.5)
[2023-03-06 08:31] LABS: BAND PERCENT MAN 2 % (0-8); BASOPHILS PERCENT MAN 0 % (0-2); EOSINOPHILS ABSOLUTE MAN 0.15 K/mm3 (0.00-0.68); EOSINOPHILS PERCENT MAN 1 % (0-6); LYMPHOCYTES % ATYPICAL MANUAL 1 % (0-0); LYMPHOCYTES ABSOLUTE MAN 2.32 K/mm3 (0.84-5.20); LYMPHOCYTES PERCENT MAN 14 % (21-46); METAMYELOCYTE ABSOLUTE MAN 0.62 K/mm3 (0.00-0.00); METAMYELOCYTE PERCENT MAN 4 % (0-0); MONOCYTES PERCENT MAN 0 % (4-13); MYELOCYTE ABSOLUTE MAN 0.15 K/mm3 (0.00-0.00); MYELOCYTE PERCENT MAN 1 % (0-0); NEUTROPHILS ABSOLUTE MAN 12.25 K/mm3 (1.96-9.15); SEG NEUTROPHILS PERCENT MAN 77 % (41-73); TOTAL CELLS COUNTED 100
--- NOTE | 2023-03-06 09:15 | NUR ---
PT TAKEN TO CT AND BACK. NOW BEING EVALUATED BY SPEECH THERAPIST. PT HAD AN EPISODE THIS AM WITH BREAKFAST WHERE SHE FELT LIKE SOMETHING WAS SITTING IN HER CHEST. HR INCREASED TO 120. SPO2 REMAINED GREATER THAN 90% DURING EPISODE ON NC. DILAUDID GIVEN FOR PAIN IN L RIBS. WILL HOLD PO UNTIL RECOMMENDATIONS FROM ST.
--- NOTE | 2023-03-06 18:32 | NUR ---
SUMMARY PT A/O X4. MEDICATED FOR PAIN IN L RIBS TODAY. PT GOT TO CHAIR WITH FWW AND GAIT BELT AND MINIMAL ASSIST FROM STAFF. SAT IN CHAIR FOR CLOSE TO 3 HOURS. ALSO GOT FROM CHAIR TO BSC AT ONE POINT. PT HAS BEEN DILIGENT ABOUT USING IS AND FLUTTER VALVE. PASSED SPEECH EVAL TODAY. HAS BEEN ON 2-3L NC ALL DAY WITOUT DESATTING. CT CHEST WAS DONE TODAY, NO INTERVENTION DONE. NO SIGN OF DISTRESS. USES CALL LIGHT APPROPRIATELY.
--- NOTE | 2023-03-06 20:52 | NUR ---
ASSUMED CARE PT IS A&O X4; SPO2 >92% ON 2L NC; MAP >65; NSR. PT DENIES ANY CP, SOB, OR NAUSEA; STATES THAT SHE FEEL'S "PRETTY GOOD". PT HAS A PRODUCTIVE COUGH; PT USES PILLOW TO SPLINT BROKEN RIBS AND USES FLUTTER VALVE/INCENTIVE SPIROMETER; APPEARS MOTIVATED TO IMPROVE. PURE WICK IN PLACE.
[2023-03-07] VITALS (15 sets, daily range): BP systolic 99–139; BP diastolic 45–71
[2023-03-07 03:06] LABS: Hematocrit 26.9 % (33.0-51.0); Hemoglobin 8.3 g/dL (11.5-16.0); Mean Corpuscular HGB Conc 30.9 g/dL (31.5-36.5); Mean Corpuscular Volume 97 fL (80-100); Mean Platelet Volume 9.8 fL (9.1-12.4); NRBC ABSOLUTE 0.02 K/mm3 (0.00-0.02); NRBC Auto 0.1 /100 WBC (0.0-0.2); Platelet Count 278 K/mm3 (150-400); RDW Coefficient Variation 17.3 % (11.7-14.2); RDW Standard Deviation 58.6 fL (35.1-46.3); Red Blood Cell Count 2.77 M/mm3 (3.80-5.20); White Blood Cell Count 14.31 K/mm3 (4.00-11.30)
[2023-03-07 03:34] LABS: Bun/Creatinine Ratio 23.7 (12.0-20.0); Calcium, Blood 8.5 mg/dL (8.5-10.1); Creatinine, Blood 0.85 mg/dL (0.40-1.00); Phosphorus, Blood 3.1 mg/dL (2.5-4.9); Potassium, Blood 4.9 mmol/L (3.5-5.5)
[2023-03-07 03:38] LABS: BAND PERCENT MAN 7 % (0-8); BASOPHILS PERCENT MAN 0 % (0-2); EOSINOPHILS ABSOLUTE MAN 0.42 K/mm3 (0.00-0.68); EOSINOPHILS PERCENT MAN 3 % (0-6); LYMPHOCYTES PERCENT MAN 14 % (21-46); MONOCYTES ABSOLUTE MAN 0.71 K/mm3 (0.16-1.47); MONOCYTES PERCENT MAN 5 % (4-13); MYELOCYTE ABSOLUTE MAN 0.28 K/mm3 (0.00-0.00); MYELOCYTE PERCENT MAN 2 % (0-0); NEUTROPHILS ABSOLUTE MAN 10.87 K/mm3 (1.96-9.15); SEG NEUTROPHILS PERCENT MAN 69 % (41-73); TOTAL CELLS COUNTED 100
--- NOTE | 2023-03-07 04:44 | NUR ---
SHIFT SUMMARY PT SLEPT T/O NIGHT. SPO2 >92% ON BIPAP. PT HAS SOFT PRESSURES, BUT REMAINS ASYMPTOMATIC (DENIES CP, SOB). MAP >65 (SOME LOWER, BUT PT HAD ARM FLEXED ETC./CONSISTANT W/ PREVIOUS SHIFT). PT STATES SHE SLEPT WELL. NO ACUTE EVENTS OVERNIGHT.
--- NOTE | 2023-03-07 09:05 | NUR ---
AM NOTE... ASSUMED CARE OF PT AT 0700, PT IS A&Ox4. PT'S VS STABLE AT THIS TIME, SHE ON RA TO 2L NC WITH O2 SATS >90% L/S CLEAR ON THE RIGHT SIDE DIM ON THE LEFT. PT C/O OF PAIN TO HER LEFT SIDE/RIBS D/T RIB FX. MEDICATED PER EMAR WITH GOOD RESULTS. PT IS UP TO THE BSC AND THEN TO THE RECLINER CHAIR WITH 1P W/FWW. CALL LIGHT IN REACH WILL CONTINUE TO MONITOR
--- NOTE | 2023-03-07 16:14 | NUR ---
SHIFT SUMMARY/TRANSFER.... REPORT WAS GIVEN TO FRANDY Chang RN IN PCU. PT'S VS STABLE. ALL OF PT'S BELONGINGS WERE PACKED AND SENT WITH THE PT. PT WAS ON RA SINCE 0800 THIS SHIFT. SHE WAS A 1P ASSIST WITH FWW TO THE BSC AND RECLINER CHAIR. PT WAS IND WITH HER MEALS. SHE AND HER WERE EDUCATED ON IGNITION SOURCES AND RISK OF INJURY WHILE OXYGEN IS IN USE. PT DENIES CURRENT SMOKING, BOTH THE PT AND HER VERBALIZE THIER UNDERSTANDING.
[2023-03-07 20:32] LABS: Vancomycin, Trough 12.2 ug/mL (5.0-10.0)
[2023-03-08 00:05] VITALS: BP 124/50
[2023-03-08 04:27] VITALS: BP 125/60
[2023-03-08 04:51] LABS: BASOPHILS ABSOLUTE AUTO 0.05 K/mm3 (0.00-0.23); BASOPHILS PERCENT AUTO 1 % (0-2); EOSINOPHILS ABSOLUTE AUTO 0.28 K/mm3 (0.00-0.68); EOSINOPHILS PERCENT AUTO 3 % (0-6); Hemoglobin 8.3 g/dL (11.5-16.0); IMMATURE GRAN ABSOLUTE AUTO 0.52 K/mm3 (0.00-0.10); IMMATURE GRAN PERCENT AUTO 5 % (0-1); LYMPHOCYTES ABSOLUTE AUTO 1.83 K/mm3 (0.84-5.20); LYMPHOCYTES PERCENT AUTO 18 % (21-46); MONOCYTES ABSOLUTE AUTO 0.74 K/mm3 (0.16-1.47); MONOCYTES PERCENT AUTO 7 % (4-13); Mean Corpuscular HGB 29.9 pg (26.0-34.0); Mean Corpuscular HGB Conc 30.7 g/dL (31.5-36.5); Mean Corpuscular Volume 97 fL (80-100); Mean Platelet Volume 10.1 fL (9.1-12.4); NEUTROPHILS ABSOLUTE AUTO 6.98 K/mm3 (1.96-9.15); NEUTROPHILS PERCENT AUTO 67 % (41-73); Platelet Count 283 K/mm3 (150-400); RDW Coefficient Variation 17.5 % (11.7-14.2); RDW Standard Deviation 60.1 fL (35.1-46.3); Red Blood Cell Count 2.78 M/mm3 (3.80-5.20)
[2023-03-08 05:13] LABS: Albumin, Blood 2.2 g/dL (3.4-5.0); Albumin/Globulin Ratio 0.6 (0.8-1.8); Bilirubin, Total 0.6 mg/dL (0.1-1.0); Bun/Creatinine Ratio 28.9 (12.0-20.0); Calcium, Blood 8.6 mg/dL (8.5-10.1); Creatinine, Blood 0.76 mg/dL (0.40-1.00); Globulin, Blood 3.4 g/dL (2.2-4.0); Potassium, Blood 4.5 mmol/L (3.5-5.5); Total Protein, Blood 5.6 g/dL (6.4-8.2)
--- NOTE | 2023-03-08 05:30 | NUR ---
SHIFT SUMMARY PATIENT A&OX4. NO COMPLAINTS OF CHEST PAIN VS STABLE. TOLERATED BIPAP OVERNIGHT. PATIENT EDUCATED ON IGNITION SOURCES AND THE USE OF OXYGEN. PATIENT DENIES USE OF IGNITION SOURCES.
[2023-03-08 07:24] VITALS: BP 152/79
[2023-03-08 11:50] VITALS: BP 147/66
[2023-03-08 15:40] VITALS: BP 99/43
--- NOTE | 2023-03-08 17:50 | NUR ---
SHIFT SUMMARY; ASSUMED CARE AT 0700. A/A/OX4. ASSIST WITH REPOSITIONING T/O SHIFT. UP TO CHAIR FOR MEALS. AMBULATING TO BATHROOM WITH FWW AND SBA. 1-2L O2 VIA NC PRN FOR SOB. ENCOURAGED DEEP BREATHING AND IS. FAMILY AT BEDSIDE DURING SHIFT. NO ACUTE MEDICAL CHANGES, WILL CONTINUE TO MONITOR AND TREAT UNTIL CHANGE OF SHIFT. STATUS CHANGED TO MEDICAL, AWAITING SNFF PLACEMENT.
[2023-03-08 20:15] VITALS: BP 135/59
--- NOTE | 2023-03-09 05:04 | NUR ---
SHIFT SUMMARY A/OX4, 1P ASSIST WITH FWW AND GB. CONT/INCONT, ATTENDS AND PUREWICK IN PLACE. SPO2 >92% ON CPAP T/O THE NIGHT. VSS, NO ACUTE CHANGES AT THIS TIME. BED IN LOWEST POSITION WITH CALL LIGHT IN REACH. WILL CONTINUE TO MONITOR AND REPORT TO ONCOMING RN. PATIENT EDUCATED RE: IGNITION SOURCES AND RISK OF INJURY WHILE OXYGEN IS IN USE. PATIENT DENIES SMOKING VERBALIZES UNDERSTANDING.
[2023-03-09 05:06] LABS: BASOPHILS ABSOLUTE AUTO 0.05 K/mm3 (0.00-0.23); BASOPHILS PERCENT AUTO 1 % (0-2); EOSINOPHILS ABSOLUTE AUTO 0.17 K/mm3 (0.00-0.68); EOSINOPHILS PERCENT AUTO 2 % (0-6); Hematocrit 27.3 % (33.0-51.0); Hemoglobin 8.4 g/dL (11.5-16.0); IMMATURE GRAN ABSOLUTE AUTO 0.28 K/mm3 (0.00-0.10); IMMATURE GRAN PERCENT AUTO 3 % (0-1); LYMPHOCYTES ABSOLUTE AUTO 1.65 K/mm3 (0.84-5.20); LYMPHOCYTES PERCENT AUTO 16 % (21-46); MONOCYTES ABSOLUTE AUTO 0.73 K/mm3 (0.16-1.47); MONOCYTES PERCENT AUTO 7 % (4-13); Mean Corpuscular HGB 29.9 pg (26.0-34.0); Mean Corpuscular HGB Conc 30.8 g/dL (31.5-36.5); Mean Corpuscular Volume 97 fL (80-100); Mean Platelet Volume 10.1 fL (9.1-12.4); NEUTROPHILS ABSOLUTE AUTO 7.28 K/mm3 (1.96-9.15); NEUTROPHILS PERCENT AUTO 72 % (41-73); Platelet Count 279 K/mm3 (150-400); RDW Standard Deviation 61.1 fL (35.1-46.3); Red Blood Cell Count 2.81 M/mm3 (3.80-5.20); White Blood Cell Count 10.16 K/mm3 (4.00-11.30)
[2023-03-09 05:47] LABS: Albumin, Blood 2.2 g/dL (3.4-5.0); Albumin/Globulin Ratio 0.6 (0.8-1.8); Bilirubin, Total 0.6 mg/dL (0.1-1.0); Bun/Creatinine Ratio 28.8 (12.0-20.0); Calcium, Blood 8.6 mg/dL (8.5-10.1); Creatinine, Blood 0.8 mg/dL (0.40-1.00); Globulin, Blood 3.4 g/dL (2.2-4.0); Potassium, Blood 4.6 mmol/L (3.5-5.5); Total Protein, Blood 5.6 g/dL (6.4-8.2)
[2023-03-09 07:40] VITALS: BP 125/67
[2023-03-09 10:55] LABS: SARS-Cov-2 (COVID-19) PCR, MMC NEGATIVE (NEGATIVE)
[2023-03-09] MEDS ORDERED: AMOCLA875 PO (12:37)
[2023-03-09] MEDS ORDERED: DOXY100 PO (12:37)
[2023-03-09] MEDS ORDERED: Norco 10-325 T1 EACH PO (12:38)
[2023-03-09] MEDS ORDERED: Diflucan100 MG PO (12:38)
== END 2023-03-09 14:39 | DRG 871 ==
LOC: ER 10:35 → ICUE 15:13 → MEDS 15:13 → ICUE 22:32 → PCU 02-27 16:14 → ICUE 02-28 13:50 → PCU 03-02 03:45 → ICUE 03-02 09:54 → PCU 03-07 16:26
PROVIDERS: Family Medicine; Internal Medicine; Internal Medicine Critical Care Medicine; Nurse Practitioner Acute Care; Physician Assistant; ADMIT Internal Medicine
PROC: 3E03329 Introduction of Other Anti-infective into Peripheral Vein, Percutaneous Approach (ICD-10-PCS; principal; 2023-02-26)
PROC: 3E033XZ Introduction of Vasopressor into Peripheral Vein, Percutaneous Approach (ICD-10-PCS; 2023-02-26)
PROC: 5A0945A Assistance with Respiratory Ventilation, 24-96 Consecutive Hours, High Flow/Velocity Cannula (ICD-10-PCS; 2023-02-26)
PROC: 5A09457 Assistance with Respiratory Ventilation, 24-96 Consecutive Hours, Continuous Positive Airway Pressure (ICD-10-PCS; 2023-02-26)
PROC: 0T9B70Z Drainage of Bladder with Drainage Device, Via Natural or Artificial Opening (ICD-10-PCS; 2023-02-28)
PROC: 4A033R1 Measurement of Arterial Saturation, Peripheral, Percutaneous Approach (ICD-10-PCS; 2023-02-28)
DX: A41.9 Sepsis, unspecified organism (principal); J18.9 Pneumonia, unspecified organism; J96.91 Respiratory failure, unspecified with hypoxia; S27.1XXA Traumatic hemothorax, initial encounter; R65.21 Severe sepsis with septic shock; S22.42XA Multiple fractures of ribs, left side, initial encounter for closed fracture; I13.0 Hypertensive heart and chronic kidney disease with heart failure and stage 1 through stage 4 chronic kidney disease, or unspecified chronic kidney disease; J98.11 Atelectasis; I50.22 Chronic systolic (congestive) heart failure; G93.40 Encephalopathy, unspecified; K92.2 Gastrointestinal hemorrhage, unspecified; S27.321A Contusion of lung, unilateral, initial encounter; N17.9 Acute kidney failure, unspecified; Z66 Do not resuscitate; Z20.822 Contact with and (suspected) exposure to COVID-19; E11.22 Type 2 diabetes mellitus with diabetic chronic kidney disease; I35.0 Nonrheumatic aortic (valve) stenosis; G25.81 Restless legs syndrome; F41.9 Anxiety disorder, unspecified; F32.A Depression, unspecified; G47.33 Obstructive sleep apnea (adult) (pediatric); E11.51 Type 2 diabetes mellitus with diabetic peripheral angiopathy without gangrene; E66.9 Obesity, unspecified; K21.9 Gastro-esophageal reflux disease without esophagitis; I65.21 Occlusion and stenosis of right carotid artery; N18.30 Chronic kidney disease, stage 3 unspecified; E11.40 Type 2 diabetes mellitus with diabetic neuropathy, unspecified; E83.42 Hypomagnesemia; E83.39 Other disorders of phosphorus metabolism; D63.1 Anemia in chronic kidney disease; R77.8 Other specified abnormalities of plasma proteins; I44.7 Left bundle-branch block, unspecified; I25.10 Atherosclerotic heart disease of native coronary artery without angina pectoris; Z95.5 Presence of coronary angioplasty implant and graft; Z95.2 Presence of prosthetic heart valve; K75.81 Nonalcoholic steatohepatitis (NASH); Z88.2 Allergy status to sulfonamides; Z88.8 Allergy status to other drugs, medicaments and biological substances; Z79.82 Long term (current) use of aspirin; Z79.899 Other long term (current) drug therapy; Z79.4 Long term (current) use of insulin; Z79.2 Long term (current) use of antibiotics; Z79.891 Long term (current) use of opiate analgesic; Z90.49 Acquired absence of other specified parts of digestive tract; Z87.39 Personal history of other diseases of the musculoskeletal system and connective tissue; Z99.89 Dependence on other enabling machines and devices; Z87.891 Personal history of nicotine dependence; Z68.39 Body mass index [BMI] 39.0-39.9, adult; Z99.81 Dependence on supplemental oxygen; Z98.49 Cataract extraction status, unspecified eye; W18.39XA Other fall on same level, initial encounter
CPT/HCPCS: 36415; 36600; 51702; 71045; 71260; 73140; 74177; 80048; 80053; 80069; 80202; 81001; 82803; 82947; 83605; 83735; 83880; 84100; 84145; 84484; 85014; 85018; 85025; 85027; 87040; 87070; 87086; 87205; 92610; 93005; 93010; 94640; 94660; 94664; 94667; 94760; 94762; 96361; 96365; 96366; 96367; 96368; 96372; 96374-59; 96375; 96376; 97110; 97112; 97116; 97162; 97165; 97530; 97535; 99285-25; A9270; C1751; C8929; C9113; G0378; J0456; J0692; J0696; J1170; J1644; J1815; J1940; J2270; J2405; J3010; J3370; J3475; J7030; J7050; J7060; P9047; Q9957; Q9967; U0002

== ENCOUNTER 2023-03-14 12:17 | Emergency (ER) | payer MEDICARE ==
[~2023-03-14] VITALS: Ht 165.1 cm; Wt 77.1 kg
[~2023-03-14 12:17] MED LIST changes: +DOXY100 PO; +Diflucan100 MG PO; +Norco 10-325 T1 EACH PO
[2023-03-14 13:21] LABS: BASOPHILS ABSOLUTE AUTO 0.05 K/mm3 (0.00-0.23); BASOPHILS PERCENT AUTO 1 % (0-2); EOSINOPHILS ABSOLUTE AUTO 0.16 K/mm3 (0.00-0.68); EOSINOPHILS PERCENT AUTO 2 % (0-6); Hematocrit 31.8 % (33.0-51.0); Hemoglobin 9.8 g/dL (11.5-16.0); IMMATURE GRAN ABSOLUTE AUTO 0.03 K/mm3 (0.00-0.10); IMMATURE GRAN PERCENT AUTO 0 % (0-1); LYMPHOCYTES ABSOLUTE AUTO 1.31 K/mm3 (0.84-5.20); LYMPHOCYTES PERCENT AUTO 19 % (21-46); MONOCYTES ABSOLUTE AUTO 0.64 K/mm3 (0.16-1.47); MONOCYTES PERCENT AUTO 9 % (4-13); Mean Corpuscular HGB Conc 30.8 g/dL (31.5-36.5); Mean Corpuscular Volume 97 fL (80-100); NEUTROPHILS ABSOLUTE AUTO 4.77 K/mm3 (1.96-9.15); NEUTROPHILS PERCENT AUTO 69 % (41-73); Platelet Count 237 K/mm3 (150-400); RDW Standard Deviation 63.6 fL (35.1-46.3); Red Blood Cell Count 3.27 M/mm3 (3.80-5.20); White Blood Cell Count 6.96 K/mm3 (4.00-11.30)
[2023-03-14 13:36] LABS: International Normalized Ratio 1.25
[2023-03-14 13:42] LABS: Albumin, Blood 2.9 g/dL (3.4-5.0); Albumin/Globulin Ratio 0.8 (0.8-1.8); Bilirubin, Total 0.5 mg/dL (0.1-1.0); Bun/Creatinine Ratio 27.4 (12.0-20.0); Calcium, Blood 9.6 mg/dL (8.5-10.1); Creatinine, Blood 0.95 mg/dL (0.40-1.00); Globulin, Blood 3.6 g/dL (2.2-4.0); Potassium, Blood 4.2 mmol/L (3.5-5.5); Total Protein, Blood 6.5 g/dL (6.4-8.2)
[2023-03-14] MEDS ORDERED: LIDO700A20 TOP (15:33)
[2023-03-14 15:39] VITALS: BP 118/45
== END 2023-03-14 15:49 | disposition home or self-care (01) ==
LOC: ER 12:17
PROVIDERS: Emergency Medicine
DX: R07.89 Other chest pain (principal); Z88.2 Allergy status to sulfonamides; Z88.8 Allergy status to other drugs, medicaments and biological substances; Z79.82 Long term (current) use of aspirin; Z79.4 Long term (current) use of insulin; Z79.51 Long term (current) use of inhaled steroids; Z79.899 Other long term (current) drug therapy; I13.0 Hypertensive heart and chronic kidney disease with heart failure and stage 1 through stage 4 chronic kidney disease, or unspecified chronic kidney disease; I50.20 Unspecified systolic (congestive) heart failure; N18.30 Chronic kidney disease, stage 3 unspecified; E11.22 Type 2 diabetes mellitus with diabetic chronic kidney disease; G47.33 Obstructive sleep apnea (adult) (pediatric); K21.9 Gastro-esophageal reflux disease without esophagitis; Z95.5 Presence of coronary angioplasty implant and graft; Z87.891 Personal history of nicotine dependence
CPT/HCPCS: 71045; 80053; 83880; 84484; 85025; 85610; 93005; 93010; 99284-25; A9270

== ENCOUNTER 2023-05-16 21:19 | Inpatient (IN) | payer MEDICARE ==
[~2023-05-16] VITALS: Ht 160 cm; Wt 83.4 kg
[~2023-05-16 21:19] MED LIST changes: +LIDO700A20 TOP
[2023-05-16] MEDS ORDERED: CARVEDILOL3.125 MG PO (21:38)
[2023-05-16 21:42] LABS: Bicarbonate Venous 25.8 mmol/L (24.0-30.0); PCO2 Venous 43.5 mmHg (38-42)
[2023-05-16 21:48] LABS: BASOPHILS ABSOLUTE AUTO 0.04 K/mm3 (0.00-0.23); BASOPHILS PERCENT AUTO 0 % (0-2); EOSINOPHILS ABSOLUTE AUTO 0.16 K/mm3 (0.00-0.68); EOSINOPHILS PERCENT AUTO 2 % (0-6); Hematocrit 44.9 % (33.0-51.0); Hemoglobin 13.9 g/dL (11.5-16.0); IMMATURE GRAN ABSOLUTE AUTO 0.06 K/mm3 (0.00-0.10); IMMATURE GRAN PERCENT AUTO 1 % (0-1); LYMPHOCYTES ABSOLUTE AUTO 1.77 K/mm3 (0.84-5.20); LYMPHOCYTES PERCENT AUTO 17 % (21-46); MONOCYTES ABSOLUTE AUTO 0.54 K/mm3 (0.16-1.47); MONOCYTES PERCENT AUTO 5 % (4-13); Mean Corpuscular Volume 91 fL (80-100); Mean Platelet Volume 11.8 fL (9.1-12.4); NEUTROPHILS ABSOLUTE AUTO 7.77 K/mm3 (1.96-9.15); NEUTROPHILS PERCENT AUTO 75 % (41-73); Platelet Count 168 K/mm3 (150-400); RDW Coefficient Variation 16.4 % (11.7-14.2); RDW Standard Deviation 54.8 fL (35.1-46.3); Red Blood Cell Count 4.96 M/mm3 (3.80-5.20); White Blood Cell Count 10.34 K/mm3 (4.00-11.30)
[2023-05-16 22:08] LABS: Albumin, Blood 3.1 g/dL (3.4-5.0); Albumin/Globulin Ratio 0.8 (0.8-1.8); Bilirubin, Total 0.6 mg/dL (0.1-1.0); Calcium, Blood 9.4 mg/dL (8.5-10.1); Creatinine, Blood 0.68 mg/dL (0.40-1.00); Globulin, Blood 3.8 g/dL (2.2-4.0); Potassium, Blood 4.4 mmol/L (3.5-5.5); Total Protein, Blood 6.9 g/dL (6.4-8.2)
[2023-05-17 04:20] VITALS: BP 157/88
[2023-05-17] MEDS ORDERED: OXYCODONE-ACET1 EAC3 PO (04:22)
[2023-05-17 05:43] LABS: BASOPHILS ABSOLUTE AUTO 0.03 K/mm3 (0.00-0.23); BASOPHILS PERCENT AUTO 0 % (0-2); EOSINOPHILS ABSOLUTE AUTO 0.01 K/mm3 (0.00-0.68); EOSINOPHILS PERCENT AUTO 0 % (0-6); Hematocrit 46.1 % (33.0-51.0); IMMATURE GRAN ABSOLUTE AUTO 0.09 K/mm3 (0.00-0.10); IMMATURE GRAN PERCENT AUTO 1 % (0-1); LYMPHOCYTES ABSOLUTE AUTO 0.64 K/mm3 (0.84-5.20); LYMPHOCYTES PERCENT AUTO 6 % (21-46); MONOCYTES ABSOLUTE AUTO 0.14 K/mm3 (0.16-1.47); MONOCYTES PERCENT AUTO 1 % (4-13); Mean Corpuscular HGB 27.9 pg (26.0-34.0); Mean Corpuscular HGB Conc 30.4 g/dL (31.5-36.5); Mean Corpuscular Volume 92 fL (80-100); NEUTROPHILS ABSOLUTE AUTO 10.01 K/mm3 (1.96-9.15); NEUTROPHILS PERCENT AUTO 92 % (41-73); Platelet Count 159 K/mm3 (150-400); RDW Coefficient Variation 16.7 % (11.7-14.2); RDW Standard Deviation 56.7 fL (35.1-46.3); Red Blood Cell Count 5.01 M/mm3 (3.80-5.20); White Blood Cell Count 10.92 K/mm3 (4.00-11.30)
--- NOTE | 2023-05-17 05:54 | NUR ---
ADMIT NOTE/SHIFT SUMMARY PT ADMITTED FROM ED AND BROUGHT TO MEDICAL FLOOR AT 0400 AM. PT CURRENTLY ON 2L O2 VIA NC. SATS ABOVE 95%. PT WAS ABLE TO WALK FROM WHEELCHAIR TO BED WITH NURSE ASSIST. PT STATES SHE USES A CANE AT BASELINE. INCONTINENT OF URINE, PUREWICK PLACED. PT ORIENTED TO ROOM AND APPROPRIATE USE OF CALL LIGHT. BED KEPT IN THE LOWEST POSITION WITH CALL LIGHT WITHIN REACH. WILL CONTINUE TO MONITOR UNTIL END OF SHIFT
[2023-05-17 06:11] LABS: Albumin, Blood 3.1 g/dL (3.4-5.0); Albumin/Globulin Ratio 0.8 (0.8-1.8); Bilirubin, Total 0.5 mg/dL (0.1-1.0); Bun/Creatinine Ratio 28.3 (12.0-20.0); Calcium, Blood 9.3 mg/dL (8.5-10.1); Creatinine, Blood 0.64 mg/dL (0.40-1.00); Magnesium, Blood 1.7 mg/dL (1.6-2.4); Potassium, Blood 4.4 mmol/L (3.5-5.5); Total Protein, Blood 7.1 g/dL (6.4-8.2)
--- NOTE | 2023-05-17 06:37 | NUR ---
COVID NASAL SWAB DONE, SENT TO LAB FOR TESTING. DROPLET PRECAUTIONS INITIATED UNTIL COVID RULED OUT. TOLERATED WELL. CALL LIGHT IN REACH
--- NOTE | 2023-05-17 07:21 | NUR ---
HYPERGLYCEMIA DR LUCIA NOTIFIED OF 448 BLOOD SUGAR WITH AM LABS AND NO INSULIN ORDERS. DR. LUCIA SAID HE WILL PLACE ORDERS.
[2023-05-17 07:38] VITALS: BP 156/87
[2023-05-17 08:02] LABS: Influenza A, PCR NEGATIVE (NEGATIVE); Influenza B, PCR NEGATIVE (NEGATIVE); Resp Syncytial Virus, PCR NEGATIVE (NEGATIVE); SARS-Cov-2 (COVID-19) PCR, MMC NEGATIVE (NEGATIVE)
[2023-05-17 09:07] LABS: Adenovirus Not Detected (NOT DETECT); Bordetella pertussis Not Detected (NOT DETECT); Chlamydophila pneumoniae Not Detected (NOT DETECT); Coronavirus 229E Not Detected (NOT DETECT); Coronavirus HKU1 Not Detected (NOT DETECT); Coronavirus NL63 Not Detected (NOT DETECT); Coronavirus OC43 Not Detected (NOT DETECT); Human Metapneumovirus Not Detected (NOT DETECT); Human Rhinovirus/Enterovirus Not Detected (NOT DETECT); Influenza A/2009-H1 Not Detected (NOT DETECT); Influenza A/H1 Not Detected (NOT DETECT); Influenza A/H3 Not Detected (NOT DETECT); Influenza B Not Detected (NOT DETECT); Mycoplasma pneumoniae Not Detected (NOT DETECT); Parainfluenza Virus 1 Not Detected (NOT DETECT); Parainfluenza Virus 2 Not Detected (NOT DETECT); Parainfluenza Virus 3 Not Detected (NOT DETECT); Parainfluenza Virus 4 Not Detected (NOT DETECT); Respiratory Syncytial Virus Not Detected (NOT DETECT); SARS-Cov-2 (COVID-19), BioFire Not Detected (NOT DETECT)
[2023-05-17 15:24] VITALS: BP 110/83
--- NOTE | 2023-05-17 18:17 | NUR ---
SHIFT SUMMARY PT TITRATED OFF OF O2 TODAY AT 1200. SATING IN THE 90S SINCE AT REST AND WITH MINIMAL EXERTION. PT DESATS TO 88% WHEN WALKING FARTHER THAN THE BATHROOM AND BACK. IV LASIX INCREASED THIS SHIFT. PT TOLERATING WELL. PURE WIK REMOVED AND PT USING THE BATHROOM NOW. MICONAZOLE ALSO ORDERED FOR FOLD RASH. NO OTHER ACUTE CHANGES IN ASSESSMENT AT THIS TIME. VS REVIEWED. CALL LIGHT IN REACH. DENIES OTHER NEEDS AT THIS TIME. SPOUSE AT BEDSIDE.
[2023-05-17 20:16] VITALS: BP 125/63
--- NOTE | 2023-05-18 03:34 | NUR ---
CUSTOMER CONTACT SPECIALIST SUMMARY VSS. ACCU CHECK AT HS 269, 1 UNIT INSULIN ADMIN. UP AD DEYANIRA WITHOUT VOICED VERTIGO OR DIFFICULTIES. O2 PER NC, THEN CPAP ON AT HS. HAS BEEN RESTING QUIETLY WITH FEW INTERRUPTIONS SINCE HS. CALL LIGHT IN REACH. WILL CONTINUE TO MONITOR
[2023-05-18 04:35] VITALS: BP 139/68
[2023-05-18 07:58] LABS: BASOPHILS ABSOLUTE AUTO 0.05 K/mm3 (0.00-0.23); BASOPHILS PERCENT AUTO 1 % (0-2); EOSINOPHILS ABSOLUTE AUTO 0.19 K/mm3 (0.00-0.68); EOSINOPHILS PERCENT AUTO 2 % (0-6); Hematocrit 42.8 % (33.0-51.0); Hemoglobin 13.2 g/dL (11.5-16.0); IMMATURE GRAN ABSOLUTE AUTO 0.05 K/mm3 (0.00-0.10); IMMATURE GRAN PERCENT AUTO 1 % (0-1); LYMPHOCYTES ABSOLUTE AUTO 2.27 K/mm3 (0.84-5.20); LYMPHOCYTES PERCENT AUTO 24 % (21-46); MONOCYTES PERCENT AUTO 8 % (4-13); Mean Corpuscular HGB Conc 30.8 g/dL (31.5-36.5); Mean Corpuscular Volume 91 fL (80-100); Mean Platelet Volume 11.1 fL (9.1-12.4); NEUTROPHILS ABSOLUTE AUTO 6.13 K/mm3 (1.96-9.15); NEUTROPHILS PERCENT AUTO 65 % (41-73); Platelet Count 152 K/mm3 (150-400); RDW Coefficient Variation 16.7 % (11.7-14.2); RDW Standard Deviation 55.7 fL (35.1-46.3); Red Blood Cell Count 4.72 M/mm3 (3.80-5.20); White Blood Cell Count 9.39 K/mm3 (4.00-11.30)
[2023-05-18 08:16] LABS: Bun/Creatinine Ratio 26.3 (12.0-20.0); Calcium, Blood 9.4 mg/dL (8.5-10.1); Creatinine, Blood 1.14 mg/dL (0.40-1.00); Potassium, Blood 3.8 mmol/L (3.5-5.5)
[2023-05-18 08:23] VITALS: BP 128/59
--- NOTE | 2023-05-18 15:33 | NUR ---
DISCHARGE HOME O2 EVAL COMPLETED TODAY. PT REQUIRING 2L O2 VIA NC WITH EXERTION ONLY. O2 TANK DELIVERED FOR DC AND SENT WITH THE PT. NO OTHER CHANGES IN ASSESSMENT PRIOR TO DC. PT & EDUCATED ON DC INSTRUCTIONS AND IMPORTANCE FOR CONTINUEING LASIX DOSAGE AND TO FOLLOW UP WITH PCP. PT WHEELED OUT BY AIDE & DRIVEN HOME BY .
== END 2023-05-18 15:35 | disposition home or self-care (01) | DRG 291 ==
LOC: ER 21:19 → MEDS 05-17 02:31
PROVIDERS: Emergency Medicine; Family Medicine; Internal Medicine; ADMIT Internal Medicine
PROC: 3E03329 Introduction of Other Anti-infective into Peripheral Vein, Percutaneous Approach (ICD-10-PCS; 2023-05-17)
PROC: 5A09357 Assistance with Respiratory Ventilation, Less than 24 Consecutive Hours, Continuous Positive Airway Pressure (ICD-10-PCS; principal; 2023-05-18)
DX: I13.0 Hypertensive heart and chronic kidney disease with heart failure and stage 1 through stage 4 chronic kidney disease, or unspecified chronic kidney disease (principal); A41.9 Sepsis, unspecified organism; I50.23 Acute on chronic systolic (congestive) heart failure; J96.21 Acute and chronic respiratory failure with hypoxia; N18.30 Chronic kidney disease, stage 3 unspecified; R79.1 Abnormal coagulation profile; E11.22 Type 2 diabetes mellitus with diabetic chronic kidney disease; I35.0 Nonrheumatic aortic (valve) stenosis; G25.81 Restless legs syndrome; K21.9 Gastro-esophageal reflux disease without esophagitis; F32.A Depression, unspecified; F41.9 Anxiety disorder, unspecified; G47.33 Obstructive sleep apnea (adult) (pediatric); I25.10 Atherosclerotic heart disease of native coronary artery without angina pectoris; M85.80 Other specified disorders of bone density and structure, unspecified site; E11.40 Type 2 diabetes mellitus with diabetic neuropathy, unspecified; K75.81 Nonalcoholic steatohepatitis (NASH); I65.21 Occlusion and stenosis of right carotid artery; Z20.822 Contact with and (suspected) exposure to COVID-19; Z88.2 Allergy status to sulfonamides; Z79.82 Long term (current) use of aspirin; Z79.02 Long term (current) use of antithrombotics/antiplatelets; Z99.81 Dependence on supplemental oxygen; Z88.8 Allergy status to other drugs, medicaments and biological substances; Z98.62 Peripheral vascular angioplasty status; Z90.49 Acquired absence of other specified parts of digestive tract; Z98.890 Other specified postprocedural states; Z98.49 Cataract extraction status, unspecified eye; Z95.5 Presence of coronary angioplasty implant and graft; Z95.2 Presence of prosthetic heart valve; Z79.899 Other long term (current) drug therapy; Z79.51 Long term (current) use of inhaled steroids; Z79.4 Long term (current) use of insulin; Z99.89 Dependence on other enabling machines and devices; Z87.891 Personal history of nicotine dependence; Z79.01 Long term (current) use of anticoagulants
CPT/HCPCS: 0202U; 0241U; 36415; 71046; 71260; 80048; 80053; 82803; 82947; 83735; 83880; 84145; 84484; 85025; 85379; 93005; 93010; 94640; 94660; 94664; 94761; 94762; 96365; 96367; 96375; 97110; 97116; 97162; 97165; 97530; 97535; 99285-25; A9270; C9113; J0456; J0696; J1650; J1815; J1940; J2405; J7050; Q9967

== ENCOUNTER 2024-01-03 19:51 | Emergency (ER) | payer MEDICARE ==
[~2024-01-03] VITALS: Ht 167.6 cm; Wt 117.9 kg
[~2024-01-03 19:51] MED LIST changes: +CARVEDILOL3.125 MG PO; +OXYCODONE-ACET1 EAC3 PO
[2024-01-03] MEDS ORDERED: Calcium Chloride 10% 10 ML SYR IV ONE (22:55)
[2024-01-03] MEDS ORDERED: Sodium Bicarb 8.4% 50 mEq Syringe IV ONE (22:55)
[2024-01-03] MEDS ORDERED: EPINEPhrine HCl 0.1 MG/ML 10ML SYR IV ONE (22:55)
== END 2024-01-04 01:20 ==
LOC: ER 19:51
DX: I46.9 Cardiac arrest, cause unspecified (principal); Z88.8 Allergy status to other drugs, medicaments and biological substances; Z88.2 Allergy status to sulfonamides; Z79.899 Other long term (current) drug therapy; Z79.84 Long term (current) use of oral hypoglycemic drugs; Z79.4 Long term (current) use of insulin; Z79.82 Long term (current) use of aspirin; E11.22 Type 2 diabetes mellitus with diabetic chronic kidney disease; I13.0 Hypertensive heart and chronic kidney disease with heart failure and stage 1 through stage 4 chronic kidney disease, or unspecified chronic kidney disease; N18.30 Chronic kidney disease, stage 3 unspecified; I50.20 Unspecified systolic (congestive) heart failure; G47.33 Obstructive sleep apnea (adult) (pediatric); K21.9 Gastro-esophageal reflux disease without esophagitis; I25.10 Atherosclerotic heart disease of native coronary artery without angina pectoris
CPT/HCPCS: 92950; 96374; 96375; 99285-25